=== PATIENT | female | born 1950 | race Caucasian/White ===

== ENCOUNTER 2020-06-28 | Inpatient (IN) | payer MEDICARE | END 2020-06-30 13:40 | DRG 190 | PROVIDERS: ADMIT Internal Medicine | PROC: 5A09457 Assistance with Respiratory Ventilation, 24-96 Consecutive Hours, Continuous Positive Airway Pressure (ICD-10-PCS; principal; 2020-06-28) | DX: J44.1 Chronic obstructive pulmonary disease with (acute) exacerbation (principal); J96.22 Acute and chronic respiratory failure with hypercapnia; J96.21 Acute and chronic respiratory failure with hypoxia; N17.0 Acute kidney failure with tubular necrosis; G93.41 Metabolic encephalopathy; I13.0 Hypertensive heart and chronic kidney disease with heart failure and stage 1 through stage 4 chronic kidney disease, or unspecified chronic kidney disease; E66.2 Morbid (severe) obesity with alveolar hypoventilation; Z68.43 Body mass index [BMI] 50.0-59.9, adult; L03.116 Cellulitis of left lower limb; L97.829 Non-pressure chronic ulcer of other part of left lower leg with unspecified severity; I50.32 Chronic diastolic (congestive) heart failure; E87.2 Acidosis; I27.20 Pulmonary hypertension, unspecified; I83.028 Varicose veins of left lower extremity with ulcer other part of lower leg; E11.22 Type 2 diabetes mellitus with diabetic chronic kidney disease; E11.42 Type 2 diabetes mellitus with diabetic polyneuropathy; E11.51 Type 2 diabetes mellitus with diabetic peripheral angiopathy without gangrene; Z89.611 Acquired absence of right leg above knee; E11.39 Type 2 diabetes mellitus with other diabetic ophthalmic complication; F31.9 Bipolar disorder, unspecified; Z79.4 Long term (current) use of insulin; Z20.822 Contact with and (suspected) exposure to COVID-19; G47.33 Obstructive sleep apnea (adult) (pediatric); E78.5 Hyperlipidemia, unspecified; N18.9 Chronic kidney disease, unspecified; E03.9 Hypothyroidism, unspecified; G89.4 Chronic pain syndrome; M47.816 Spondylosis without myelopathy or radiculopathy, lumbar region; E87.5 Hyperkalemia; I87.2 Venous insufficiency (chronic) (peripheral); I25.10 Atherosclerotic heart disease of native coronary artery without angina pectoris; G25.81 Restless legs syndrome; H40.9 Unspecified glaucoma; K21.9 Gastro-esophageal reflux disease without esophagitis; H42 Glaucoma in diseases classified elsewhere; G25.0 Essential tremor; E55.9 Vitamin D deficiency, unspecified; F41.9 Anxiety disorder, unspecified; Z99.81 Dependence on supplemental oxygen; Z79.82 Long term (current) use of aspirin; Z79.51 Long term (current) use of inhaled steroids; Z79.890 Hormone replacement therapy; Z79.01 Long term (current) use of anticoagulants; Z79.899 Other long term (current) drug therapy; Z87.891 Personal history of nicotine dependence; Z95.5 Presence of coronary angioplasty implant and graft; Z86.718 Personal history of other venous thrombosis and embolism; Z86.74 Personal history of sudden cardiac arrest; Z96.652 Presence of left artificial knee joint; Z98.42 Cataract extraction status, left eye; Z98.41 Cataract extraction status, right eye; Z90.81 Acquired absence of spleen; Z90.89 Acquired absence of other organs; Z90.710 Acquired absence of both cervix and uterus; Z90.722 Acquired absence of ovaries, bilateral; Z90.79 Acquired absence of other genital organ(s); Z87.42 Personal history of other diseases of the female genital tract; Z95.828 Presence of other vascular implants and grafts; Z98.890 Other specified postprocedural states; Z88.1 Allergy status to other antibiotic agents; Z88.8 Allergy status to other drugs, medicaments and biological substances; Z91.048 Other nonmedicinal substance allergy status; Z88.9 Allergy status to unspecified drugs, medicaments and biological substances; Z82.49 Family history of ischemic heart disease and other diseases of the circulatory system; Z83.3 Family history of diabetes mellitus; Z80.3 Family history of malignant neoplasm of breast; Z84.1 Family history of disorders of kidney and ureter; Z84.89 Family history of other specified conditions | CPT/HCPCS: 36415; 36600; 71045; 80053; 82306; 82803; 82805; 83605; 83615; 83735; 83880; 84145; 84484; 85025; 85379; 85610; 85652; 85730; 86140; 87040; 87070; 87077; 87186; 87205; 87635; 93005; 93306; 94640; 94660; 94760; 96361; 96374; 96375; 99291 ==

== ENCOUNTER 2020-07-10 13:56 | Inpatient (IN) | payer MEDICARE, OTHER ==
[2020-07-10] MEDS ORDERED: SODIUM CHLORIDE 0.9% 1,000 ML IV STA (15:13)
[2020-07-10] MEDS ORDERED: SODIUM CHLORIDE 0.9% 500 ML 500 ML IV ONE (15:13)
[2020-07-10] MEDS ORDERED: HYDROmorphone 1 MG/ML 1 ML SYRINGE IVP STA ×2 (15:14→19:15)
--- NOTE | 2020-07-10 15:17 | ED ---
Altered Mental Status HPI - General Chief Complaint: Altered Mental Status Stated Complaint: Altered Mental Status Time Seen by Provider: 07/10/20 14:45 Source: patient Mode of arrival: ambulatory Limitations: no limitations - History of Present Illness Initial Comments: This is a 69-year-old female who was brought in for evaluation of altered mental status apparently she woke up this morning and was alert and oriented x3 as opposed to normal for she has have a history of heart disease and stroke also [id number] amputation on the right. The family members present upon my evaluation he seems a have no new deficits. MD Complaint: altered mental status - Related Data Home Medications Medication Instructions Recorded Confirmed Acetaminophen Tab [Tylenol] 325 - 650 mg PO Q6H PRN 06/28/20 07/10/20 Albuterol Nebulized [Ventolin 2.5 mg INHALATION RT-BID PRN 06/28/20 07/10/20 Nebulized] Aspirin 81 mg PO DAILY 06/28/20 07/10/20 Atorvastatin [Lipitor] 40 mg PO HS 06/28/20 07/10/20 Baclofen 10 mg PO Q12H PRN 06/28/20 07/10/20 Ergocalciferol [Vitamin D2 (1250 1,250 mcg PO MO 06/28/20 07/10/20 Mcg = 56180 Iu)] Escitalopram [Lexapro] 20 mg PO DAILY 06/28/20 07/10/20 Fluticasone/Salmeterol [Advair Hfa 2 puff INHALATION RT-BID 06/28/20 07/10/20 115-21 Mcg Inhaler] Gemfibrozil [Lopid] 600 mg PO BID@0700,1600 06/28/20 07/10/20 Hydrocortisone Cream 1 applic TOPICAL Q12H PRN 06/28/20 07/10/20 [Hydrocortisone 2.5% Cream] Insulin Aspart [NovoLOG Flexpen] See Protocol SQ ACHS 06/28/20 07/10/20 Ketoconazole 2% Cream [Nizoral 2%] 1 applic TOPICAL Q12H PRN 06/28/20 07/10/20 Latanoprost/Pf [Latanoprost 0.005% 1 drop BOTH EYES HS 06/28/20 07/10/20 Eye Drop] Levothyroxine Sodium [Synthroid] 200 mcg PO DAILY@0500 06/28/20 07/10/20 Losartan [Cozaar] 50 mg PO DAILY 06/28/20 07/10/20 Metoprolol Succinate [Toprol XL] 50 mg PO BID 06/28/20 07/10/20 Mometasone Furoate [Elocon] 1 applic TOPICAL BID 06/28/20 07/10/20 QUEtiapine FUMARATE 300 mg PO HS@199906/28/20 07/10/20 Rivaroxaban [Xarelto] 20 mg PO HS 06/28/20 07/10/20 SILVER sulfADIAZINE Cream 1 applic TOPICAL BID 06/28/20 07/10/20 [Silvadene 1% Cream] Tamsulosin [Flomax] 0.4 mg PO BID@1399,199906/28/20 07/10/20 rOPINIRole HCL [Requip] 0.5 mg PO HS@199906/28/20 07/10/20 sitaGLIPtin PHOSPHATE [Januvia] 50 mg PO DAILY 06/28/20 07/10/20 Amoxicillin/Potassium Clav 1 tab PO BID@08,199907/10/20 07/10/20 [Augmentin 875-125 Tablet] Furosemide [Lasix] 40 mg PO DAILY@49907/10/20 07/10/20 Insulin Aspart [NovoLOG Flexpen] 13 units SQ AC-TID 07/10/20 07/10/20 Insulin Glargine [Lantus] 96 unit SQ HS 07/10/20 07/10/20 LORazepam [Ativan] 0.5 mg PO HS 07/10/20 07/10/20 Primidone [Mysoline] 250 mg PO HS@199907/10/20 07/10/20 Previous Rx's Medication Instructions Recorded HYDROcodone/APAP 7.5-325MG [[place] 1 tab PO Q8H PRN #9 tab 06/30/20 7.5-325] Ipratropium-Albuterol Nebulize 3 ml INHALATION RT-TID ml 06/30/20 [Duoneb 0.5 mg-3 mg/3 ml Soln] Pregabalin [Lyrica] 100 mg PO BID@799,1999 #6 cap 06/30/20 Allergies Allergy/AdvReac Type Severity Reaction Status Date / Time adhesive tape Allergy Unknown Verified 07/10/20 14:10 sertraline [From Zoloft] Allergy Unknown Verified 07/10/20 14:10 vancomycin Allergy Unknown Verified 07/10/20 14:10 birds Allergy Unknown Uncoded 06/28/20 10:38 Review of Systems ROS Statement: Those systems with pertinent positive or pertinent negative responses have been documented in the HPI. ROS Other: All systems not noted in ROS Statement are negative. Past Medical History Past Medical History: Heart Failure, COPD, Diabetes Mellitus, Hypertension, Renal Disease, Sleep Apnea/CPAP/BIPAP History of Any Multi-Drug Resistant Organisms: None Reported Past Surgical History: Hysterectomy Additional Past Surgical History / Comment(s): Above knee rt leg amputation. Spleen removal Past Psychological History: Anxiety, Depression Smoking Status: Former smoker Past Alcohol Use History: None Reported Past Drug Use History: None Reported General Exam - General Exam Comments Initial Comments: This is a well-developed obese female who is awake alert oriented 3 she demonstrates a tremor which apparently is normal for her and was somewhat increased today Limitations: no limitations General appearance: alert, in no apparent distress Head exam: Present: atraumatic, normocephalic, normal inspection Eye exam: Present: normal appearance, PERRL, EOMI. Absent: scleral icterus, conjunctival injection, periorbital swelling ENT exam: Present: mucous membranes dry Neck exam: Present: normal inspection, full ROM. Absent: tenderness, meningismus, lymphadenopathy Respiratory exam: Present: decreased breath sounds. Absent: respiratory distress, wheezes, rales, rhonchi, stridor Cardiovascular Exam: Present: regular rate, normal rhythm, normal heart sounds. Absent: systolic murmur, diastolic murmur, rubs, gallop, clicks GI/Abdominal exam: Present: soft, normal bowel sounds, other (Obese abdomen nontender). Absent: distended, tenderness, guarding, rebound, rigid Rectal exam: Present: deferred Extremities exam: Present: full ROM, normal capillary refill, other (Above the patient on the right wound is well-dressed on the left lower extremity). Absent: tenderness, pedal edema, joint swelling, calf tenderness Back exam: Present: normal inspection Neurological exam: Present: alert, oriented X3, CN II-XII intact Psychiatric exam: Present: normal affect, normal mood Skin exam: Present: warm, dry, intact, normal color. Absent: rash Course Vital Signs 0607/10/20 07/10/20 14:05 15:55 17:46 Temperature 97.8 F Pulse Rate 69 83 65 Respiratory 18 18 18 Rate Blood Pressure 141/68 156/85 123/69 O2 Sat by Pulse 93 L 92 L 93 L Oximetry 07/10/20 18:00 Temperature Pulse Rate 65 Respiratory 18 Rate Blood Pressure 128/64 O2 Sat by Pulse 93 L Oximetry Medical Decision Making - Medical Decision Making I did discuss findings with the patient family as well as with Dr. Silva. He does have evidence of dehydration as well as UTI per family members the patient is not that were normal cognitive function at this time. CT was negative. Patient will be admitted for IV fluids and buttock treatment. - Lab Data Result diagrams: 07/10/20 15:20 07/10/20 15:20 Lab Results 07/10/20 07/10/20 07/10/20 Range/Units 15:20 15:20 15:20 WBC 7.7 (3.8-10.6) k/uL RBC 4.20 (3.80-5.40) m/uL Hgb 13.7 (11.4-16.0) gm/dL Hct 41.6 (34.0-46.0) % MCV 99.0 (80.0-100.0) fL MCH 32.7 (25.0-35.0) pg MCHC 33.0 (31.0-37.0) g/dL RDW 15.4 (11.5-15.5) % Plt Count 265 (150-450) k/uL MPV 9.8 Neutrophils % 48 % Lymphocytes % 35 % Monocytes % 8 % Eosinophils % 5 % Basophils % 2 % Neutrophils # 3.7 (1.3-7.7) k/uL Lymphocytes # 2.7 (1.0-4.8) k/uL Monocytes # 0.7 (0-1.0) k/uL Eosinophils # 0.4 (0-0.7) k/uL Basophils # 0.1 (0-0.2) k/uL Macrocytosis Slight PT 10.5 (9.0-12.0) sec INR 1.0 (<1.2) APTT 23.5 (22.0-30.0) sec Sodium (137-145) mmol/L Potassium (3.5-5.1) mmol/L Chloride (98-107) mmol/L Carbon Dioxide (22-30) mmol/L Anion Gap mmol/L BUN (7-17) mg/dL Creatinine (0.52-1.04) mg/dL Est GFR (CKD-EPI)AfAm (>60 ml/min/1.73 sqM) Est GFR (CKD-EPI)NonAf (>60 ml/min/1.73 sqM) Glucose (74-99) mg/dL Plasma Lactic Acid Jonathan (0.7-2.0) mmol/L Calcium (8.4-10.2) mg/dL Magnesium (1.6-2.3) mg/dL Total Bilirubin (0.2-1.3) mg/dL AST (14-36) U/L ALT (4-34) U/L Alkaline Phosphatase (38-126) U/L Ammonia (<30) umol/L Creatine Kinase (30-135) U/L Troponin I (0.000-0.034) ng/mL Total Protein (6.3-8.2) g/dL Albumin (3.5-5.0) g/dL Urine Color Light Yellow Urine Appearance Cloudy H (Clear) Urine pH 6.0 (5.0-8.0) Ur Specific [place] 1.015 (1.001-1.035) Urine Protein 2+ H (Negative) Urine Glucose (UA) Negative (Negative) Urine Ketones Negative (Negative) Urine Blood Trace H (Negative) Urine Nitrite Negative (Negative) Urine Bilirubin Negative (Negative) Urine Urobilinogen <2.0 (<2.0) mg/dL Ur Leukocyte Esterase Large H (Negative) Urine RBC 24 H (0-5) /hpf Urine WBC >182 H (0-5) /hpf Urine WBC Clumps Few H (None) /hpf Ur Squamous Epith Cells 24 H (0-4) /hpf Urine Bacteria Rare H (None) /hpf Hyaline Casts 17 H (0-2) /lpf Urine Mucus Rare H (None) /hpf Urine Yeast (Budding) Occasional H (None) /hpf Urine Opiates Screen Detected H (NotDetected) Ur Oxycodone Screen Not Detected (NotDetected) Urine Methadone Screen Not Detected (NotDetected) Ur Propoxyphene Screen Not Detected (NotDetected) Ur Barbiturates Screen Detected H (NotDetected) U Tricyclic Antidepress Detected H (NotDetected) Ur Phencyclidine Scrn Not Detected (NotDetected) Ur Amphetamines Screen Not Detected (NotDetected) U Methamphetamines Scrn Not Detected (NotDetected) U Benzodiazepines Scrn Detected H (NotDetected) Urine Cocaine Screen Not Detected (NotDetected) U Marijuana (THC) Screen Not Detected (NotDetected) 07/10/20 07/10/20 07/10/20 Range/Units 15:20 15:20 15:20 WBC (3.8-10.6) k/uL RBC (3.80-5.40) m/uL Hgb (11.4-16.0) gm/dL Hct (34.0-46.0) % MCV (80.0-100.0) fL MCH (25.0-35.0) pg MCHC (31.0-37.0) g/dL RDW (11.5-15.5) % Plt Count (150-450) k/uL MPV Neutrophils % % Lymphocytes % % Monocytes % % Eosinophils % % Basophils % % Neutrophils # (1.3-7.7) k/uL Lymphocytes # (1.0-4.8) k/uL Monocytes # (0-1.0) k/uL Eosinophils # (0-0.7) k/uL Basophils # (0-0.2) k/uL Macrocytosis PT (9.0-12.0) sec INR (<1.2) APTT (22.0-30.0) sec Sodium 143 (137-145) mmol/L Potassium 5.2 H (3.5-5.1) mmol/L Chloride 101 (98-107) mmol/L Carbon Dioxide 32 H (22-30) mmol/L Anion Gap 10 mmol/L BUN 40 H (7-17) mg/dL Creatinine 1.36 H (0.52-1.04) mg/dL Est GFR (CKD-EPI)AfAm 47 (>60 ml/min/1.73 sqM) Est GFR (CKD-EPI)NonAf 40 (>60 ml/min/1.73 sqM) Glucose 150 H (74-99) mg/dL Plasma Lactic Acid Jonathan 1.5 (0.7-2.0) mmol/L Calcium 10.5 H (8.4-10.2) mg/dL Magnesium 2.3 (1.6-2.3) mg/dL Total Bilirubin 0.3 (0.2-1.3) mg/dL AST 43 H (14-36) U/L ALT 20 (4-34) U/L Alkaline Phosphatase 119 (38-126) U/L Ammonia 31 H (<30) umol/L Creatine Kinase 51 (30-135) U/L Troponin I 0.017 (0.000-0.034) ng/mL Total Protein 7.5 (6.3-8.2) g/dL Albumin 4.1 (3.5-5.0) g/dL Urine Color Urine Appearance (Clear) Urine pH (5.0-8.0) Ur Specific [place] (1.001-1.035) Urine Protein (Negative) Urine Glucose (UA) (Negative) Urine Ketones (Negative) Urine Blood (Negative) Urine Nitrite (Negative) Urine Bilirubin (Negative) Urine Urobilinogen (<2.0) mg/dL Ur Leukocyte Esterase (Negative) Urine RBC (0-5) /hpf Urine WBC (0-5) /hpf Urine WBC Clumps (None) /hpf Ur Squamous Epith Cells (0-4) /hpf Urine Bacteria (None) /hpf Hyaline Casts (0-2) /lpf Urine Mucus (None) /hpf Urine Yeast (Budding) (None) /hpf Urine Opiates Screen (NotDetected) Ur Oxycodone Screen (NotDetected) Urine Methadone Screen (NotDetected) Ur Propoxyphene Screen (NotDetected) Ur Barbiturates Screen (NotDetected) U Tricyclic Antidepress (NotDetected) Ur Phencyclidine Scrn (NotDetected) Ur Amphetamines Screen (NotDetected) U Methamphetamines Scrn (NotDetected) U Benzodiazepines Scrn (NotDetected) Urine Cocaine Screen (NotDetected) U Marijuana (THC) Screen (NotDetected) - EKG Data -: EKG Interpreted by Me EKG shows normal: sinus rhythm EKG Comments: Sinus rhythm first-degree AV block rate 68. Interval 220 QRS duration 120 daily since QTC 406/431 the posterior fascicular block - Radiology Data Radiology results: report reviewed (Imaging shows evidence of cardiomegaly some increased pulmonary vascular markings), image reviewed Disposition Clinical Impression: Delirium due to general medical condition, Urinary tract infection, Dehydration, Failure to thrive Disposition: ADMITTED IP TO THIS [facility] Condition: Fair Referrals: Damian Silva MD [Primary Care Provider] - 1-2 days
[2020-07-10 15:45] LABS: Basophils # (A) 0.1 k/uL (0-0.2); Basophils % (A) 2 %; Eosinophils # (A) 0.4 k/uL (0-0.7); Eosinophils % (A) 5 %; HCT 41.6 % (34.0-46.0); HGB 13.7 gm/dL (11.4-16.0); Lymphocytes # (A) 2.7 k/uL (1.0-4.8); Lymphocytes % (A) 35 %; MCH 32.7 pg (25.0-35.0); Macrocytosis Slight; Mean Platelet Volume 9.8; Monocytes # (A) 0.7 k/uL (0-1.0); Monocytes % (A) 8 %; Neutrophils # (A) 3.7 k/uL (1.3-7.7); Neutrophils % (A) 48 %; Platelet Count 265 k/uL (150-450); RDW 15.4 % (11.5-15.5); WBC 7.7 k/uL (3.8-10.6)
[2020-07-10 15:58] LABS: Partial Thromboplastin Time 23.5 sec (22.0-30.0); Prothrombin Time 10.5 sec (9.0-12.0)
[2020-07-10 16:15] LABS: Albumin 4.1 g/dL (3.5-5.0); Calcium 10.5 mg/dL (8.4-10.2); Magnesium 2.3 mg/dL (1.6-2.3); Potassium 5.2 mmol/L (3.5-5.1); Total Bilirubin 0.3 mg/dL (0.2-1.3); Total Protein 7.5 g/dL (6.3-8.2)
[2020-07-10 16:17] LABS: Lactic Acid, Venous 1.5 mmol/L (0.7-2.0)
[2020-07-10 16:24] LABS: Appearance,Urine Cloudy (Clear); Bacteria,Urine Rare /hpf; Bilirubin,Urine Negative (Negative); Blood,Urine Trace (Negative); Budding Yeast,Urine Occasional /hpf; Color,Urine Light Yellow; Glucose,Urine (UA) Negative (Negative); Hyaline Casts,Urine 17 /lpf (0-2); Ketones,Urine Negative (Negative); Leukocyte Esterase,Urine Large (Negative); Mucus,Urine Rare /hpf; Nitrite,Urine Negative (Negative); Protein,Urine 2+ (Negative); RBC,Urine 24 /hpf (0-5); Specific Gravity,Urine 1.015 (1.001-1.035); Squamous Epithelial Cell,Urine 24 /hpf (0-4); Urobilinogen,Urine <2.0 mg/dL (<2.0); WBC,Urine >182 /hpf (0-5)
[2020-07-10 16:27] LABS: Amphetamine Screen,Urine Not Detected (NotDetected); Barbiturate Screen,Urine Detected (NotDetected); Benzodiazepines Screen,Urine Detected (NotDetected); Cocaine Screen,Urine Not Detected (NotDetected); Methadone Screen, Urine Not Detected (NotDetected); Opiate Screen,Urine Detected (NotDetected); Oxycodone Screen, Urine Not Detected (NotDetected); Phencyclidine Screen,Urine Not Detected (NotDetected); Tricyclic Antidepressant,Urine Detected (NotDetected); Urn Cannabinoid Scrn Not Detected (NotDetected)
--- NOTE | 2020-07-10 16:31 | XR ---
EXAMINATION TYPE: XR chest 2V DATE OF EXAM: 07/10/2020 COMPARISON: Chest x-ray June 28, 2020 HISTORY: Altered mental status and weakness. TECHNIQUE: Frontal and lateral views of the chest are obtained. FINDINGS: Persistent cardiomegaly with improving central vascular congestion and persistent mild int erstitial edema. Exam suboptimal due to large body habitus. No new focal airspace opacity. Osseous st ructures are intact. IMPRESSION: Persistent cardiomegaly. Improved central vascular congestion. Persistent mild interstiti al edema.
[2020-07-10] MEDS ORDERED: cefTRIAXone IN SWFI 1,000 MG/10 ML SYRINGE IVP STA (17:15)
--- NOTE | 2020-07-10 17:49 | CT ---
EXAMINATION TYPE: CT brain wo con DATE OF EXAM: 07/10/2020 COMPARISON: None HISTORY: Altered mental status. CT DLP: 1099.4 mGycm Automated exposure control for dose reduction was used. Helical imaging through the brain. FINDINGS: There is no hemorrhage or hydrocephalus. No mass effect. Brain density is maintained. Calvarium is in tact. There are cerebral vascular calcifications. Paranasal sinuses are well aerated. Orbits show sym metric. IMPRESSION: NO ACUTE ABNORMALITIES EVIDENT.
[2020-07-10] MEDS ORDERED: NALOXONE 0.4 MG/ML 1 ML VIAL IV PRN (19:49)
[2020-07-10] MEDS ORDERED: CLOTRIMAZOLE 1% CREAM 30 GM TUBE TOPICAL PRN (19:51)
[2020-07-10] MEDS ORDERED: HYDROcodone/APAP 7.5-325MG 1 EACH TAB PO PRN (19:51)
[2020-07-10] MEDS ORDERED: HYDROCORTISONE TOPICAL PRN (19:51)
[2020-07-10] MEDS ORDERED: QUEtiapine 100 MG TAB PO SCH (20:00)
[2020-07-10] MEDS ORDERED: LORazepam 0.5 MG TAB PO SCH (21:00)
[2020-07-10] MEDS: BACLOFEN 10 MG TAB PO PRN (22:25)
[2020-07-10] MEDS: HYDROmorphone 1 MG/ML 1 ML SYRINGE IVP PRN (22:27)
[2020-07-10] MEDS: ATORVASTATIN 40 MG TAB PO SCH (22:28)
[2020-07-10] MEDS: PRIMIDONE 250 MG TAB PO SCH (22:29)
[2020-07-10] MEDS: LATANOPROST 0.005% OPHTH DROPS 2.5 ML BTL BOTH EYES SCH (22:29)
[2020-07-10] MEDS: INSULIN DETEMIR (LEVEMIR) 100 UNIT/ML SYR SQ SCH (22:30)
[2020-07-10] MEDS: TAMSULOSIN 0.4 MG CAP.ER.24H PO SCH (23:00)
[2020-07-10] MEDS: PREGABALIN 100 MG CAP PO SCH (23:00)
[2020-07-10] MEDS: SODIUM CHLORIDE 0.9% 1,000 ML IV SCH (23:01)
[2020-07-10] MEDS: RIVAROXABAN 20 MG TAB PO SCH (23:02)
[2020-07-10] MEDS: TRIAMCINOLONE 0.1% CREAM 80 GM TUBE TOPICAL SCH (23:02)
[2020-07-10] MEDS: METOPROLOL SUCCINATE (ER) 50 MG TAB.ER.24H PO SCH (23:11)
[2020-07-11] MEDS: SYMBICORT 160-4.5 MCG INHALER INHALATION SCH ×3 (00:15→19:41)
[2020-07-11] MEDS: IPRATROPIUM-ALBUTEROL 3 ML NEB INHALATION SCH ×4 (00:15→19:41)
[2020-07-11] MEDS: PREGABALIN 100 MG CAP PO SCH (00:29)
[2020-07-11] MEDS: HYDROmorphone 1 MG/ML 1 ML SYRINGE IVP PRN ×3 (02:01→08:21)
[2020-07-11] MEDS: LEVOTHYROXINE 100 MCG TAB PO SCH (05:08)
[2020-07-11] MEDS: FUROSEMIDE 40 MG TAB PO SCH (05:08)
[2020-07-11 08:16] LABS: Glucose,Whole Blood 211 mg/dL (75-99)
[2020-07-11] MEDS: INSULIN ASPART (NovoLOG) 100 UNIT/ML VIAL SQ SCH ×3 (08:20→18:12)
[2020-07-11] MEDS: LOSARTAN 50 MG TAB PO SCH (08:21)
[2020-07-11] MEDS: LINAGLIPTIN 5 MG TABLET PO SCH (08:21)
[2020-07-11] MEDS: PANTOPRAZOLE 40 MG/10 ML VIAL IV SCH (08:21)
[2020-07-11] MEDS: METOPROLOL SUCCINATE (ER) 50 MG TAB.ER.24H PO SCH ×2 (08:21→21:25)
[2020-07-11] MEDS: FENOFIBRATE 160 MG TAB PO SCH (08:21)
[2020-07-11] MEDS: ESCITALOPRAM 20 MG TAB PO SCH (08:21)
[2020-07-11] MEDS: ASPIRIN 81 MG PO SCH (08:24)
[2020-07-11] MEDS ORDERED: cefTRIAXone IN SWFI 1,000 MG/10 ML SYRINGE IVP SCH (09:00)
[2020-07-11] MEDS: SODIUM CHLORIDE 0.9% 1,000 ML IV SCH ×2 (11:57→12:03)
[2020-07-11] MEDS: TRIAMCINOLONE 0.1% CREAM 80 GM TUBE TOPICAL SCH ×2 (11:58→21:31)
[2020-07-11 12:30] LABS: Glucose,Whole Blood 139 mg/dL (75-99)
--- NOTE | 2020-07-11 14:21 | P.HPIM ---
History of Present Illness 69 [id number] female was brought in because of altered mental status which started yesterday. Patient is on multiple medications that can cause a toxic encephalopathy and altered mental status. Patient urine analysis today is a bnormal but it's a contaminated urine sample patient doesn't have any fever doesn't have any leukocytosis and unable to get much of the history from the patient patient has severe peripheral vascular disease with the ammonia amputation on the right side in the left leg does have redness and chronic venous stasis and ulcer which didn't appear infected but there is surrounding skin which appeared cellulitic. I'm unable to get a history from the patient because of her drowsiness. Patient was and creatinine is 1.3 patient was recently hospitalized for acute renal failure since then her creatinine has been around 1.3. Patient creatinine earlier this year is around 1. Review of Systems Unable to obtain due to her clinical condition Past Medical History Past Medical History: Asthma, Coronary Artery Disease (CAD), Heart Failure, COPD, CVA/TIA, Dementia, Diabetes Mellitus, Deep Vein Thrombosis (DVT), Eye Disorder, Hyperlipidemia, Hypertension, Liver Disease, Myocardial Infarction ([place]), Renal Disease, Sleep Apnea/CPAP/BIPAP, Thyroid Disorder, Vascular Disorder Additional Past Medical History / Comment(s): Pt recently admitted to [facility] on 06/28/20 with acute hypercarbic respiratory failure d/t CO2 narcosis d/t exacerbation COPD with obesity hypoventilation syndrome, JANES, metabolis encephalopathy d/t CO2 narcosis. 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 Last Myocardial Infarction Date:: 2009 History of Any Multi-Drug Resistant Organisms: None Reported Past Surgical History: Heart Catheterization With Stent, Hysterectomy, Joint Replacement Additional Past Surgical History / Comment(s): Splenectomy, R AKA, bilateral total knee arthroplasties, R AKA, PCI with stent, "umbrella" device inserted d/t DVTs. Past Anesthesia/Blood Transfusion Reactions: No Reported Reaction, Motion Sickness Date of Last Stent Placement:: 2009 Smoking Status: Former smoker - Past Family History Mother Family Medical History: Coronary Artery Disease (CAD), Myocardial Infarction ([place]) Additional Family Medical History / Comment(s): Mother of a [place] in her 60s. Father Family Medical History: Respiratory Disorder Additional Family Medical History / Comment(s): ETOH abuse, TB Medications and Allergies Home Medications Medication Instructions Recorded Confirmed Type Acetaminophen Tab [Tylenol] 325 - 650 mg PO Q6H PRN 06/28/20 07/10/20 History Albuterol Nebulized [Ventolin 2.5 mg INHALATION RT-BID PRN 06/28/20 07/10/20 History Nebulized] Aspirin 81 mg PO DAILY 06/28/20 07/10/20 History Atorvastatin [Lipitor] 40 mg PO HS 06/28/20 07/10/20 History Baclofen 10 mg PO Q12H PRN 06/28/20 07/10/20 History Ergocalciferol [Vitamin D2 (1250 1,250 mcg PO MO 06/28/20 07/10/20 History Mcg = 66798 Iu)] Escitalopram [Lexapro] 20 mg PO DAILY 06/28/20 07/10/20 History Fluticasone/Salmeterol [Advair Hfa 2 puff INHALATION RT-BID 06/28/20 07/10/20 History 115-21 Mcg Inhaler] Gemfibrozil [Lopid] 600 mg PO BID@0700,1600 06/28/20 07/10/20 History Hydrocortisone Cream 1 applic TOPICAL Q12H PRN 06/28/20 07/10/20 History [Hydrocortisone 2.5% Cream] Insulin Aspart [NovoLOG Flexpen] See Protocol SQ ACHS 06/28/20 07/10/20 History Ketoconazole 2% Cream [Nizoral 2%] 1 applic TOPICAL Q12H PRN 06/28/20 07/10/20 History Latanoprost/Pf [Latanoprost 0.005% 1 drop BOTH EYES HS 06/28/20 07/10/20 History Eye Drop] Levothyroxine Sodium [Synthroid] 200 mcg PO DAILY@0500 06/28/20 07/10/20 History Losartan [Cozaar] 50 mg PO DAILY 06/28/20 07/10/20 History Metoprolol Succinate [Toprol XL] 50 mg PO BID 06/28/20 07/10/20 History Mometasone Furoate [Elocon] 1 applic TOPICAL BID 06/28/20 07/10/20 History QUEtiapine FUMARATE 300 mg PO HS@199906/28/20 07/10/20 History Rivaroxaban [Xarelto] 20 mg PO HS 06/28/20 07/10/20 History SILVER sulfADIAZINE Cream 1 applic TOPICAL BID 06/28/20 07/10/20 History [Silvadene 1% Cream] Tamsulosin [Flomax] 0.4 mg PO BID@1400,199906/28/20 07/10/20 History rOPINIRole HCL [Requip] 0.5 mg PO HS@199906/28/20 07/10/20 History sitaGLIPtin PHOSPHATE [Januvia] 50 mg PO DAILY 06/28/20 07/10/20 History HYDROcodone/APAP 7.5-325MG [[place] 1 tab PO Q8H PRN #9 tab 06/30/20 07/10/20 Rx 7.5-325] Ipratropium-Albuterol Nebulize 3 ml INHALATION RT-TID ml 06/30/20 07/10/20 Rx [Duoneb 0.5 mg-3 mg/3 ml Soln] Pregabalin [Lyrica] 100 mg PO BID@0800,1999 #6 cap 06/30/20 07/10/20 Rx Amoxicillin/Potassium Clav 1 tab PO BID@08,199907/10/20 07/10/20 History [Augmentin 875-125 Tablet] Furosemide [Lasix] 40 mg PO DAILY@0500 07/10/20 07/10/20 History Insulin Aspart [NovoLOG Flexpen] 13 units SQ AC-TID 07/10/20 07/10/20 History Insulin Glargine [Lantus] 96 unit SQ HS 07/10/20 07/10/20 History LORazepam [Ativan] 0.5 mg PO HS 07/10/20 07/10/20 History Primidone [Mysoline] 250 mg PO HS@199907/10/20 07/10/20 History Allergies Allergy/AdvReac Type Severity Reaction Status Date / Time adhesive tape Allergy Unknown Verified 07/10/20 14:10 sertraline [From Zoloft] Allergy Unknown Verified 07/10/20 14:10 vancomycin Allergy Unknown Verified 07/10/20 14:10 birds Allergy Unknown Uncoded 06/28/20 10:38 Physical Exam Vitals: Vital Signs Temp Pulse Pulse Resp BP BP Pulse Ox 07/11/20 13:22 84 07/11/20 13:09 84 07/11/20 11:46 98.6 F 80 22 132/71 93 L 07/11/20 10:13 87 18 143/70 93 L 07/11/20 07:43 89 18 07/11/20 07:34 87 18 93 L 07/11/20 04:00 79 18 115/63 96 07/11/20 01:58 80 22 109/50 97 07/10/20 23:56 81 18 124/59 95 07/10/20 18:00 65 18 128/64 93 L 07/10/20 17:46 65 18 123/69 93 L 07/10/20 15:55 83 18 156/85 92 L Intake and Output 07/10/20 07/11/20 07/11/20 22:59 06:59 14:59 Other: # Voids 0 Weight 136.985 kg PHYSICAL EXAMINATION: GENERAL: Patient is drowsy and evidences orientation doesn't provide any history HEENT: Pupils are round and equally reacting to light. EOMI. No scleral icterus. No conjunctival pallor. Normocephalic, atraumatic. No pharyngeal erythema. No thyromegaly. CARDIOVASCULAR: S1 and S2 present. No murmurs, rubs, or gallops. PULMONARY: Chest is clear to auscultation, no wheezing or crackles. ABDOMEN: Soft, nontender, nondistended, normoactive bowel sounds. No palpable organomegaly. MUSCULOSKELETAL: No joint swelling or deformity. EXTREMITIES: No cyanosis, clubbing, or pedal edema. NEUROLOGICAL: Excessively drowsy SKIN: No rashes. Results CBC & Chem 7: 07/10/20 15:20 07/10/20 15:20 Labs: Abnormal Lab Results - Last 24 Hours (Table) 07/10/20 07/10/20 07/10/20 Range/Units 15:20 15:20 15:20 Potassium 5.2 H (3.5-5.1) mmol/L Carbon Dioxide 32 H (22-30) mmol/L BUN 40 H (7-17) mg/dL Creatinine 1.36 H (0.52-1.04) mg/dL Glucose 150 H (74-99) mg/dL POC Glucose (mg/dL) (75-99) mg/dL Calcium 10.5 H (8.4-10.2) mg/dL AST 43 H (14-36) U/L Ammonia 31 H (<30) umol/L Urine Appearance Cloudy H (Clear) Urine Protein 2+ H (Negative) Urine Blood Trace H (Negative) Ur Leukocyte Esterase Large H (Negative) Urine RBC 24 H (0-5) /hpf Urine WBC >182 H (0-5) /hpf Urine WBC Clumps Few H (None) /hpf Ur Squamous Epith Cells 24 H (0-4) /hpf Urine Bacteria Rare H (None) /hpf Hyaline Casts 17 H (0-2) /lpf Urine Mucus Rare H (None) /hpf Urine Yeast (Budding) Occasional H (None) /hpf Urine Opiates Screen Detected H (NotDetected) Ur Barbiturates Screen Detected H (NotDetected) U Tricyclic Antidepress Detected H (NotDetected) U Benzodiazepines Scrn Detected H (NotDetected) 07/11/20 07/11/20 Range/Units 08:14 12:29 Potassium (3.5-5.1) mmol/L Carbon Dioxide (22-30) mmol/L BUN (7-17) mg/dL Creatinine (0.52-1.04) mg/dL Glucose (74-99) mg/dL POC Glucose (mg/dL) 211 H 139 H (75-99) mg/dL Calcium (8.4-10.2) mg/dL AST (14-36) U/L Ammonia (<30) umol/L Urine Appearance (Clear) Urine Protein (Negative) Urine Blood (Negative) Ur Leukocyte Esterase (Negative) Urine RBC (0-5) /hpf Urine WBC (0-5) /hpf Urine WBC Clumps (None) /hpf Ur Squamous Epith Cells (0-4) /hpf Urine Bacteria (None) /hpf Hyaline Casts (0-2) /lpf Urine Mucus (None) /hpf Urine Yeast (Budding) (None) /hpf Urine Opiates Screen (NotDetected) Ur Barbiturates Screen (NotDetected) U Tricyclic Antidepress (NotDetected) U Benzodiazepines Scrn (NotDetected) Microbiology - Last 24 Hours (Table) 07/10/20 15:20 Urine Culture - Preliminary Urine,Clean Catch Thrombosis Risk Factor Assmnt - Choose All That Apply Any of the Below Risk Factors Present?: Yes Each Factor Represents 1 point: Abnormal pulmonary function (COPD), Obesity (BMI >25), Serious lung disease incl. pneumonia (< 1month) Other Risk Factors: Yes Each Risk Factor Represents 2 Points: Age 61-74 years Other congenital or acquired thrombophilia - If yes, enter type in comment: No Thrombosis Risk Factor Assessment Total Risk Factor Score: 5 Thrombosis Risk Factor Assessment Level: High Risk Assessment and Plan Plan: -Altered mental status and severe encephalopathy mostly toxic encephalopathy from medications although I cannot completely rule out urinary tract infection because of that reason ongoing continue with antibiotics patient's urine sample was contaminated urine sample. Patient is presently on Rocephin which will be continued -Possibility of urinary tract infection -Patient does have history of obstructive sleep apnea severe obesity have ventil ation syndrome, patient may have CO2 narcosis will obtain ABGs. may have metabolic encephalopathy from that. -Hypertension -Hyperlipidemia -Type 2 diabetes mellitus Hyperlipidemia with peripheral neuropathy -Bipolar disorder -Severe peripheral vascular disease with the amputation of right limb but patient has a bony amputation -Chronic venous stasis of left lower extremity with an ulcer which doesn't appear to be infected but there is surrounding cellulitis patient is already on antibiotic which I'll continue -Hypothyroidism -Restless leg syndrome -DVT prophylaxis with subcutaneous heparin -Possible chronic kidney disease stage II to 3 patient the new baseline creatinine is around 1.3 Coronary artery disease with stents in the past patient had cardiac arrest as well -Chronic hypoxic and hypercapnic respiratory failure secondary to obstructive sleep apnea and maybe COPD
[2020-07-11] MEDS: TAMSULOSIN 0.4 MG CAP.ER.24H PO SCH ×2 (15:45→21:25)
[2020-07-11 16:55] LABS: ABG Base Excess 4.7 mmol/L; ABG HCO3 30 mmol/L (21-25); ABG Oxygen Saturation 85.5 % (94-97); ABG PCO2 56 mmHg (35-45); ABG PH 7.35 (7.35-7.45); ABG TCO2 32 mmol/L (19-24); Allen Test Performed? Yes
[2020-07-11 16:57] LABS: ABG PO2 48 mmHg (83-108)
[2020-07-11 17:27] LABS: Glucose,Whole Blood 102 mg/dL (75-99)
--- NOTE | 2020-07-11 18:13 | P.EN ---
A- team: Indication: Altered mentation Patient seen and examined at bedside. Initially patient was rather obtunded on arrival to the room, she then started to wake up after a sternal rub. She was alert to being in the hospital as she settles emergency, she knew her name. She was asking for morphine. She became more awake at once we increased her O2 via nasal cannula. Vital signs reviewed General: Ill-appearing, disheveled, appears older than stated age, obese Derm: warm, dry Head: atraumatic, normocephalic, symmetric Eyes: EOMI, no lid lag, anicteric sclera Mouth: no lip lesion, mucus membranes moist Cardiovascular: S1-S2, no murmur, Lungs: Decreased breath sounds bilateral, no rhonchi, no rales , no accessory muscle use Abdominal: soft, nontender to palpation, no guarding, no appreciable organomegaly Ext: no gross muscle atrophy, trace edema, no contractures, right lower extremity AKA Neuro: CN II-XI grossly intact, no focal neuro deficits, tremor in left upper extremity that increases and decreases in severity. Psych: Lethargic Assessment/Plan: 1. Acute on Chronic Hypoxic respiratory failure, altered mentation - ABG reviewed and O2 increased to 6L - Neuro checks, seizure precautions - stop norco, lyrica - stat CBC, BMP Notified: Spoke with regarding following up labs A Total of 35 minutes of critical care time was spent on the complex care of this patient.
[2020-07-11 18:40] LABS: HCT 43.5 % (34.0-46.0); HGB 14.1 gm/dL (11.4-16.0); Hypochromasia Slight; MCH 32.7 pg (25.0-35.0); MCHC 32.4 g/dL (31.0-37.0); MCV 100.7 fL (80.0-100.0); Macrocytosis Slight; Mean Platelet Volume 9.4; Platelet Count 238 k/uL (150-450); RBC 4.32 m/uL (3.80-5.40); RDW 15.3 % (11.5-15.5); WBC 12.9 k/uL (3.8-10.6)
[2020-07-11 18:52] LABS: ALT 21 U/L (4-34); AST 48 U/L (14-36); African American GFR (CKD) 43 (>60 ml/min/1.73 sqM); Albumin 4.3 g/dL (3.5-5.0); Albumin/Globulin Ratio 1.2; Alkaline Phosphatase 137 U/L (38-126); Anion Gap 8 mmol/L; Blood Urea Nitrogen 39 mg/dL (7-17); Calcium 10.5 mg/dL (8.4-10.2); Carbon Dioxide 28 mmol/L (22-30); Chloride 105 mmol/L (98-107); Globulin 3.5 g/dL; Glucose 109 mg/dL (74-99); Non-African American GFR(CKD) 37 (>60 ml/min/1.73 sqM); Potassium 5.4 mmol/L (3.5-5.1); Sodium 141 mmol/L (137-145); Total Bilirubin 0.3 mg/dL (0.2-1.3); Total Protein 7.8 g/dL (6.3-8.2)
[2020-07-11 20:24] LABS: Glucose,Whole Blood 117 mg/dL (75-99)
[2020-07-11] MEDS ORDERED: ACETAMINOPHEN TAB 325 MG TAB PO STA (21:11)
[2020-07-11] MEDS: RIVAROXABAN 20 MG TAB PO SCH (21:25)
[2020-07-11] MEDS: ATORVASTATIN 40 MG TAB PO SCH (21:25)
[2020-07-11] MEDS: INSULIN DETEMIR (LEVEMIR) 100 UNIT/ML SYR SQ SCH (21:29)
[2020-07-11] MEDS: LATANOPROST 0.005% OPHTH DROPS 2.5 ML BTL BOTH EYES SCH (21:31)
[2020-07-11] MEDS: PRIMIDONE 250 MG TAB PO SCH (21:32)
[2020-07-11] MEDS: QUEtiapine 100 MG TAB PO SCH (21:32)
[2020-07-12 02:21] LABS: Glucose,Whole Blood 171 mg/dL (75-99)
[2020-07-12] MEDS: FUROSEMIDE 40 MG TAB PO SCH (05:30)
[2020-07-12] MEDS: LEVOTHYROXINE 100 MCG TAB PO SCH (05:30)
[2020-07-12] MEDS: FENOFIBRATE 160 MG TAB PO SCH (06:37)
[2020-07-12 06:40] LABS: Glucose,Whole Blood 179 mg/dL (75-99)
[2020-07-12] MEDS: SYMBICORT 160-4.5 MCG INHALER INHALATION SCH ×2 (07:45→19:26)
[2020-07-12] MEDS: IPRATROPIUM-ALBUTEROL 3 ML NEB INHALATION SCH ×3 (07:45→19:26)
[2020-07-12] MEDS: LINAGLIPTIN 5 MG TABLET PO SCH (09:22)
[2020-07-12] MEDS: METOPROLOL SUCCINATE (ER) 50 MG TAB.ER.24H PO SCH ×2 (09:22→20:28)
[2020-07-12] MEDS: ASPIRIN 81 MG PO SCH (09:22)
[2020-07-12] MEDS: ESCITALOPRAM 20 MG TAB PO SCH (09:22)
[2020-07-12] MEDS: LOSARTAN 50 MG TAB PO SCH (09:22)
[2020-07-12] MEDS: TRIAMCINOLONE 0.1% CREAM 80 GM TUBE TOPICAL SCH ×2 (09:23→20:30)
[2020-07-12] MEDS: PANTOPRAZOLE 40 MG/10 ML VIAL IV SCH (09:23)
[2020-07-12] MEDS: INSULIN ASPART (NovoLOG) 100 UNIT/ML VIAL SQ SCH ×3 (09:42→17:18)
[2020-07-12 09:44] LABS: Glucose,Whole Blood 292 mg/dL (75-99)
[2020-07-12 10:15] LABS: Prolactin 8.3 ng/mL (2.8-29.2)
[2020-07-12 11:49] LABS: Glucose,Whole Blood 226 mg/dL (75-99)
[2020-07-12] MEDS ORDERED: SODIUM POLYSTYRENE SULFONATE 15 GM/60 ML BOTTLE PO ONE (13:40)
[2020-07-12] MEDS: TAMSULOSIN 0.4 MG CAP.ER.24H PO SCH ×2 (15:08→20:28)
[2020-07-12] MEDS: HYDROcodone/APAP 5-325MG 1 EACH TAB PO PRN ×2 (15:15→23:03)
--- NOTE | 2020-07-12 16:23 | P.PN ---
Subjective 69 [id number] female was brought in because of altered mental status which started yesterday. Patient is on multiple medications that can cause a toxic encephalopathy and altered mental status. Patient urine analysis today is abnormal but it's a contaminated urine sample patient doesn't have any fever doesn't have any leukocytosis and unable to get much of the history from the patient patient has severe peripheral vascular disease with the ammonia amputation on the right side in the left leg does have redness and chronic venous stasis and ulcer which didn't appear infected but there is surrounding skin which appeared cellulitic. I'm unable to get a history from the patient because of her drowsiness. Patient was and creatinine is 1.3 patient was recently hospitalized for acute renal failure since then her creatinine has been around 1.3. Patient creatinine earlier this year is around 1. 07/12/2020 Patient is more awake today all the narcotics and opiates were discontinued at this time. Patient is clinically doing well patient urine cultures are positive for gram-negative bacilli awaiting cultures and studies possibly of discharge tomorrow. Patient is presently on Rocephin which will be continued. Patient's serum potassium is 5.4, patient's losartan were discontinued and patient will be started on low potassium diet and patient was given a dose of Kayexalate. Constitutional: Denied any fatigue denied any fever. Cardio vascular: denied any chest pain, palpitations Gastrointestinal denied any nausea vomiting Pulmonary: Denied any shortness of breath cough Neurologic denied any new focal deficits All inpatient medications were reviewed and appropriate changes in these medications as dictated in the interval history and assessment and plan. Objective - Vital Signs Vital signs: Vital Signs Temp 97.9 F 07/12/20 15:21 Pulse 80 07/12/20 15:21 Resp 18 07/12/20 15:21 BP 165/83 07/12/20 15:21 Pulse Ox 94 L 07/12/20 15:21 Intake & Output 07/11/20 07/12/20 07/12/20 18:59 06:59 18:59 Intake Total 138 Output Total 620 700 Balance -620 -562 Weight 136.985 kg 141 kg Intake: Oral 138 Output: Urine 620 700 Other: Voiding Method External Catheter External Catheter External Catheter # Voids 0 1 # Bowel Movements 3 - Exam PHYSICAL EXAMINATION: GENERAL: The patient is alert and oriented x3, not in any acute distress. Obese HEENT: Pupils are round and equally reacting to light. EOMI. No scleral icterus. No conjunctival pallor. Normocephalic, atraumatic. No pharyngeal erythema. No thyromegaly. CARDIOVASCULAR: S1 and S2 present. No murmurs, rubs, or gallops. PULMONARY: Chest is clear to auscultation, no wheezing or crackles. ABDOMEN: Soft, nontender, nondistended, normoactive bowel sounds. No palpable organomegaly. MUSCULOSKELETAL: No joint swelling or deformity. EXTREMITIES: No cyanosis, clubbing, or pedal edema. NEUROLOGICAL: Gross neurological examination did not reveal any focal deficits. SKIN: No rashes. - Labs CBC & Chem 7: 07/11/20 18:23 07/11/20 18:23 Labs: Abnormal Lab Results - Last 24 Hours (Table) 07/11/20 07/11/20 07/11/20 Range/Units 16:44 17:26 18:23 WBC 12.9 H (3.8-10.6) k/uL MCV 100.7 H (80.0-100.0) fL ABG pCO2 56 H (35-45) mmHg ABG pO2 48 L* (83-108) mmHg ABG HCO3 30 H (21-25) mmol/L ABG Total CO2 32 H (19-24) mmol/L ABG O2 Saturation 85.5 L (94-97) % Potassium (3.5-5.1) mmol/L BUN (7-17) mg/dL Creatinine (0.52-1.04) mg/dL Glucose (74-99) mg/dL POC Glucose (mg/dL) 102 H (75-99) mg/dL Calcium (8.4-10.2) mg/dL AST (14-36) U/L Alkaline Phosphatase (38-126) U/L Ammonia (<30) umol/L 07/11/20 07/11/20 07/11/20 Range/Units 18:23 18:23 20:22 WBC (3.8-10.6) k/uL MCV (80.0-100.0) fL ABG pCO2 (35-45) mmHg ABG pO2 (83-108) mmHg ABG HCO3 (21-25) mmol/L ABG Total CO2 (19-24) mmol/L ABG O2 Saturation (94-97) % Potassium 5.4 H (3.5-5.1) mmol/L BUN 39 H (7-17) mg/dL Creatinine 1.45 H (0.52-1.04) mg/dL Glucose 109 H (74-99) mg/dL POC Glucose (mg/dL) 117 H (75-99) mg/dL Calcium 10.5 H (8.4-10.2) mg/dL AST 48 H (14-36) U/L Alkaline Phosphatase 137 H (38-126) U/L Ammonia 30 H (<30) umol/L 07/12/20 07/12/20 07/12/20 Range/Units 02:20 06:38 09:42 WBC (3.8-10.6) k/uL MCV (80.0-100.0) fL ABG pCO2 (35-45) mmHg ABG pO2 (83-108) mmHg ABG HCO3 (21-25) mmol/L ABG Total CO2 (19-24) mmol/L ABG O2 Saturation (94-97) % Potassium (3.5-5.1) mmol/L BUN (7-17) mg/dL Creatinine (0.52-1.04) mg/dL Glucose (74-99) mg/dL POC Glucose (mg/dL) 171 H 179 H 292 H (75-99) mg/dL Calcium (8.4-10.2) mg/dL AST (14-36) U/L Alkaline Phosphatase (38-126) U/L Ammonia (<30) umol/L 07/12/20 Range/Units 11:44 WBC (3.8-10.6) k/uL MCV (80.0-100.0) fL ABG pCO2 (35-45) mmHg ABG pO2 (83-108) mmHg ABG HCO3 (21-25) mmol/L ABG Total CO2 (19-24) mmol/L ABG O2 Saturation (94-97) % Potassium (3.5-5.1) mmol/L BUN (7-17) mg/dL Creatinine (0.52-1.04) mg/dL Glucose (74-99) mg/dL POC Glucose (mg/dL) 226 H (75-99) mg/dL Calcium (8.4-10.2) mg/dL AST (14-36) U/L Alkaline Phosphatase (38-126) U/L Ammonia (<30) umol/L Microbiology - Last 24 Hours (Table) 07/10/20 17:45 Blood Culture - Preliminary Blood No Growth after 24 hours 07/10/20 18:00 Blood Culture - Preliminary Blood No Growth after 24 hours 07/10/20 15:20 Urine Culture - Preliminary Urine,Clean Catch Gram Neg Bacilli Assessment and Plan Plan: -Altered mental status and severe encephalopathy mostly toxic encephalopathy from medications although I cannot completely rule out urinary tract infection because of that reason ongoing continue with antibiotics, urine cultures are showing gram-negative bacilli Patient is presently on Rocephin which will be continued -Possibility of urinary tract infection -Patient does have history of obstructive sleep apnea severe obesity have ventilation syndrome, ABGs are not consistent with CO2 narcosis -Hypertension -Hyperlipidemia -Type 2 diabetes mellitus Hyperlipidemia with peripheral neuropathy -Bipolar disorder -Severe peripheral vascular disease with the amputation of right limb patient is a bony amputation -History of DVT some the past for which patient is on anti-correlation which will be continued -Chronic venous stasis of left lower extremity with an ulcer which doesn't appear to be infected but there is surrounding cellulitis patient is already on antibiotic for urinary tract infection which I'll continue -Hypothyroidism -Restless leg syndrome -Possible chronic kidney disease stage II to 3 patient the new baseline creatinine is around 1.3 Coronary artery disease with stents in the past patient had cardiac arrest as well -Chronic hypoxic and hypercapnic respiratory failure secondary to obstructive sleep apnea and maybe COPD
[2020-07-12] MEDS: amLODIPine 10 MG TAB PO SCH (16:45)
[2020-07-12 16:46] LABS: Glucose,Whole Blood 210 mg/dL (75-99)
[2020-07-12 20:14] LABS: Glucose,Whole Blood 176 mg/dL (75-99)
[2020-07-12] MEDS: ATORVASTATIN 40 MG TAB PO SCH (20:27)
[2020-07-12] MEDS: QUEtiapine 100 MG TAB PO SCH (20:29)
[2020-07-12] MEDS: RIVAROXABAN 20 MG TAB PO SCH (20:29)
[2020-07-12] MEDS: INSULIN DETEMIR (LEVEMIR) 100 UNIT/ML SYR SQ SCH (20:30)
[2020-07-12] MEDS: PRIMIDONE 250 MG TAB PO SCH (20:30)
[2020-07-12] MEDS: LATANOPROST 0.005% OPHTH DROPS 2.5 ML BTL BOTH EYES SCH (20:31)
[2020-07-13 01:09] LABS: HCT 40.6 % (34.0-46.0); HGB 13.6 gm/dL (11.4-16.0); MCH 32.9 pg (25.0-35.0); MCHC 33.5 g/dL (31.0-37.0); MCV 98.3 fL (80.0-100.0); Macrocytosis Slight; Mean Platelet Volume 9.8; Platelet Count 206 k/uL (150-450); RBC 4.13 m/uL (3.80-5.40); RDW 15.2 % (11.5-15.5); WBC 13.4 k/uL (3.8-10.6)
[2020-07-13 02:02] LABS: Magnesium 1.9 mg/dL (1.6-2.3); Potassium 4.3 mmol/L (3.5-5.1)
[2020-07-13 02:26] LABS: Glucose,Whole Blood 175 mg/dL (75-99)
[2020-07-13] MEDS: BACLOFEN 10 MG TAB PO PRN (03:47)
[2020-07-13 06:04] LABS: Glucose,Whole Blood 194 mg/dL (75-99)
[2020-07-13] MEDS: FUROSEMIDE 40 MG TAB PO SCH (06:15)
[2020-07-13] MEDS: FENOFIBRATE 160 MG TAB PO SCH (06:15)
[2020-07-13] MEDS: LEVOTHYROXINE 100 MCG TAB PO SCH (06:15)
[2020-07-13 07:02] LABS: Glucose,Whole Blood 201 mg/dL (75-99)
[2020-07-13] MEDS: SYMBICORT 160-4.5 MCG INHALER INHALATION SCH ×2 (07:48→20:48)
[2020-07-13] MEDS: IPRATROPIUM-ALBUTEROL 3 ML NEB INHALATION SCH ×3 (07:49→20:49)
[2020-07-13] MEDS: HYDROcodone/APAP 5-325MG 1 EACH TAB PO PRN ×3 (07:59→23:33)
[2020-07-13] MEDS: INSULIN ASPART (NovoLOG) 100 UNIT/ML VIAL SQ SCH ×3 (08:00→17:16)
[2020-07-13 08:55] LABS: Calcium 10.2 mg/dL (8.4-10.2)
[2020-07-13 09:02] LABS: Potassium 5.1 mmol/L (3.5-5.1)
[2020-07-13] MEDS ORDERED: METOPROLOL TARTRATE 25 MG TAB PO SCH (09:15)
--- NOTE | 2020-07-13 09:37 | P.PN ---
Subjective 69 [id number] female was brought in because of altered mental status which started yesterday. Patient is on multiple medications that can cause a toxic encephalopathy and altered mental status. Patient urine analysis today is abnormal but it's a contaminated urine sample patient doesn't have any fever doesn't have any leukocytosis and unable to get much of the history from the patient patient has severe peripheral vascular disease with the ammonia amputation on the right side in the left leg does have redness and chronic venous stasis and ulcer which didn't appear infected but there is surrounding skin which appeared cellulitic. I'm unable to get a history from the patient because of her drowsiness. Patient was and creatinine is 1.3 patient was recently hospitalized for acute renal failure since then her creatinine has been around 1.3. Patient creatinine earlier this year is around 1. 07/12/2020 Patient is more awake today all the narcotics and opiates were discontinued at this time. Patient is clinically doing well patient urine cultures are positive for gram-negative bacilli awaiting cultures and studies possibly of discharge tomorrow. Patient is presently on Rocephin which will be continued. Patient's serum potassium is 5.4, patient's losartan were discontinued and patient will be started on low potassium diet and patient was given a dose of Kayexalate. 07/13/2020 Patient wanted to go home today. The urine cultures are not finalized at continue with Rocephin for today. We will obtain a set basic metabolic profile for tomorrow patient is tachycardic with heart rate in 140s patient has atrial tachycardia will obtain a d-dimer and a TSH and also a chest x-ray patient oxygen requirements is marginally: Gone up patient was receiving IV fluids until yesterday. Concern for pulmonary edema. Her on low-dose of metoprolol. Constitutional: Denied any fatigue denied any fever. Cardio vascular: denied any chest pain, palpitations Gastrointestinal denied any nausea vomiting Pulmonary: Denied any shortness of breath cough Neurologic denied any new focal deficits All inpatient medications were reviewed and appropriate changes in these medications as dictated in the interval history and assessment and plan. Objective - Vital Signs Vital signs: Vital Signs Temp 98.6 F 07/13/20 04:00 Pulse 145 H 07/13/20 04:00 Resp 22 07/13/20 04:00 BP 149/83 07/13/20 04:00 Pulse Ox 93 L 07/13/20 04:00 Intake & Output 07/12/20 07/13/20 07/13/20 18:59 06:59 18:59 Intake Total 138 240 Output Total 700 1300 500 Balance -562 -1300 -260 Weight 138 kg Intake: Oral 138 240 Output: Urine 700 1300 500 Other: Voiding Method External Catheter External Catheter # Bowel Movements 3 - Exam PHYSICAL EXAMINATION: GENERAL: The patient is alert and oriented x3, not in any acute distress. Obese HEENT: Pupils are round and equally reacting to light. EOMI. No scleral icterus. No conjunctival pallor. Normocephalic, atraumatic. No pharyngeal erythema. No thyromegaly. CARDIOVASCULAR: S1 and S2 present. No murmurs, rubs, or gallop. Tachycardic PULMONARY: Chest is clear to auscultation, no wheezing or crackles. ABDOMEN: Soft, nontender, nondistended, normoactive bowel sounds. No palpable organomegaly. MUSCULOSKELETAL: No joint swelling or deformity. EXTREMITIES: No cyanosis, clubbing, or pedal edema. NEUROLOGICAL: Gross neurological examination did not reveal any focal deficits. SKIN: No rashes. - Labs CBC & Chem 7: 07/13/20 00:36 07/13/20 07:50 Labs: Abnormal Lab Results - Last 24 Hours (Table) 07/12/20 07/12/20 07/12/20 Range/Units 09:42 11:44 16:45 WBC (3.8-10.6) k/uL BUN (7-17) mg/dL Glucose (74-99) mg/dL POC Glucose (mg/dL) 292 H 226 H 210 H (75-99) mg/dL 07/12/20 07/13/20 07/13/20 Range/Units 20:12 00:36 02:25 WBC 13.4 H (3.8-10.6) k/uL BUN (7-17) mg/dL Glucose (74-99) mg/dL POC Glucose (mg/dL) 176 H 175 H (75-99) mg/dL 07/13/20 07/13/20 07/13/20 Range/Units 06:02 06:56 07:50 WBC (3.8-10.6) k/uL BUN 20 H (7-17) mg/dL Glucose 203 H (74-99) mg/dL POC Glucose (mg/dL) 194 H 201 H (75-99) mg/dL Microbiology - Last 24 Hours (Table) 07/10/20 17:45 Blood Culture - Preliminary Blood No Growth after 48 hours 07/10/20 18:00 Blood Culture - Preliminary Blood No Growth after 48 hours Assessment and Plan Plan: -Altered mental status and severe encephalopathy mostly toxic encephalopathy from medications although I cannot completely rule out urinary tract infection because of that reason ongoing continue with antibiotics, urine cultures are showing gram-negative bacilli Patient is presently on Rocephin which will be continued -Possibility of urinary tract infection, gram-negative bacilli in the urine is occasionally cultures are still pending -Atrial tachycardia: Etiology is not clear. Patient was started on metoprolol will obtain at least a TSH d-dimer and a chest x-ray as mentioned above. -Patient does have history of obstructive sleep apnea severe obesity have ventilation syndrome, ABGs are not consistent with CO2 narcosis -Hypertension -Hyperlipidemia -Type 2 diabetes mellitus Hyperlipidemia with peripheral neuropathy -Bipolar disorder -Severe peripheral vascular disease with the amputation of right above knee amputation -History of DVT some the past for which patient is on anti-coagulation which will be continued -Chronic venous stasis of left lower extremity with an ulcer which doesn't appear to be infected but there is surrounding cellulitis patient is already on antibiotic for urinary tract infection which I'll continue -Hypothyroidism -Restless leg syndrome -Possible chronic kidney disease stage II to 3 patient the new baseline creatinine is around 1.3 Coronary artery disease with stents in the past patient had cardiac arrest as well -Chronic hypoxic and hypercapnic respiratory failure secondary to obstructive sleep apnea and maybe COPD. wears 4 L of oxygen at home
--- NOTE | 2020-07-13 09:41 | XR ---
EXAMINATION TYPE: XR chest 1V DATE OF EXAM: 07/13/2020 COMPARISON: 07/10/2020 HISTORY: Altered mental status and weakness TECHNIQUE: Single frontal view of the chest is obtained. FINDINGS: Exam is limited by the portable technique. Grossly the lungs are clear. There is no definit e pneumothorax or large pleural effusion. The pulmonary vasculature is not congested but the heart size is prominent. The osseous structures ar e intact. IMPRESSION: Moderate to marked cardiomegaly without overt CHF. No evidence of acute cardiopulmonary disease.
[2020-07-13] MEDS: PANTOPRAZOLE 40 MG/10 ML VIAL IV SCH (09:45)
[2020-07-13] MEDS: METOPROLOL SUCCINATE (ER) 50 MG TAB.ER.24H PO SCH (09:46)
[2020-07-13] MEDS: LINAGLIPTIN 5 MG TABLET PO SCH (09:46)
[2020-07-13] MEDS: amLODIPine 10 MG TAB PO SCH (09:46)
[2020-07-13] MEDS: ESCITALOPRAM 20 MG TAB PO SCH (09:46)
[2020-07-13] MEDS: ASPIRIN 81 MG PO SCH (09:46)
[2020-07-13] MEDS ORDERED: METOPROLOL SUCCINATE (ER) 50 MG TAB.ER.24H PO STA (10:33)
[2020-07-13] MEDS ORDERED: NITROGLYCERIN SL TABS 0.4 MG TAB SUBLINGUAL ONE (10:47)
[2020-07-13 11:59] LABS: Glucose,Whole Blood 186 mg/dL (75-99)
[2020-07-13] MEDS: TAMSULOSIN 0.4 MG CAP.ER.24H PO SCH ×2 (14:43→20:08)
[2020-07-13] MEDS: TRIAMCINOLONE 0.1% CREAM 80 GM TUBE TOPICAL SCH ×2 (14:44→20:08)
[2020-07-13 16:37] LABS: Glucose,Whole Blood 188 mg/dL (75-99)
[2020-07-13] MEDS ORDERED: DILTIAZEM DRIP BOLUS FROM BAG 1 MG SOLN IV ONE (19:57)
[2020-07-13] MEDS: DILTIAZEM 125 MG in SODIUM CHLORIDE 0.9% 100 ML IV SCH (20:07)
[2020-07-13] MEDS: METOPROLOL SUCCINATE (ER) 100 MG TAB.ER.24H PO SCH (20:08)
[2020-07-13] MEDS: QUEtiapine 100 MG TAB PO SCH (20:08)
[2020-07-13] MEDS: RIVAROXABAN 20 MG TAB PO SCH (20:08)
[2020-07-13] MEDS: PRIMIDONE 250 MG TAB PO SCH (20:08)
[2020-07-13] MEDS: ATORVASTATIN 40 MG TAB PO SCH (20:08)
[2020-07-13] MEDS: ONDANSETRON 4 MG/2 ML VIAL IVP PRN (20:09)
[2020-07-13] MEDS: LATANOPROST 0.005% OPHTH DROPS 2.5 ML BTL BOTH EYES SCH (20:09)
[2020-07-13 20:22] LABS: Glucose,Whole Blood 255 mg/dL (75-99)
[2020-07-13] MEDS: INSULIN DETEMIR (LEVEMIR) 100 UNIT/ML SYR SQ SCH (20:53)
[2020-07-14] MEDS: BACLOFEN 10 MG TAB PO PRN ×2 (03:33→15:04)
[2020-07-14] MEDS: DILTIAZEM 125 MG in SODIUM CHLORIDE 0.9% 100 ML IV SCH (03:56)
[2020-07-14] MEDS: FENOFIBRATE 160 MG TAB PO SCH (05:59)
[2020-07-14] MEDS: FUROSEMIDE 40 MG TAB PO SCH (05:59)
[2020-07-14] MEDS: LEVOTHYROXINE 100 MCG TAB PO SCH (05:59)
[2020-07-14 06:54] LABS: Glucose,Whole Blood 162 mg/dL (75-99)
[2020-07-14] MEDS: INSULIN ASPART (NovoLOG) 100 UNIT/ML VIAL SQ SCH ×3 (07:47→17:27)
[2020-07-14] MEDS: IPRATROPIUM-ALBUTEROL 3 ML NEB INHALATION SCH ×3 (08:33→19:19)
[2020-07-14] MEDS: SYMBICORT 160-4.5 MCG INHALER INHALATION SCH ×2 (08:33→19:19)
[2020-07-14] MEDS ORDERED: ERGOCALCIFEROL 1,250 MCG (50,000 IU) CAPSULE PO SCH (09:00)
--- NOTE | 2020-07-14 09:17 | P.PN ---
Subjective Progress Note Date: 07/14/20 HISTORY OF PRESENT ILLNESS: This is a 70-year-old female who I follow at [facility] with a previous medical history significant for hypertension and hypertensive cardio vascular disease, hyperlipidemia, diabetes mellitus type 2 with diabetic polyneuropathy, hypothyroidism, CAD post PCI and stent placement, essential tremor, restless leg syndrome, bipolar disorder, recurrent DVT, peripheral arterial occlusive disease, with a recent blister formation to the left kirk was investigated as an outpatient and she had an arterial Doppler of the left lower extremity that did show evidence of moderate to severe PAD, and she was scheduled for CT angiography of the left lower extremity for further evaluation vascular surgery consultation, along with MRI of the left lower extremity to rule out any osteomyelitis of the kirk bone. Patient was recently hospitalized and discharged back to medical [place] on June 30 after she was treated for acute hypercapnic respiratory failure secondary to CO2 narcosis, exacerbation of COPD and obstructive sleep apnea and obesity hypoventilation syndrome. Patient was also treated for acute kidney injury secondary to acute tubular necrosis. Metabolic encephalopathy had improved during her hospitalization. She was also seen by vascular surgery with plan for outpatient CT angiogram via of the left lower extremity. Her echocardiogram on that hospitalization revealed EF of 45- 50% with severe concentric left ventricular hypertrophy, mild tricuspid regurgitation, borderline pulmonary artery hypertension. Patient was again admitted on July 11 to [facility] due to altered mental status and was diagnosed with toxic encephalopathy and acute urinary tract infection. A-Team was called that evening due to mental status changes patient was diagnosed with acute on chronic hypoxic respiratory failure and altered mentation. Ghent and Lyrica were initially stopped but Ghent has been resumed since that episode. Patient is seen today on the cardiac stepdown unit. She developed tachycardia and a cardiology consult was added and she was started on Cardizem drip. Patient also relates that she had an episode of chest pain last evening thought it was related to her "nerves". She states that she also had some nausea. Chest pain was in the midsternal area and nonradiating. Regarding her CPAP, patient is using the hospital device which she states is hard for her to tolerate. Patient's daughter is at bedside and has been updated. Patient denies having any fevers. Left lower extremity wound is improving. Urine culture is positive for Enterobacter cloacae An[facility] the next probable 48 hours. 07/14: Patient has been seen by cardiology and Cardizem drip has been discontinued, plan to continue Xarelto and cardiac medications and patient scheduled for Lexiscan stress test for tomorrow. Patient's daughter is at bedside and has been updated. Patient has been afebrile, heart rate 76, blood pressure 112/73, pulse ox 96% on 5 L nasal cannula. Electrolytes are normal, BUN 25 and creatinine 1.09. Blood sugars are running between 148 and 255. TSH 51.8 and free T4 0.73. REVIEW OF SYSTEMS: Constitutional: No documented fever, no chills, no night sweats. No weight change. Denies weakness, denies fatigue and lethargy. HEENT: No headache. No blurred vision or double vision, no loss of vision. No loss of Hearing, no ringing in the ears, no dizziness. No nasal drainage or congestion. No epistaxis. No sore throat. Lungs: No shortness of breath at rest, patient is at baseline, no cough, no sputum production. No wheezing. Reports dyspnea with activity. Cardiovascular: Intermittent chest pain, positive for left lower extremity edema. No palpitations. No paroxysmal nocturnal dyspnea. No orthopnea. No lightheadedness or dizziness. No syncopal episodes. Abdominal: Reports no abdominal pain. No nausea, vomiting. No diarrhea. No constipation. No bloody or tarry stools reports loss of appetite. Genitourinary: No dysuria, increased frequency, urgency. No urinary retention. Musculoskeletal: positive for myalgias. No muscle weakness, positive for gait dysfunction, positive for frequent falls, positive for left leg pain Integumentary: left kirk wound, no lesions. No rash or pruritus. No unusual bruising. No change in hair or nails. Neurologic: No aphasia. No facial droop. stuporous but arousable. No head injury. No headache. No paralysis, positive for parasthesia in the left leg Psychiatric: Positive for anxiety and depression. Endocrine: hyperglycemia. PHYSICAL EXAMINATION: General: 70-year-old who is resting in bariatric bed and appears to be comfortable and in no acute distress. Patient's daughter is at bedside. HEENT: Head is atraumatic, normocephalic, pupils were equal round reactive to light and recommendation, extraocular muscle movement were intact, sclera nonicteric, mucous membranes of the mouth are moist. Neck: Supple, no JVP, decreased carotid upstroke bilaterally, no lymphadenopathy. Chest: Decreased breath sounds at the bases, few rhonchi, minimal expiratory wheezes, no chest wall tenderness, no intercostal retractions. Heart: First heart sound is normal, second heart sounds normal, there is systolic ejection murmur 2/6 located in the left sternal border. Abdomen: Soft, nontender, nondistended, positive bowel sounds Extremities: There is right [id number] amputation, left lower extremity with chronic skin changes with the denuded blisters of the left kirk, dorsalis pedis 12 plus on the left. Neurologic examination: Patient is awake alert and oriented X3, cranial nerves II-12 appear grossly intact, muscle power were 5 out of 5 in upper extremities a nd 3 out of 5 in the left lower extremity, deep tendon reflexes were depressed. ASSESSMENT AND PLAN: 1. Toxic or septic metabolic encephalopathy possibly related to medications and urinary tract infection, resolved 2. Acute Enterobacter urinary tract infection. Antibiotics will be changed to doxycycline. 3. Chest pain with elevated troponins. Consult with cardiology appreciated. Patient is scheduled for stress test tomorrow.. Continue aspirin 81 mg daily, Lipitor 40 mg daily. 4. Sinus tachycardia. Cardiology consult. Patient is on a Cardizem drip. Toprol-XL increased to 100 mg twice daily. 5. Acute hypercarbic and hypoxic respiratory failure due to CO2 narcosis, obstructive sleep apnea with obesity hypoventilation syndrome and possible medication effects with Lyrica and Ghent. Breathing status is currently stable, wean oxygen down to patient's baseline, continue DuoNeb treatments 3 times daily, Symbicort 2 puffs twice daily. Continue BiPAP as patient will tolerate. 6. Acute kidney injury secondary to acute tubular necrosis. Improved and back to baseline. 7. Hypertension and hypertensive cardiovascular disease. Continue amlodipine 10 mg daily, Lasix 40 mg daily, Toprol-XL was increased during this hospitalization to 100 mg twice daily. 8. Hyperlipidemia. Continue low-cholesterol diet and atorvastatin 40 mg orally once every day, discontinue gemfibrozil. 9. Diabetes mellitus type 2 insulin requiring. Resume Lantus 96 units at bedtime along with the Humalog 13 units before each meal along with a sliding scale insulin, continue Januvia 50 mg orally once every day. 10. Diabetic polyneuropathy. Lyrica was discontinued due to mental status changes. 11. Obesity with obstructive sleep apnea and obesity hypoventilation syndrome continue with current BiPAP. 12. 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 Continue current pain management. Ghent was decreased to 5/325 mg 1 every 8 hours as needed, continue baclofen 10 mg orally 2 times every day. 13. Bipolar disorder. Continue Lexapro 20 mg orally once every day, continue Seroquel 300 mg at bedtime. 14. Severe PAD status post a recent arterial Doppler of the left lower extremity that document and moderate to severe disease. Patient has a follow-up appointment scheduled with Dr. Wagoner on July 16. She had recent angiogram done at [facility] on July 08. 15. Left kirk denuded ulcer with recurrent cellulitis of the left lower extremity with element of venous stasis with venous ulceration 16. Hypothyroidism. Continue patient on Synthroid 100 MCG orally once every day. 17. Restless leg syndrome. Continue Requip 0.5 mg at bedtime. 18. Essential tremor. Continue Primidone 250 mg at bedtime. 19. Vitamin D deficiency. Patient has been on vitamin D 50,000 units once every weekel. 20. GERD. Continue Protonix 40 mg once every day. 21. Glaucoma. Continue Xalatan 1 drop in both eyes at bedtime. 22. Recurrent DVT. Continue Xarelto 20 mg orally once every day. 23. GI prophylaxis. Continue PPI. 24. DVT prophylaxis. Continue Xarelto 15 mg once every day. 25. History of CAD with cardiac arrest status post left heart catheterization with PCI. Patient is full code. DISCHARGE PLAN Return to [facility] Impression and plan of care have been directed as dictated by the signing physician. Kemi Rodriguez nurse practitioner acting as scribe for signing physician. Objective - Vital Signs Vital signs: Vital Signs Temp 97.8 F 07/14/20 04:00 Pulse 76 07/14/20 04:00 Resp 20 07/14/20 04:00 BP 112/73 07/14/20 04:00 Pulse Ox 96 07/14/20 04:00 Intake & Output 07/13/20 07/14/20 07/14/20 18:59 06:59 18:59 Intake Total 720 618.167 Output Total 1000 400 Balance -280 218.167 Weight 137.5 kg Intake: Intake, IV Titration 78.167 Amount Diltiazem 125 mg In 78.167 Sodium Chloride 0.9% 100 ml @ 10 MG/HR 10 mls/hr IV .[id number] [facility] Rx#: [id number] Oral 720 540 Output: Urine 1000 400 Other: Voiding Method External Catheter External Catheter - Labs CBC & Chem 7: 07/16/20 03:22 07/14/20 10:22 Labs: Abnormal Lab Results - Last 24 Hours (Table) 07/13/20 07/13/20 07/13/20 Range/Units 07:50 09:50 09:50 D-Dimer 0.61 H (<0.60) mg/L FEU BUN 20 H (7-17) mg/dL Glucose 203 H (74-99) mg/dL POC Glucose (mg/dL) (75-99) mg/dL Troponin I 0.051 H* (0.000-0.034) ng/mL 07/13/20 07/13/20 07/13/20 Range/Units 11:59 14:31 16:36 D-Dimer (<0.60) mg/L FEU BUN (7-17) mg/dL Glucose (74-99) mg/dL POC Glucose (mg/dL) 186 H 188 H (75-99) mg/dL Troponin I 0.057 H* (0.000-0.034) ng/mL 07/13/20 07/13/20 07/14/20 Range/Units 16:46 20:21 06:52 D-Dimer (<0.60) mg/L FEU BUN (7-17) mg/dL Glucose (74-99) mg/dL POC Glucose (mg/dL) 255 H 162 H (75-99) mg/dL Troponin I 0.062 H* (0.000-0.034) ng/mL Microbiology - Last 24 Hours (Table) 07/10/20 17:45 Blood Culture - Preliminary Blood No Growth after 72 hours 07/10/20 18:00 Blood Culture - Preliminary Blood No Growth after 72 hours 07/10/20 15:20 Urine Culture - Final Urine,Clean Catch Enterobacter cloacae
[2020-07-14] MEDS: METOPROLOL SUCCINATE (ER) 100 MG TAB.ER.24H PO SCH ×2 (09:18→20:41)
[2020-07-14] MEDS: LINAGLIPTIN 5 MG TABLET PO SCH (09:19)
[2020-07-14] MEDS: amLODIPine 10 MG TAB PO SCH (09:19)
[2020-07-14] MEDS: HYDROcodone/APAP 5-325MG 1 EACH TAB PO PRN ×2 (09:19→16:39)
[2020-07-14] MEDS: ASPIRIN 81 MG PO SCH (09:20)
[2020-07-14] MEDS: ESCITALOPRAM 20 MG TAB PO SCH (09:20)
[2020-07-14] MEDS: PANTOPRAZOLE 40 MG/10 ML VIAL IV SCH (09:23)
[2020-07-14] MEDS: TRIAMCINOLONE 0.1% CREAM 80 GM TUBE TOPICAL SCH ×2 (10:00→20:43)
[2020-07-14] MEDS: DOXYCYCLINE 100 MG CAP PO SCH ×2 (11:31→20:42)
[2020-07-14 11:53] LABS: Calcium 9.7 mg/dL (8.4-10.2); Potassium 4.4 mmol/L (3.5-5.1)
[2020-07-14 11:53] LABS: Glucose,Whole Blood 148 mg/dL (75-99)
--- NOTE | 2020-07-14 12:00 | ECHOF ---
Referral Reason:LV function MEASUREMENTS -------- HEIGHT: 157.5 cm WEIGHT: 137.4 kg BP: IVSd: 1.9 cm (0.6 - 1.1) LVIDd: 4.4 cm (3.9 - 5.3) LVPWd: 2.0 cm (0.6 - 1.1) IVSs: 2.1 cm LVIDs: 3.1 cm LVPWs: 2.4 cm FINDINGS -------- This was a technically difficult study with suboptimal views. Limited Study Grossly normal LV size and systolic function. Unable to comment on regional wall motion. There is m oderate concentric left ventricular hypertrophy. Lumason used CONCLUSIONS -------- 1. Grossly normal LV size and systolic function. Unable to comment on regional wall motion. 2. There is moderate concentric left ventricular hypertrophy. MATERIALS DEVELOPMENT ENGINEER: Luanne Hnakins RDCS
--- NOTE | 2020-07-14 12:23 | P.CRDCN ---
History of Present Illness Consult date: 07/14/20 History of present illness: HISTORY OF PRESENT ILLNESS: This is a 69-year-old female with a past medical history significant for coronary artery disease with previous PCI to the RCA, diabetes mellitus, COPD on home oxygen, hypertension, hyperlipidemia, DVT on anticoagulation with Xarelto, and right BKA. Patient has not been seen in the office since 2011. We have been asked to see the patient in consultation for chest pain. Patient examined at the bedside. Patient is admitted to the hospital secondary to altered mental status and urinary tract infection. Patient states yesterday while she was sitting in bed relaxing she began having chest pain. She states the pain was in the middle of her chest and did not radiate. She denied having any shortness of breath. She denied nausea or vomiting. Denies diaphoresis. He was also found to be tachycardic yesterday and was started on a Cardizem drip. This is still infusing at 10 mg an hour. Telemetry reveals sinus mechanism with a heart rate in the 70s. EKG reveals SVT. Telemetry this morning reveals sinus mechanism in the 70s Chest xray moderate to marked cardiomegaly without overt CHF. No evidence of acute cardiopulmonary disease. Laboratory data: WBC 13.4. Hemoglobin 13.6. Platelet count 206. Sodium 138. Potassium 4.4. BUN 25. Creatinine 1.09. Troponin 0.017. 0.051. 0.057. 0.062. Current home cardiac medications include Xarelto 20 mg daily, metoprolol succinate 50 mg twice a day, losartan 50 mg daily, Lasix 40 mg daily, Lipitor 40 mg daily, and aspirin 81 mg daily Limited echocardiogram completed today reveals grossly normal LV size and systolic function. Unable to comment on regional wall motion. REVIEW OF SYSTEMS: At the time of my exam: CONSTITUTIONAL: Denies fever or chills. HEENT: Denies blurred vision, vision changes, or eye pain. Denies hemoptysis CARDIOVASCULAR: Denies chest pain. Denies orthopnea. Denies PND. Denies palpitations RESPIRATORY: Denies shortness of breath. GASTROINTESTINAL: Denies abdominal pain. Denies nausea or vomiting. HEMATOLOGIC: Denies bleeding disorders. GENITOURINARY: Denies any blood in urine. SKIN: Denies pruitis. Denies rash. PHYSICAL EXAM: VITAL SIGNS: Reviewed. GENERAL: Well-developed in no acute distress. HEENT: Head is normocephalic. Pupils are equal, round. Sclerae anicteric. Mucous membranes of the mouth are moist. Neck supple. No JVD or thyromegaly LUNGS: Respirations even and unlabored. Lungs diminished bilaterally. HEART: Regular rate and rhythm. S1 and S2 heard. ABDOMEN: Soft. Nondistended. Nontender. EXTREMITIES: Normal range of motion. No clubbing or cyanosis. Peripheral pulses intact. No lower extremity edema. Right BKA. NEUROLOGIC: Awake and alert. Oriented x 3. 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 Borges Nurse practitioner note has been reviewed by physician. Signing provider agrees with the documented findings, assessment, and plan of care. Past Medical History Past Medical History: Asthma, Coronary Artery Disease (CAD), Heart Failure, COPD, CVA/TIA, Dementia, Diabetes Mellitus, Deep Vein Thrombosis (DVT), Eye Disorder, Hyperlipidemia, Hypertension, Liver Disease, Myocardial Infarction (MD), Renal Disease, Sleep Apnea/CPAP/BIPAP, Thyroid Disorder, Vascular Disorder Additional Past Medical History / Comment(s): Pt recently admitted to [facility] on 06/28/20 with acute hypercarbic respiratory failure d/t CO2 narcosis d/t exacerbation COPD with obesity hypoventilation syndrome, JANES, metabolis encephal opathy d/t CO2 narcosis. Other hx: 2010 MD with cardiac arrest, pt's akshat states memory issues ever since which have been worsening, chronic hypoxic respiratory failure with oxygen during day, COLT with bipap at night, IDDM with polyneuropathy, CKD stage III, anemia, splenomegaly/SPLEENECTOMY, essential tremors, CVA-akshat describes as a small/mini stroke, severe PAD, L kirk blister/recurrent cellulitis, chronic venous stasis, chronic low back pain/spondylosis, fatty liver per past medical record, occasional incontinence, hypothyroid, R total knee with post wound leading to R AKA. Last Myocardial Infarction Date:: 2009 History of Any Multi-Drug Resistant Organisms: None Reported Past Surgical History: Heart Catheterization With Stent, Hysterectomy, Joint Replacement Additional Past Surgical History / Comment(s): Splenectomy, R AKA, bilateral total knee arthroplasties, R AKA, PCI with stent, "umbrella" device inserted d/t DVTs. Past Anesthesia/Blood Transfusion Reactions: No Reported Reaction, Motion Sickness Date of Last Stent Placement:: 2009 Smoking Status: Former smoker - Past Family History Mother Family Medical History: Coronary Artery Disease (CAD), Myocardial Infarction (MD) Additional Family Medical History / Comment(s): Mother of a MD in her 60s. Father Family Medical History: Respiratory Disorder Additional Family Medical History / Comment(s): ETOH abuse, TB Medications and Allergies Home Medications Medication Instructions Recorded Confirmed Type Acetaminophen Tab [Tylenol] 325 - 650 mg PO Q6H PRN 06/28/20 07/10/20 History Albuterol Nebulized [Ventolin 2.5 mg INHALATION RT-BID PRN 06/28/20 07/10/20 History Nebulized] Aspirin 81 mg PO DAILY 06/28/20 07/10/20 History Atorvastatin [Lipitor] 40 mg PO HS 06/28/20 07/10/20 History Baclofen 10 mg PO Q12H PRN 06/28/20 07/10/20 History Ergocalciferol [Vitamin D2 (1250 1,250 mcg PO MO 06/28/20 07/10/20 History Mcg = 03069 Iu)] Escitalopram [Lexapro] 20 mg PO DAILY 06/28/20 07/10/20 History Fluticasone/Salmeterol [Advair Hfa 2 puff INHALATION RT-BID 06/28/20 07/10/20 History 115-21 Mcg Inhaler] Gemfibrozil [Lopid] 600 mg PO BID@0700,1600 06/28/20 07/10/20 History Hydrocortisone Cream 1 applic TOPICAL Q12H PRN 06/28/20 07/10/20 History [Hydrocortisone 2.5% Cream] Insulin Aspart [NovoLOG Flexpen] See Protocol SQ ACHS 06/28/20 07/10/20 History Ketoconazole 2% Cream [Nizoral 2%] 1 applic TOPICAL Q12H PRN 06/28/20 07/10/20 History Latanoprost/Pf [Latanoprost 0.005% 1 drop BOTH EYES HS 06/28/20 07/10/20 History Eye Drop] Levothyroxine Sodium [Synthroid] 200 mcg PO DAILY@0500 06/28/20 07/10/20 History Losartan [Cozaar] 50 mg PO DAILY 06/28/20 07/10/20 History Metoprolol Succinate [Toprol XL] 50 mg PO BID 06/28/20 07/10/20 History Mometasone Furoate [Elocon] 1 applic TOPICAL BID 06/28/20 07/10/20 History QUEtiapine FUMARATE 300 mg PO HS@199906/28/20 07/10/20 History Rivaroxaban [Xarelto] 20 mg PO HS 06/28/20 07/10/20 History SILVER sulfADIAZINE Cream 1 applic TOPICAL BID 06/28/20 07/10/20 History [Silvadene 1% Cream] Tamsulosin [Flomax] 0.4 mg PO BID@1400,199906/28/20 07/10/20 History rOPINIRole HCL [Requip] 0.5 mg PO HS@199906/28/20 07/10/20 History sitaGLIPtin PHOSPHATE [Januvia] 50 mg PO DAILY 06/28/20 07/10/20 History HYDROcodone/APAP 7.5-325MG [Hudson 1 tab PO Q8H PRN #9 tab 06/30/20 07/10/20 Rx 7.5-325] Ipratropium-Albuterol Nebulize 3 ml INHALATION RT-TID ml 06/30/20 07/10/20 Rx [Duoneb 0.5 mg-3 mg/3 ml Soln] Pregabalin [Lyrica] 100 mg PO BID@799,1999 #6 cap 06/30/20 07/10/20 Rx Amoxicillin/Potassium Clav 1 tab PO BID@0800,199907/10/20 07/10/20 History [Augmentin 875-125 Tablet] Furosemide [Lasix] 40 mg PO DAILY@0500 07/10/20 07/10/20 History Insulin Aspart [NovoLOG Flexpen] 13 units SQ AC-TID 07/10/20 07/10/20 History Insulin Glargine [Lantus] 96 unit SQ HS 07/10/20 07/10/20 History LORazepam [Ativan] 0.5 mg PO HS 07/10/20 07/10/20 History Primidone [Mysoline] 250 mg PO HS@199907/10/20 07/10/20 History Allergies Allergy/AdvReac Type Severity Reaction Status Date / Time adhesive tape Allergy Unknown Verified 07/10/20 14:10 sertraline [From Zoloft] Allergy Unknown Verified 07/10/20 14:10 vancomycin Allergy Unknown Verified 07/10/20 14:10 birds Allergy Unknown Uncoded 06/28/20 10:38 Physical Exam Vitals: Vital Signs Temp Pulse Pulse Resp BP Pulse Ox 07/14/20 11:38 97.6 F 62 20 131/62 95 07/14/20 09:13 97.6 F 70 20 131/63 93 L 07/14/20 08:44 86 07/14/20 08:34 84 07/14/20 04:00 97.8 F 76 20 112/73 96 07/14/20 00:00 97.8 F 78 20 125/65 94 L 07/13/20 20:00 97.7 F 150 H 22 137/81 07/13/20 16:00 97.6 F 143 H 19 153/92 Intake and Output 07/13/20 07/14/20 07/14/20 22:59 06:59 14:59 Intake Total 240 618.167 420 Output Total 200 200 Balance 40 418.167 420 Intake: Intake, IV Titration 78.167 Amount Diltiazem 125 mg In 78.167 Sodium Chloride 0.9% 100 ml @ 10 MG/HR 10 mls/hr IV .[id number] [facility] Rx#: [id number] Oral 240 540 420 Output: Urine 200 200 Other: Voiding Method External Catheter External Catheter External Catheter Weight 137.5 kg Results 07/13/20 00:36 07/14/20 10:22 Cardiac Enzymes 07/13/20 07/13/20 07/13/20 Range/Units 09:50 14:31 16:46 Troponin I 0.051 H* 0.057 H* 0.062 H* (0.000-0.034) ng/mL Comprehensive Metabolic Panel 07/14/20 Range/Units 10:22 Sodium 138 (137-145) mmol/L Potassium 4.4 (3.5-5.1) mmol/L Chloride 99 (98-107) mmol/L Carbon Dioxide 30 (22-30) mmol/L BUN 25 H (7-17) mg/dL Creatinine 1.09 H (0.52-1.04) mg/dL Glucose 164 H (74-99) mg/dL Calcium 9.7 (8.4-10.2) mg/dL Current Medications Generic Name Dose Route Start Last Admin Trade Name Freq PRN Reason Stop Dose Admin Hydrocodone Bitart/Acetaminophen 1 each 07/12/20 13:41 07/14/20 09:19 Hydrocodone/Apap 5-325mg 1 Each Tab PO 1 each Q8HR PRN Administration Pain Albuterol/Ipratropium 3 ml 07/10/20 20:00 07/14/20 11:30 Ipratropium-Albuterol 3 Ml Neb INHALATION Not Given RT-TID ANNA Aminophylline 100 mg 07/15/20 06:00 Aminophylline 500 Mg/20 Ml Vial IV 07/15/20 23:00 ONCE PRN Patient Response Amlodipine Besylate 10 mg 07/12/20 16:30 07/14/20 09:19 Amlodipine 10 Mg Tab PO 10 mg DAILY ANNA Administration Aspirin 81 mg 07/11/20 09:00 07/14/20 09:20 Aspirin 81 Mg PO 81 mg DAILY ANNA Administration Atorvastatin Calcium 40 mg 07/10/20 21:00 07/13/20 20:08 Atorvastatin 40 Mg Tab PO 40 mg HS ANNA Administration Baclofen 10 mg 07/10/20 19:51 07/14/20 03:33 Baclofen 10 Mg Tab PO 10 mg Q12H PRN Administration Pain Budesonide/Formoterol Fumarate 2 puff 07/10/20 20:00 07/14/20 08:33 Symbicort 160-4.5 Mcg Inhaler INHALATION 2 puff RT-BID ANNA Administration Caffeine Citrate 60 mg 07/15/20 06:00 Caffeine Citrate 60 Mg/3 Ml Vial IV 07/15/20 23:00 ONCE PRN Patient Response Clotrimazole 1 applic 07/10/20 19:51 Clotrimazole 1% Cream 30 Gm Tube TOPICAL Q12H PRN under breasts when flared Doxycycline Monohydrate 100 mg 07/14/20 09:15 07/14/20 11:31 Doxycycline 100 Mg Cap PO 100 mg BID ANNA Administration Ergocalciferol 1,250 mcg 07/14/20 09:00 07/14/20 09:20 Ergocalciferol 1,250 Mcg (50,000 Iu) Capsule PO 1,250 mcg MO ANNA Administration Escitalopram Oxalate 20 mg 07/11/20 09:00 07/14/20 09:20 Escitalopram 20 Mg Tab PO 20 mg DAILY ANNA Administration Fenofibrate 160 mg 07/11/20 07:00 07/14/20 05:59 Fenofibrate 160 Mg Tab PO 160 mg DAILY@0700 ANNA Administration Furosemide 40 mg 07/11/20 05:00 07/14/20 05:59 Furosemide 40 Mg Tab PO 40 mg DAILY@0500 ANNA Administration Insulin Aspart 13 unit 07/11/20 07:30 07/14/20 07:47 Insulin Aspart (Novolog) 100 Unit/Ml Vial SQ 13 unit AC-TID ANNA Administration Insulin Detemir 96 unit 07/10/20 21:00 07/13/20 20:53 Insulin Detemir (Levemir) 100 Unit/Ml Syr SQ 96 unit HS [facility] Administration Latanoprost 1 drops 07/10/20 21:00 07/13/20 20:09 Latanoprost 0.005% Ophth Drops 2.5 Ml Btl BOTH EYES 1 drops HS ANNA Administration Levothyroxine Sodium 200 mcg 07/11/20 05:00 07/14/20 05:59 Levothyroxine 100 Mcg Tab PO 200 mcg DAILY@0500 ANNA Administration Linagliptin 5 mg 07/11/20 09:00 07/14/20 09:19 Linagliptin 5 Mg Tablet PO 5 mg DAILY ANNA Administration Metoprolol Succinate 100 mg 07/13/20 21:00 07/14/20 09:18 Metoprolol Succinate (Er) 100 Mg Tab.Er.24h PO 100 mg BID ANNA Administration Naloxone HCl 0.2 mg 07/10/20 19:49 Naloxone 0.4 Mg/Ml 1 Ml Vial IV Q2M PRN Opioid Reversal Ondansetron HCl 4 mg 07/10/20 19:49 07/13/20 20:09 Ondansetron 4 Mg/2 Ml Vial IVP 4 mg Q8HR PRN Administration Nausea And Vomiting Pantoprazole Sodium 40 mg 07/15/20 07:30 Pantoprazole 40 Mg Tablet PO AC-BRKFST [facility] Primidone 250 mg 07/10/20 20:00 07/13/20 20:08 Primidone 250 Mg Tab PO 250 mg HS@1999 ANNA Administration Quetiapine Fumarate 100 mg 07/11/20 20:00 07/13/20 20:08 Quetiapine 100 Mg Tab PO 100 mg HS@1999 ANNA Administration Regadenoson 0.4 mg 07/15/20 06:00 Regadenoson 0.4 Mg/5 Ml Syringe IV 07/15/20 23:00 ONCE PRN Per Protocol Rivaroxaban 20 mg 07/10/20 21:00 07/13/20 20:08 Rivaroxaban 20 Mg Tab PO 20 mg HS [facility] Administration Ropinirole HCl 0.5 mg 07/10/20 20:00 07/13/20 20:08 Ropinirole Hcl 0.25 Mg Tab PO 0.5 mg HS@1999 [facility] Administration Silver Sulfadiazine 1 applic 07/10/20 21:00 07/14/20 10:00 Silver Sulfadiazine 1% Cream 25 Gm Tube TOPICAL 1 applic BID ANNA Administration Tamsulosin HCl 0.4 mg 07/10/20 20:00 07/13/20 20:08 Tamsulosin 0.4 Mg Cap.Er.24h PO 0.4 mg BID@1400,1999 [facility] Administration Triamcinolone Acetonide 1 applic 07/10/20 21:00 07/14/20 10:00 Triamcinolone 0.1% Cream 80 Gm Tube TOPICAL 1 applic BID ANNA Administration Intake and Output 07/13/20 07/14/20 07/14/20 22:59 06:59 14:59 Intake Total 240 618.167 420 Output Total 200 200 Balance 40 418.167 420 Intake: Intake, IV Titration 78.167 Amount Diltiazem 125 mg In 78.167 Sodium Chloride 0.9% 100 ml @ 10 MG/HR 10 mls/hr IV .[id number] [facility] Rx#: [id number] Oral 240 540 420 Output: Urine 200 200 Other: Voiding Method External Catheter External Catheter External Catheter Weight 137.5 kg 07/13/20 00:36 07/14/20 10:22
[2020-07-14 13:02] LABS: T4, Free (Free Thyroxine) 0.73 ng/dL (0.78-2.19)
[2020-07-14] MEDS: TAMSULOSIN 0.4 MG CAP.ER.24H PO SCH ×2 (15:04→20:41)
[2020-07-14 16:56] LABS: Glucose,Whole Blood 136 mg/dL (75-99)
[2020-07-14] MEDS: ONDANSETRON 4 MG/2 ML VIAL IVP PRN (17:30)
[2020-07-14 20:25] LABS: Glucose,Whole Blood 227 mg/dL (75-99)
[2020-07-14] MEDS: INSULIN DETEMIR (LEVEMIR) 100 UNIT/ML SYR SQ SCH (20:42)
[2020-07-14] MEDS: ATORVASTATIN 40 MG TAB PO SCH (20:42)
[2020-07-14] MEDS: RIVAROXABAN 20 MG TAB PO SCH (20:42)
[2020-07-14] MEDS: QUEtiapine 100 MG TAB PO SCH (20:42)
[2020-07-14] MEDS: PRIMIDONE 250 MG TAB PO SCH (20:42)
[2020-07-14] MEDS: LATANOPROST 0.005% OPHTH DROPS 2.5 ML BTL BOTH EYES SCH (20:43)
[2020-07-15] MEDS: LEVOTHYROXINE 100 MCG TAB PO SCH (05:51)
[2020-07-15] MEDS: PANTOPRAZOLE 40 MG TABLET PO SCH (05:52)
[2020-07-15] MEDS: FENOFIBRATE 160 MG TAB PO SCH (05:52)
[2020-07-15] MEDS ORDERED: REGADENOSON 0.4 MG/5 ML SYRINGE IV PRN (06:00)
[2020-07-15] MEDS ORDERED: AMINOPHYLLINE 500 MG/20 ML VIAL IV PRN (06:00)
[2020-07-15] MEDS ORDERED: CAFFEINE CITRATE 60 MG/3 ML VIAL IV PRN (06:00)
[2020-07-15] MEDS: BACLOFEN 10 MG TAB PO PRN ×2 (07:44→23:16)
[2020-07-15] MEDS: HYDROcodone/APAP 5-325MG 1 EACH TAB PO PRN (07:44)
[2020-07-15] MEDS: IPRATROPIUM-ALBUTEROL 3 ML NEB INHALATION SCH ×3 (08:07→20:17)
[2020-07-15] MEDS: SYMBICORT 160-4.5 MCG INHALER INHALATION SCH ×2 (08:07→20:17)
[2020-07-15] MEDS: INSULIN ASPART (NovoLOG) 100 UNIT/ML VIAL SQ SCH ×3 (08:36→17:31)
--- NOTE | 2020-07-15 09:04 | P.PN ---
Subjective Progress Note Date: 07/15/20 HISTORY OF PRESENT ILLNESS: This is a 70-year-old female who I follow at [facility] with a previous medical history significant for hypertension and hypertensive cardio vascular disease, hyperlipidemia, diabetes mellitus type 2 with diabetic polyneuropathy, hypothyroidism, CAD post PCI and stent placement, essential tremor, restless leg syndrome, bipolar disorder, recurrent DVT, peripheral arterial occlusive disease, with a recent blister formation to the left kirk was investigated as an outpatient and she had an arterial Doppler of the left lower extremity that did show evidence of moderate to severe PAD, and she was scheduled for CT angiography of the left lower extremity for further evaluation vascular surgery consultation, along with MRI of the left lower extremity to rule out any osteomyelitis of the kirk bone. Patient was recently hospitalized and discharged back to medical [place] on June 30 after she was treated for acute hypercapnic respiratory failure secondary to CO2 narcosis, exacerbation of COPD and obstructive sleep apnea and obesity hypoventilation syndrome. Patient was also treated for acute kidney injury secondary to acute tubular necrosis. Metabolic encephalopathy had improved during her hospitalization. She was also seen by vascular surgery with plan for outpatient CT angiogram via of the left lower extremity. Her echocardiogram on that hospitalization revealed EF of 45- 50% with severe concentric left ventricular hypertrophy, mild tricuspid regurgitation, borderline pulmonary artery hypertension. Patient was again admitted on July 11 to [facility] due to altered mental status and was diagnosed with toxic encephalopathy and acute urinary tract infection. A-Team was called that evening due to mental status changes patient was diagnosed with acute on chronic hypoxic respiratory failure and altered mentation. Leetsdale and Lyrica were initially stopped but Leetsdale has been resumed since that episode. Patient is seen today on the cardiac stepdown unit. She developed tachycardia and a cardiology consult was added and she was started on Cardizem drip. Patient also relates that she had an episode of chest pain last evening thought it was related to her "nerves". She states that she also had some nausea. Chest pain was in the midsternal area and nonradiating. Regarding her CPAP, patient is using the hospital device which she states is hard for her to tolerate. Patient's daughter is at bedside and has been updated. Patient denies having any fevers. Left lower extremity wound is improving. Urine culture is positive for Enterobacter cloacae An[facility] the next probable 48 hours. 07/15: She has been seen by cardiology and is scheduled for Lexiscan stress test today. Patient has been afebrile, heart rate 66, blood pressure 120/68, pulse ox 96% on 5 L nasal cannula. Repeat blood work reveals normal electrolytes. BUN 25 creatinine 1.09. Blood sugars are running between 148 and 227. TSH 51.8 and free T4 0.73 and levothyroxine will be increased to 225 g daily. REVIEW OF SYSTEMS: Constitutional: No documented fever, no chills, no night sweats. No weight change. Denies weakness, denies fatigue and lethargy. HEENT: No headache. No blurred vision or double vision, no loss of vision. No loss of Hearing, no ringing in the ears, no dizziness. No nasal drainage or congestion. No epistaxis. No sore throat. Lungs: No shortness of breath at rest, patient is at baseline, no cough, no sputum production. No wheezing. Reports dyspnea with activity. Cardiovascular: Intermittent chest pain, positive for left lower extremity ed yuri. No palpitations. No paroxysmal nocturnal dyspnea. No orthopnea. No lightheadedness or dizziness. No syncopal episodes. Abdominal: Reports no abdominal pain. No nausea, vomiting. No diarrhea. No constipation. No bloody or tarry stools reports loss of appetite. Genitourinary: No dysuria, increased frequency, urgency. No urinary retention. Musculoskeletal: positive for myalgias. No muscle weakness, positive for gait dysfunction, positive for frequent falls, positive for left leg pain Integumentary: left kirk wound, no lesions. No rash or pruritus. No unusual bruising. No change in hair or nails. Neurologic: No aphasia. No facial droop. No mental status change. No head inju ry. No headache. No paralysis, positive for parasthesia in the left leg Psychiatric: Positive for anxiety and depression. Endocrine: hyperglycemia. PHYSICAL EXAMINATION: General: 70-year-old who is resting in bariatric bed and appears to be comfortable and in no acute distress. Patient's daughter is at bedside. HEENT: Head is atraumatic, normocephalic, pupils were equal round reactive to light and recommendation, extraocular muscle movement were intact, sclera nonict [place], mucous membranes of the mouth are moist. Neck: Supple, no JVP, decreased carotid upstroke bilaterally, no lymphadenopathy. Chest: Decreased breath sounds at the bases, few rhonchi, minimal expiratory wheezes, no chest wall tenderness, no intercostal retractions. Heart: First heart sound is normal, second heart sounds normal, there is systolic ejection murmur 2/6 located in the left sternal border. Abdomen: Soft, nontender, nondistended, positive bowel sounds. External female catheter in place. Extremities: There is right [id number] amputation, left lower extremity with chronic skin changes with the denuded blisters of the left kirk, dorsalis pedis 12 plus on the left. Neurologic examination: Patient is awake alert and oriented X3, cranial nerves II-12 appear grossly intact, muscle power were 5 out of 5 in upper extremities and 3 out of 5 in the left lower extremity, deep tendon reflexes were depressed. ASSESSMENT AND PLAN: 1. Toxic or septic metabolic encephalopathy possibly related to medications and urinary tract infection, resolved 2. Acute Enterobacter urinary tract infection. Antibiotics will be changed to doxycycline. 3. Chest pain with elevated troponins. Consult with cardiology. Continue aspirin 81 mg daily, Lipitor 40 mg daily. Lexiscan stress test ordered for today. 4. Sinus tachycardia. Cardiology consult. Patient is on a Cardizem drip. Toprol-XL increased to 100 mg twice daily. 5. Acute hypercarbic and hypoxic respiratory failure due to CO2 narcosis, obstructive sleep apnea with obesity hypoventilation syndrome and possible medication effects with Lyrica and Leetsdale. Breathing status is currently stable, wean oxygen down to patient's baseline, continue DuoNeb treatments 3 times daily, Symbicort 2 puffs twice daily. Continue BiPAP as patient will tolerate. 6. Acute kidney injury secondary to acute tubular necrosis. Improved and back to baseline. 7. Hypertension and hypertensive cardiovascular disease. Continue amlodipine 10 mg daily, Lasix 40 mg daily, Toprol-XL was increased during this hospitalization to 100 mg twice daily. 8. Hyperlipidemia. Continue low-cholesterol diet and atorvastatin 40 mg orally once every day, discontinue gemfibrozil. 9. Diabetes mellitus type 2 insulin requiring. Resume Lantus 96 units at bedtime along with the Humalog 13 units before each meal along with a sliding scale insulin, continue Januvia 50 mg orally once every day. 10. Diabetic polyneuropathy. Lyrica was discontinued due to mental status changes. 11. Obesity with obstructive sleep apnea and obesity hypoventilation syndrome continue with current BiPAP. 12. 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 Continue current pain management. Leetsdale was decreased to 5/325 mg 1 every 8 hours as needed, continue baclofen 10 mg orally 2 times every day. 13. Bipolar disorder. Continue Lexapro 20 mg orally once every day, continue Seroquel 300 mg at bedtime. 14. Severe PAD status post a recent arterial Doppler of the left lower extremity that document and moderate to severe disease. Patient has a follow-up appointment scheduled with Dr. Wagoner on July 16. She had recent angiogram done at [facility] on July 08. 15. Left kirk denuded ulcer with recurrent cellulitis of the left lower extremity with element of venous stasis with venous ulceration 16. Hypothyroidism. Continue patient on Synthroid 100 MCG orally once every day. 17. Restless leg syndrome. Continue Requip 0.5 mg at bedtime. 18. Essential tremor. Continue Primidone 250 mg at bedtime. 19. Vitamin D deficiency. Patient has been on vitamin D 50,000 units once every weekel. 20. GERD. Continue Protonix 40 mg once every day. 21. Glaucoma. Continue Xalatan 1 drop in both eyes at bedtime. 22. Recurrent DVT. Continue Xarelto 20 mg orally once every day. 23. GI prophylaxis. Continue PPI. 24. DVT prophylaxis. Continue Xarelto 15 mg once every day. 25. History of CAD with cardiac arrest status post left heart catheterization with PCI. Patient is full code. DISCHARGE PLAN Return to [facility] Impression and plan of care have been directed as dictated by the signing physician. Kemi Rodriguez nurse practitioner acting as scribe for signing physician. Objective - Vital Signs Vital signs: Vital Signs Temp 97.5 F L 07/14/20 20:00 Pulse 66 07/15/20 03:44 Resp 18 07/15/20 03:44 BP 128/68 07/15/20 03:44 Pulse Ox 96 07/15/20 03:44 Intake & Output 07/14/20 07/14/20 07/15/20 06:59 18:59 06:59 Intake Total 618.167 900 Output Total 400 50 100 Balance 218.167 850 -100 Weight 137.5 kg 170.4 kg Intake: Intake, IV Titration 78.167 Amount Diltiazem 125 mg In 78.167 Sodium Chloride 0.9% 100 ml @ 10 MG/HR 10 mls/hr IV .[id number] [facility] Rx#: [id number] Oral 540 900 Output: Urine 400 50 100 Other: Voiding Method External Catheter External Catheter External Catheter # Voids 2 # Bowel Movements 1 - Labs CBC & Chem 7: 07/13/20 00:36 07/14/20 10:22 Labs: Abnormal Lab Results - Last 24 Hours (Table) 07/14/20 07/14/20 07/14/20 Range/Units 06:52 10:22 11:51 BUN 25 H (7-17) mg/dL Creatinine 1.09 H (0.52-1.04) mg/dL Glucose 164 H (74-99) mg/dL POC Glucose (mg/dL) 162 H 148 H (75-99) mg/dL TSH 51.800 H (0.465-4.680) mIU/L Free T4 0.73 L (0.78-2.19) ng/dL 07/14/20 07/14/20 Range/Units 16:54 20:24 BUN (7-17) mg/dL Creatinine (0.52-1.04) mg/dL Glucose (74-99) mg/dL POC Glucose (mg/dL) 136 H 227 H (75-99) mg/dL TSH (0.465-4.680) mIU/L Free T4 (0.78-2.19) ng/dL Microbiology - Last 24 Hours (Table) 07/10/20 17:45 Blood Culture - Preliminary Blood No Growth after 96 hours 07/10/20 18:00 Blood Culture - Preliminary Blood No Growth after 96 hours
[2020-07-15] MEDS: FUROSEMIDE 40 MG TAB PO SCH (12:14)
[2020-07-15] MEDS: ESCITALOPRAM 20 MG TAB PO SCH (12:14)
[2020-07-15] MEDS: TAMSULOSIN 0.4 MG CAP.ER.24H PO SCH ×2 (12:14→21:14)
[2020-07-15] MEDS: METOPROLOL SUCCINATE (ER) 100 MG TAB.ER.24H PO SCH ×2 (12:14→21:14)
[2020-07-15] MEDS: HYDROcodone/APAP 7.5-325MG 1 EACH TAB PO PRN ×2 (12:14→18:37)
[2020-07-15] MEDS: ASPIRIN 81 MG PO SCH (12:14)
[2020-07-15] MEDS: amLODIPine 10 MG TAB PO SCH (12:14)
[2020-07-15] MEDS: DOXYCYCLINE 100 MG CAP PO SCH ×2 (12:15→21:15)
[2020-07-15] MEDS: TRIAMCINOLONE 0.1% CREAM 80 GM TUBE TOPICAL SCH ×2 (12:15→21:15)
[2020-07-15] MEDS: LINAGLIPTIN 5 MG TABLET PO SCH (12:15)
[2020-07-15 12:33] LABS: Glucose,Whole Blood 164 mg/dL (75-99)
--- NOTE | 2020-07-15 13:13 | NM ---
EXAMINATION TYPE: NM stress lexiscan cardiolite DATE OF EXAM: 07/15/2020 COMPARISON: NONE HISTORY: Chest pain TECHNIQUE: After the intravenous administration of 9.7 mCi Tc 99m Sestamibi - Cardiolite resting SPE CT images acquired 75 minutes post injection. At peak stress 26.1 mCi Tc 99m Sestamibi - Stress images obtained 45 minutes post injection The patient was stressed with 0.4mg Lexiscan. FINDINGS: There is a defect along the inferior wall on the resting images. On stress this area is larger compat ible some hema-infarct stress-induced ischemic change There is hypokinesia along the inferior wall. Some dyskinesia along the distal anterior wall apex. Ejection fraction is calculated to be 43 %. IMPRESSION: 1. Prior infarct along the inferior wall. Stress-induced hema-infarct ischemic changes are readily ap parent. A Red level critical message alert has been initiated for Damian Silva MD via the [employer] on 07/15/2020 1:11 PM. This message alert has been sent to Damian Silva MD via [employer] e preferences provided by the clinician for the receipt of Radiology Critical Findings. Message ID [id number].
[2020-07-15] MEDS ORDERED: NITROGLYCERIN SL TABS 0.4 MG TAB SUBLINGUAL PRN (13:56)
[2020-07-15] MEDS ORDERED: ALPRAZolam 0.5 MG TAB PO PRN (13:56)
[2020-07-15] MEDS ORDERED: ALPRAZolam 0.25 MG TAB PO PRN (13:56)
[2020-07-15] MEDS: RIVAROXABAN 20 MG TAB PO SCH (14:07)
--- NOTE | 2020-07-15 14:13 | EST ---
EXERCISE STRESS DATE OF SERVICE: 07/15/20 AGE: 69 SEX: F HT: 5'2" WT: 375 lbs. PROTOCOL: Lexiscan STAGE: N/A DURATION OF EXERCISE: 5 minutes HEART RATE REST: 63 BLOOD PRESSURE REST: 110/72 MAXIMUM HEART RATE ACHIEVED: 78 MAXIMUM BLOOD PRESSURE: 142/67 85% MPHR: 130 100% MPHR: 153 METS: N/A INDICATIONS: Chest pain. STRESS DATA: Heart rate 63, pressure is 110/72 mmHg. Baseline EKG showed ectopic atrial rhythm. 0.4 mg of Lexiscan given over 15 seconds per protocol. Max heart rate was 78 beats per minute and maximum pressure was 110/72 mmHg. Clinically, the patient did not have any symptoms and the EKG did not show any significant ST or T-wave abnormalities concerning for ischemia. CONCLUSION: 1. Nondiagnostic electrocardiogram stress testing in response to Lexiscan. 2. Please follow up on the Cardiolite portion on a separate report from Radiology Department. MMODL / IJN: [id number] /
[2020-07-15] MEDS ORDERED: HEPARIN SODIUM 1,000 UN/ML (10ML VL) IV PRN (16:12)
[2020-07-15] MEDS ORDERED: HEPARIN SODIUM 1,000 UN/ML (10ML VL) IV ONE (16:12)
--- NOTE | 2020-07-15 16:12 | P.PN ---
Subjective HISTORY OF PRESENT ILLNESS: This is a 69-year-old female with a past medical history significant for coronary artery disease with previous PCI to the RCA, diabetes mellitus, COPD on home oxygen, hypertension, hyperlipidemia, DVT on anticoagulation with Xarelto, and right BKA. Patient has not been seen in the office since 2011. We have been asked to see the patient in consultation for chest pain. Patient examined at the bedside. Patient is admitted to the hospital secondary to altered mental status and urinary tract infection. Patient states yesterday while she was sitting in bed relaxing she began having chest pain. She states the pain was in the middle of her chest and did not radiate. She denied having any shortness of breath. She denied nausea or vomiting. Denies diaphoresis. He was also found to be tachycardic yesterday and was started on a Cardizem drip. This is still infusing at 10 mg an hour. Telemetry reveals sinus mechanism with a heart rate in the 70s. 07/15 Patient seen and examined. Patient underwent stress test today which showed some fixed inferior ischemia with hema-infarct ischemia. REVIEW OF SYSTEMS: At the time of my exam: CONSTITUTIONAL: Denies fever or chills. HEENT: Denies blurred vision, vision changes, or eye pain. Denies hemoptysis CARDIOVASCULAR: Denies chest pain. Denies orthopnea. Denies PND. Denies palpitations RESPIRATORY: Denies shortness of breath. GASTROINTESTINAL: Denies abdominal pain. Denies nausea or vomiting. HEMATOLOGIC: Denies bleeding disorders. GENITOURINARY: Denies any blood in urine. SKIN: Denies pruitis. Denies rash. PHYSICAL EXAM: VITAL SIGNS: Reviewed. GENERAL: Well-developed in no acute distress. HEENT: Head is normocephalic. Pupils are equal, round. Sclerae anicteric. Mucous membranes of the mouth are moist. Neck supple. No JVD or thyromegaly LUNGS: Respirations even and unlabored. Lungs diminished bilaterally. HEART: Regular rate and rhythm. S1 and S2 heard. ABDOMEN: Soft. Nondistended. Nontender. EXTREMITIES: Normal range of motion. No clubbing or cyanosis. Peripheral pulses intact. No lower extremity edema. Right BKA. NEUROLOGIC: Awake and alert. Oriented x 3. 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 NPO after midnight. Further recommendations pending. Objective - Vital Signs Vital signs: Vital Signs Temp 97.9 F 07/15/20 07:36 Pulse 71 07/15/20 14:57 Resp 16 07/15/20 14:57 BP 117/53 07/15/20 14:57 Pulse Ox 93 L 07/15/20 14:57 Intake & Output 07/14/20 07/15/20 07/15/20 18:59 06:59 18:59 Intake Total 900 Output Total 50 100 400 Balance 850 -100 -400 Weight 170.4 kg 170.4 kg Intake: Oral 900 Output: Urine 50 100 400 Other: Voiding Method External Catheter External Catheter External Catheter # Voids 2 # Bowel Movements 1 - Labs CBC & Chem 7: 07/13/20 00:36 07/14/20 10:22 Labs: Abnormal Lab Results - Last 24 Hours (Table) 07/14/20 07/14/20 07/15/20 Range/Units 16:54 20:24 12:31 POC Glucose (mg/dL) 136 H 227 H 164 H (75-99) mg/dL Microbiology - Last 24 Hours (Table) 07/10/20 17:45 Blood Culture - Preliminary Blood No Growth after 96 hours 07/10/20 18:00 Blood Culture - Preliminary Blood No Growth after 96 hours
[2020-07-15 16:59] LABS: Glucose,Whole Blood 143 mg/dL (75-99)
[2020-07-15 17:38] LABS: Basophils # (A) 0.1 k/uL (0-0.2); Basophils % (A) 1 %; Eosinophils # (A) 0.4 k/uL (0-0.7); Eosinophils % (A) 4 %; HCT 42.8 % (34.0-46.0); HGB 13.5 gm/dL (11.4-16.0); Hypochromasia Slight; Lymphocytes % (A) 34 %; MCH 31.8 pg (25.0-35.0); MCHC 31.6 g/dL (31.0-37.0); MCV 100.8 fL (80.0-100.0); Macrocytosis Slight; Mean Platelet Volume 10.2; Monocytes # (A) 0.7 k/uL (0-1.0); Monocytes % (A) 8 %; Neutrophils # (A) 4.4 k/uL (1.3-7.7); Neutrophils % (A) 50 %; Platelet Count 252 k/uL (150-450); RBC 4.25 m/uL (3.80-5.40); RDW 15.7 % (11.5-15.5); WBC 8.7 k/uL (3.8-10.6)
[2020-07-15 17:47] LABS: INR 1.1 (<1.2); Partial Thromboplastin Time 25.2 sec (22.0-30.0); Prothrombin Time 11.6 sec (9.0-12.0)
[2020-07-15] MEDS: HEPARIN SOD,PORK IN 0.45% NACL 25,000 UNIT in 0.45% NACL 1 250ML.BAG IV SCH (18:37)
[2020-07-15 20:13] LABS: Glucose,Whole Blood 151 mg/dL (75-99)
[2020-07-15] MEDS: QUEtiapine 100 MG TAB PO SCH (21:14)
[2020-07-15] MEDS: ATORVASTATIN 40 MG TAB PO SCH (21:14)
[2020-07-15] MEDS: PRIMIDONE 250 MG TAB PO SCH (21:15)
[2020-07-15] MEDS: INSULIN DETEMIR (LEVEMIR) 100 UNIT/ML SYR SQ SCH (21:15)
[2020-07-15] MEDS: LATANOPROST 0.005% OPHTH DROPS 2.5 ML BTL BOTH EYES SCH (21:15)
[2020-07-15] MEDS: SODIUM CHLORIDE 0.9% 1,000 ML in EMPTY BAG 1 BAG IV ONE (23:16)
[2020-07-15] MEDS: ONDANSETRON 4 MG/2 ML VIAL IVP PRN (23:33)
[2020-07-16] MEDS: HYDROcodone/APAP 7.5-325MG 1 EACH TAB PO PRN ×2 (01:12→12:59)
[2020-07-16 04:52] LABS: Basophils # (A) 0.1 k/uL (0-0.2); Basophils % (A) 1 %; Eosinophils # (A) 0.5 k/uL (0-0.7); Eosinophils % (A) 7 %; HCT 40.8 % (34.0-46.0); HGB 13.3 gm/dL (11.4-16.0); Lymphocytes # (A) 3.4 k/uL (1.0-4.8); Lymphocytes % (A) 45 %; MCH 32.6 pg (25.0-35.0); MCHC 32.6 g/dL (31.0-37.0); MCV 99.8 fL (80.0-100.0); Macrocytosis Slight; Mean Platelet Volume 10.7; Monocytes # (A) 0.5 k/uL (0-1.0); Monocytes % (A) 6 %; Neutrophils # (A) 2.9 k/uL (1.3-7.7); Neutrophils % (A) 39 %; Platelet Count 270 k/uL (150-450); RBC 4.09 m/uL (3.80-5.40); RDW 15.3 % (11.5-15.5); WBC 7.6 k/uL (3.8-10.6)
[2020-07-16] MEDS ORDERED: LEVOTHYROXINE 112 MCG TAB PO SCH (05:00)
[2020-07-16 05:09] LABS: INR 1.1 (<1.2); Prothrombin Time 11.7 sec (9.0-12.0)
[2020-07-16 05:10] LABS: Partial Thromboplastin Time 28.8 sec (22.0-30.0)
[2020-07-16 06:11] LABS: Glucose,Whole Blood 95 mg/dL (75-99)
[2020-07-16] MEDS: METOPROLOL SUCCINATE (ER) 100 MG TAB.ER.24H PO SCH (06:13)
[2020-07-16] MEDS: ESCITALOPRAM 20 MG TAB PO SCH (06:13)
[2020-07-16] MEDS: DOXYCYCLINE 100 MG CAP PO SCH (06:13)
[2020-07-16] MEDS: FENOFIBRATE 160 MG TAB PO SCH (06:13)
[2020-07-16] MEDS: PANTOPRAZOLE 40 MG TABLET PO SCH (06:14)
[2020-07-16] MEDS: amLODIPine 10 MG TAB PO SCH (06:14)
[2020-07-16] MEDS ORDERED: HEPARIN SODIUM,PORCINE 10,000 UNIT in SODIUM CHLORIDE 0.9% 1,000 ML IRRIGATION PRN (07:00)
[2020-07-16] MEDS ORDERED: ASPIRIN 325 MG TAB PO ONE (07:00)
[2020-07-16] MEDS ORDERED: HEPARIN SODIUM,PORCINE 2,500 UNIT in SODIUM CHLORIDE 0.9% 250 ML IRRIGATION PRN (07:00)
[2020-07-16] MEDS ORDERED: ATORVASTATIN 80 MG TAB PO ONE (07:00)
[2020-07-16] MEDS: IPRATROPIUM-ALBUTEROL 3 ML NEB INHALATION SCH ×3 (07:55→17:17)
[2020-07-16] MEDS: SYMBICORT 160-4.5 MCG INHALER INHALATION SCH (07:55)
[2020-07-16] MEDS: SODIUM CHLORIDE 0.9% 1,000 ML in EMPTY BAG 1 BAG IV ONE (09:02)
[2020-07-16] MEDS: TRIAMCINOLONE 0.1% CREAM 80 GM TUBE TOPICAL SCH (09:03)
[2020-07-16] MEDS: INSULIN ASPART (NovoLOG) 100 UNIT/ML VIAL SQ SCH ×3 (09:03→17:19)
[2020-07-16] MEDS: ASPIRIN 81 MG PO SCH (09:03)
[2020-07-16] MEDS ORDERED: VERAPAMIL 2.5 MG/ML 2 ML AMP ONE (10:15)
[2020-07-16] MEDS ORDERED: LIDOCAINE 1% INJ 10MG/ML (20 ML MDV) ONE (10:15)
[2020-07-16] MEDS ORDERED: IV FLUID CONTINUATION 1,000 ML IV ONE (10:45)
[2020-07-16] MEDS ORDERED: fentaNYL (PF) 50 MCG/ML 2 ML AMP ONE (10:59)
[2020-07-16] MEDS ORDERED: MIDAZOLAM 2 MG/2 ML VIAL IV ONE (11:00)
[2020-07-16] MEDS ORDERED: fentaNYL (PF) 50 MCG/ML 2 ML AMP IV ONE (11:00)
[2020-07-16] MEDS ORDERED: LIDOCAINE 1% INJ 10MG/ML (20 ML MDV) SQ ONE (11:00)
[2020-07-16] MEDS ORDERED: VERAPAMIL SYRINGE (5 MG/10 ML) INTRAARTER ONE (11:01)
[2020-07-16] MEDS ORDERED: HEPARIN SODIUM 1,000 UN/ML (10ML VL) ONE (11:02)
[2020-07-16] MEDS ORDERED: HEPARIN SODIUM 1,000 UN/ML (10ML VL) IV ONE (11:03)
[2020-07-16] MEDS ORDERED: IOPAMIDOL-370 125ML BTL INJ ONE (11:22)
[2020-07-16] MEDS ORDERED: RX INFO: IV CONTRAST WAS GIVEN 1 EACH MISC MISCELLANE PRN ×2 (11:31→11:34)
[2020-07-16 12:03] LABS: Glucose,Whole Blood 92 mg/dL (75-99)
--- NOTE | 2020-07-16 12:27 | P.PN ---
Subjective Progress Note Date: 07/16/20 HISTORY OF PRESENT ILLNESS: This is a 70-year-old female who I follow at [facility] with a previous medical history significant for hypertension and hypertensive cardio vascular disease, hyperlipidemia, diabetes mellitus type 2 with diabetic polyneuropathy, hypothyroidism, CAD post PCI and stent placement, essential tremor, restless leg syndrome, bipolar disorder, recurrent DVT, peripheral arterial occlusive disease, with a recent blister formation to the left kirk was investigated as an outpatient and she had an arterial Doppler of the left lower extremity that did show evidence of moderate to severe PAD, and she was scheduled for CT angiography of the left lower extremity for further evaluation vascular surgery consultation, along with MRI of the left lower extremity to rule out any osteomyelitis of the kirk bone. Patient was recently hospitalized and discharged back to [facility] on June 30 after she was treated for acute hypercapnic respiratory failure secondary to CO2 narcosis, exacerbation of COPD and obstructive sleep apnea and obesity hypoventilation syndrome. Patient was also treated for acute kidney injury secondary to acute tubular necrosis. Metabolic encephalopathy had improved during her hospitalization. She was also seen by vascular surgery with plan for outpatient CT angiogram via of the left lower extremity. Her echocardiogram on that hospitalization revealed EF of 45- 50% with severe concentric left ventricular hypertrophy, mild tricuspid regurgitation, borderline pulmonary artery hypertension. Patient was again admitted on July 11 to [facility] due to altered mental status and was diagnosed with toxic encephalopathy and acute urinary tract infection. A-Team was called that evening due to mental status changes patient was diagnosed with acute on chronic hypoxic respiratory failure and altered mentation. Gardena and Lyrica were initially stopped but Gardena has been resumed since that episode. Patient is seen today on the cardiac stepdown unit. She developed tachycardia and a cardiology consult was added and she was started on Cardizem drip. Patient also relates that she had an episode of chest pain last evening thought it was related to her "nerves". She states that she also had some nausea. Chest pain was in the midsternal area and nonradiating. Regarding her CPAP, patient is using the hospital device which she states is hard for her to tolerate. Patient's daughter is at bedside and has been updated. Patient denies having any fevers. Left lower extremity wound is improving. Urine culture is positive for Enterobacter cloacae Anticipate discharge back to [facility] in the next probable 48 hours. 07/15: She has been seen by cardiology and is scheduled for Lexiscan stress test today. Patient has been afebrile, heart rate 66, blood pressure 120/68, pulse ox 96% on 5 L nasal cannula. Repeat blood work reveals normal electrolytes. BUN 25 creatinine 1.09. Blood sugars are running between 148 and 227. TSH 51.8 and free T4 0.73 and levothyroxine will be increased to 225 g daily. 07/16: Patient is seen today sitting up in a recliner. She has no chest pain at this time. Shortness of breath is at baseline. She is currently on nasal cannula O2 at 4 L with pulse ox of 96%. She is afebrile, heart rate 71, blood pressure 161/74. CBC is within normal limits. Blood sugar running between 92 and 151. REVIEW OF SYSTEMS: Constitutional: No documented fever, no chills, no night sweats. No weight change. Denies weakness, denies fatigue and lethargy. HEENT: No headache. No blurred vision or double vision, no loss of vision. No loss of Hearing, no ringing in the ears, no dizziness. No nasal drainage or congestion. No epistaxis. No sore throat. Lungs: No shortness of breath at rest, patient is at baseline, no cough, no sputum production. No wheezing. Reports dyspnea with activity. Cardiovascular: Intermittent chest pain, positive for left lower extremity edema. No palpitations. No paroxysmal nocturnal dyspnea. No orthopnea. No lightheadedness or dizziness. No syncopal episodes. Abdominal: Reports no abdominal pain. No nausea, vomiting. No diarrhea. No constipation. No bloody or tarry stools reports loss of appetite. Genitourinary: No dysuria, increased frequency, urgency. No urinary retention. Musculoskeletal: positive for myalgias. No muscle weakness, positive for gait dysfunction, positive for frequent falls, positive for left leg pain Integumentary: left kirk wound, no lesions. No rash or pruritus. No unusual bruising. No change in hair or nails. Neurologic: No aphasia. No facial droop. No mental status change. No head injury. No headache. No paralysis, positive for parasthesia in the left leg Psychiatric: Positive for anxiety and depression. Endocrine: hyperglycemia. PHYSICAL EXAMINATION: General: 70-year-old who is resting in bariatric bed and appears to be comfortable and in no acute distress. Patient's daughter is at bedside. HEENT: Head is atraumatic, normocephalic, pupils were equal round reactive to light and recommendation, extraocular muscle movement were intact, sclera nonicteric, mucous membranes of the mouth are moist. Neck: Supple, no JVP, decreased carotid upstroke bilaterally, no lymphadenopathy. Chest: Decreased breath sounds at the bases, few rhonchi, minimal expiratory wheezes, no chest wall tenderness, no intercostal retractions. Heart: First heart sound is normal, second heart sounds normal, there is systolic ejection murmur 2/6 located in the left sternal border. Abdomen: Soft, nontender, nondistended, positive bowel sounds. External female catheter in place. Extremities: There is right [id number] amputation, left lower extremity with chronic skin changes with the denuded blisters of the left kirk, dorsalis pedis 12 plus on the left. Neurologic examination: Patient is awake alert and oriented X3, cranial nerves II-12 appear grossly intact, muscle power were 5 out of 5 in upper extremities and 3 out of 5 in the left lower extremity, deep tendon reflexes were depressed. ASSESSMENT AND PLAN: 1. Toxic or septic metabolic encephalopathy possibly related to medications and urinary tract infection, resolved 2. Acute Enterobacter urinary tract infection. Antibiotics will be changed to doxycycline. 3. Chest pain with elevated troponins. Consult with cardiology. Continue aspirin 81 mg daily, Lipitor 40 mg daily. Heart catheterization for today. 4. Sinus tachycardia. Cardiology consult. Patient is on a Cardizem drip. Toprol-XL increased to 100 mg twice daily. 5. Acute hypercarbic and hypoxic respiratory failure due to CO2 narcosis, obstructive sleep apnea with obesity hypoventilation syndrome and possible medication effects with Lyrica and Gardena. Breathing status is currently stable, wean oxygen down to patient's baseline, continue DuoNeb treatments 3 times daily, Symbicort 2 puffs twice daily. Continue BiPAP as patient will tolerate. 6. Acute kidney injury secondary to acute tubular necrosis. Improved and back to baseline. 7. Hypertension and hypertensive cardiovascular disease. Continue amlodipine 10 mg daily, Lasix 40 mg daily, Toprol-XL was increased during this hospitalization to 100 mg twice daily. 8. Hyperlipidemia. Continue low-cholesterol diet and atorvastatin 40 mg orally once every day, discontinue gemfibrozil. 9. Diabetes mellitus type 2 insulin requiring. Resume Lantus 96 units at bedtime along with the Humalog 13 units before each meal along with a sliding scale insulin, continue Januvia 50 mg orally once every day. 10. Diabetic polyneuropathy. Lyrica was discontinued due to mental status changes. 11. Obesity with obstructive sleep apnea and obesity hypoventilation syndrome continue with current BiPAP. 12. 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 Continue current pain management. Gardena was decreased to 5/325 mg 1 every 8 hours as needed, continue baclofen 10 mg orally 2 times every day. 13. Bipolar disorder. Continue Lexapro 20 mg orally once every day, continue Seroquel 300 mg at bedtime. 14. Severe PAD status post a recent arterial Doppler of the left lower extre mity that document and moderate to severe disease. Patient has a follow-up appointment scheduled with Dr. Wagoner on July 16. She had recent angiogram done at [facility] on July 08. 15. Left kirk denuded ulcer with recurrent cellulitis of the left lower extremity with element of venous stasis with venous ulceration 16. Hypothyroidism. Continue patient on Synthroid 100 MCG orally once every day. 17. Restless leg syndrome. Continue Requip 0.5 mg at bedtime. 18. Essential tremor. Continue Primidone 250 mg at bedtime. 19. Vitamin D deficiency. Patient has been on vitamin D 50,000 units once every weekel. 20. GERD. Continue Protonix 40 mg once every day. 21. Glaucoma. Continue Xalatan 1 drop in both eyes at bedtime. 22. Recurrent DVT. Continue Xarelto 20 mg orally once every day. 23. GI prophylaxis. Continue PPI. 24. DVT prophylaxis. Continue Xarelto 15 mg once every day. 25. History of CAD with cardiac arrest status post left heart catheterization with PCI. Patient is full code. DISCHARGE PLAN Return to [facility] Imp[facility] and plan of care have been directed as dictated by the signing physician. Kemi Rodriguez nurse practitioner acting as scribe for signing physician. Objective - Vital Signs Vital signs: Vital Signs Temp 97.9 F 07/16/20 04:00 Pulse 71 07/16/20 04:00 Resp 18 07/16/20 04:00 BP 161/74 07/16/20 04:00 Pulse Ox 96 07/16/20 04:00 Intake & Output 07/15/20 07/16/20 07/16/20 18:59 06:59 18:59 Intake Total 240 105.823 Output Total 400 600 Balance -160 -494.177 Weight 170.4 kg 164.229 kg Intake: Intake, IV Titration 105.823 Amount Heparin Sod,Pork in 0.45% 105.823 NaCl 25,000 unit In 0.45 % NaCl 1 250ml.bag @ 5. 868 UNITS/KG/HR 9.999 mls /hr IV .Q24H [facility] Rx#: [id number] Oral 240 Output: Urine 400 600 Other: Voiding Method External Catheter External Catheter - Labs CBC & Chem 7: 07/16/20 03:22 07/14/20 10:22 Labs: Abnormal Lab Results - Last 24 Hours (Table) 07/15/20 07/15/20 07/15/20 Range/Units 12:31 16:51 16:58 MCV 100.8 H (80.0-100.0) fL RDW 15.7 H (11.5-15.5) % POC Glucose (mg/dL) 164 H 143 H (75-99) mg/dL 07/15/20 Range/Units 20:11 MCV (80.0-100.0) fL RDW (11.5-15.5) % POC Glucose (mg/dL) 151 H (75-99) mg/dL Microbiology - Last 24 Hours (Table) 07/10/20 17:45 Blood Culture - Preliminary Blood No Growth after 120 hours 07/10/20 18:00 Blood Culture - Preliminary Blood No Growth after 120 hours
[2020-07-16 12:49] VITALS: RESP 18; TEMP 97.5
--- NOTE | 2020-07-16 12:52 | P.DS ---
Providers Date of admission: 07/11/20 11:36 Expected date of discharge: 07/16/20 Attending physician: Damian Silva Consults: 07/13/20 13:07 Consult Physician Routine Consulting Provider: Norris Wahl Consult Reason/Comments: chest pain, elevated trop 0.051 Do you want consulting provider notified?: Yes Primary care physician: Damian Silva [place] [facility] Course: HISTORY OF PRESENT ILLNESS: This is a 70-year-old female who I follow at [facility] with a previous medical history significant for hypertension and hypertensive cardiovascular disease, hyperlipidemia, diabetes mellitus type 2 with diabetic polyneuropathy, hypothyroidism, CAD post PCI and stent placement, essential tremor, restless leg syndrome, bipolar disorder, recurrent DVT, peripheral arterial occlusive disease, with a recent blister formation to the left kirk was investigated as an outpatient and she had an arterial Doppler of the left lower extremity that did show evidence of moderate to severe PAD, and she was scheduled for CT angiography of the left lower extremity for further evaluation vascular surgery consultation, along with MRI of the left lower extremity to ru le out any osteomyelitis of the kirk bone. Patient was recently hospitalized and discharged back to [facility] on June 30 after she was treated for acute hypercapnic respiratory failure secondary to CO2 narcosis, exacerbation of COPD and obstructive sleep apnea and obesity hypoventilation syndrome. Patient was also treated for acute kidney injury secondary to acute tubular necrosis. Metabolic encephalopathy had improved during her hospitalization. She was also seen by vascular surgery with plan for outpatient CT angiogram via of the left lower extremity. Her echocardiogram on that hospitalization revealed EF of 45- 50% with severe concentric left ventricular hypertrophy, mild tricuspid regurgitation, borderline pulmonary artery hypertension. Patient was again admitted on July 11 to [facility] due to altered mental status and was diagnosed with toxic encephalopathy and acute urinary tract infection. A-Team was called that evening due to mental status changes patient was diagnosed with acute on chronic hypoxic respiratory failure and altered mentation. Hernshaw and Lyrica were initially stopped but Hernshaw has been resumed since that episode. Patient is seen today on the cardiac stepdown unit. She developed tachycardia and a cardiology consult was added and she was started on Cardizem drip. Patient also relates that she had an episode of chest pain last evening thought it was related to her "nerves". She states that she also had some nausea. Chest pain was in the midsternal area and nonradiating. Regarding her CPAP, patient is using the hospital device which she states is hard for her to tolerate. Patient's daughter is at bedside and has been updated. Patient denies having any fevers. Left lower extremity wound is improving. Urine culture is positive for Enterobacter cloacae Anticipate discharge back to [facility] in the next probable 48 hours. 07/15: She has been seen by cardiology and is scheduled for Lexiscan stress test today. Patient has been afebrile, heart rate 66, blood pressure 120/68, pulse ox 96% on 5 L nasal cannula. Repeat blood work reveals normal electrolytes. BUN 25 creatinine 1.09. Blood sugars are running between 148 and 227. TSH 51.8 and free T4 0.73 and levothyroxine will be increased to 225 g daily. 07/16: Patient is seen today sitting up in a recliner. She has no chest pain at this time. Shortness of breath is at baseline. She is currently on nasal cannula O2 at 4 L with pulse ox of 96%. She is afebrile, heart rate 71, blood pressure 161/74. CBC is within normal limits. Blood sugar running between 92 and 151. Cardiac catheterization revealed CAD with mild disease of the left system, 100% RCA stenosis and robust left to right collaterals. Plan was for aggressive local management. Patient had elevated left-sided filling pressures and would recommend increasing home diuretics. Patient was cleared for discharge by cardiology. Patient will be discharged back to [facility] in stable condition. ASSESSMENT AND PLAN: 1. Toxic or septic metabolic encephalopathy possibly related to medications and urinary tract infection, resolved 2. Acute Enterobacter urinary tract infection. 3. Chest pain with elevated troponins. Status post Heart catheterization without further intervention. 4. Sinus tachycardia. 5. Acute hypercarbic and hypoxic respiratory failure due to CO2 narcosis, obstructive sleep apnea with obesity hypoventilation syndrome and possible medication effects with Lyrica and Hernshaw. 6. Acute kidney injury secondary to acute tubular necrosis. 7. Hypertension and hypertensive cardiovascular disease. 8. Hyperlipidemia. 9. Diabetes mellitus type 2 insulin requiring. 10. Diabetic polyneuropathy. 11. Obesity with obstructive sleep apnea and obesity hypoventilation syndrome continue with current BiPAP. 12. 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 13. Bipolar disorder. 14. Severe PAD status post a recent arterial Doppler of the left lower extremity that document and moderate to severe disease. 15. Left kirk denuded ulcer with recurrent cellulitis of the left lower extremity with element of venous stasis with venous ulceration 16. Hypothyroidism. 17. Restless leg syndrome. 18. Essential tremor. 19. Vitamin D deficiency. 20. GERD. 21. Glaucoma. 22. Recurrent DVT. 23. History of CAD with cardiac arrest status post left heart catheterization with PCI. DISCHARGE PLAN Return to [facility] Impression and plan of care have been directed as dictated by the signing physician. Kemi Rodriguez nurse practitioner acting as scribe for signing physician. Patient Condition at Discharge: Good Plan - Discharge Summary Discharge Rx Participant: No New Discharge Prescriptions: New Nitroglycerin Sl Tabs [Nitrostat] 0.4 mg SUBLINGUAL Q5M PRN #25 tab PRN Reason: Chest Pain amLODIPine [Norvasc] 10 mg PO DAILY tab Levothyroxine Sodium [Synthroid] 224 mcg PO DAILY@0500 tab Furosemide [Lasix] 40 mg PO BID@0900,1600 tab Metoprolol Succinate (ER) [Toprol XL] 100 mg PO BID tab.er.24h Doxycycline [Vibramycin] 100 mg PO BID #10 cap Continue Ketoconazole 2% Cream [Nizoral 2%] 1 applic TOPICAL Q12H PRN PRN Reason: under breasts when flared Hydrocortisone Cream [Hydrocortisone 2.5% Cream] 1 applic TOPICAL Q12H PRN PRN Reason: under breasts when flared Baclofen 10 mg PO Q12H PRN PRN Reason: Pain Insulin Aspart [NovoLOG Flexpen] See Protocol SQ ACHS SILVER sulfADIAZINE Cream [Silvadene 1% Cream] 1 applic TOPICAL BID Rivaroxaban [Xarelto] 20 mg PO HS Losartan [Cozaar] 50 mg PO DAILY Ipratropium-Albuterol Nebulize [Duoneb 0.5 mg-3 mg/3 ml Soln] 3 ml INHALATION RT-TID ml Pregabalin [Lyrica] 100 mg PO BID@0800,2000 #6 cap Acetaminophen Tab [Tylenol] 325 - 650 mg PO Q6H PRN PRN Reason: Pain Mometasone Furoate [Elocon] 1 applic TOPICAL BID Gemfibrozil [Lopid] 600 mg PO BID@0700,1600 Fluticasone/Salmeterol [Advair Hfa 115-21 Mcg Inhaler] 2 puff INHALATION RT- BID Albuterol Nebulized [Ventolin Nebulized] 2.5 mg INHALATION RT-BID PRN PRN Reason: Shortness Of Breath sitaGLIPtin PHOSPHATE [Januvia] 50 mg PO DAILY rOPINIRole HCL [Requip] 0.5 mg PO HS@1999 QUEtiapine FUMARATE 300 mg PO HS@1999 Latanoprost/Pf [Latanoprost 0.005% Eye Drop] 1 drop BOTH EYES HS Tamsulosin [Flomax] 0.4 mg PO BID@1400,1999 Escitalopram [Lexapro] 20 mg PO DAILY Ergocalciferol [Vitamin D2 (1250 Mcg = 38267 Iu)] 1,250 mcg PO MO Atorvastatin [Lipitor] 40 mg PO HS Aspirin 81 mg PO DAILY Insulin Aspart [NovoLOG Flexpen] 13 units SQ AC-TID Insulin Glargine [Lantus] 96 unit SQ HS Primidone [Mysoline] 250 mg PO HS@1999 HYDROcodone/APAP 7.5-325MG [Hernshaw 7.5-325] 1 tab PO Q8H PRN #9 tab PRN Reason: Pain Changed LORazepam [Ativan] 0.5 mg PO HS #3 Discontinued Metoprolol Succinate [Toprol XL] 50 mg PO BID Levothyroxine Sodium [Synthroid] 200 mcg PO DAILY@0500 Amoxicillin/Potassium Clav [Augmentin 875-125 Tablet] 1 tab PO BID@0800,1999 Furosemide [Lasix] 40 mg PO DAILY@0500 Discharge Medication List Acetaminophen Tab [Tylenol] 325 - 650 mg PO Q6H PRN 06/28/20 [History] Albuterol Nebulized [Ventolin Nebulized] 2.5 mg INHALATION RT-BID PRN 06/28/20 [History] Aspirin 81 mg PO DAILY 06/28/20 [History] Atorvastatin [Lipitor] 40 mg PO HS 06/28/20 [History] Baclofen 10 mg PO Q12H PRN 06/28/20 [History] Ergocalciferol [Vitamin D2 (1250 Mcg = 63518 Iu)] 1,250 mcg PO MO 06/28/20 [History] Escitalopram [Lexapro] 20 mg PO DAILY 06/28/20 [History] Fluticasone/Salmeterol [Advair Hfa 115-21 Mcg Inhaler] 2 puff INHALATION RT-BID 06/28/20 [History] Gemfibrozil [Lopid] 600 mg PO BID@0700,1600 06/28/20 [History] Hydrocortisone Cream [Hydrocortisone 2.5% Cream] 1 applic TOPICAL Q12H PRN 06/28/20 [History] Insulin Aspart [NovoLOG Flexpen] See Protocol SQ ACHS 06/28/20 [History] Ketoconazole 2% Cream [Nizoral 2%] 1 applic TOPICAL Q12H PRN 06/28/20 [History] Latanoprost/Pf [Latanoprost 0.005% Eye Drop] 1 drop BOTH EYES HS 06/28/20 [History] Losartan [Cozaar] 50 mg PO DAILY 06/28/20 [History] Mometasone Furoate [Elocon] 1 applic TOPICAL BID 06/28/20 [History] QUEtiapine FUMARATE 300 mg PO HS@199906/28/20 [History] Rivaroxaban [Xarelto] 20 mg PO HS 06/28/20 [History] SILVER sulfADIAZINE Cream [Silvadene 1% Cream] 1 applic TOPICAL BID 06/28/20 [History] Tamsulosin [Flomax] 0.4 mg PO BID@1399,199906/28/20 [History] rOPINIRole HCL [Requip] 0.5 mg PO HS@199906/28/20 [History] sitaGLIPtin PHOSPHATE [Januvia] 50 mg PO DAILY 06/28/20 [History] Ipratropium-Albuterol Nebulize [Duoneb 0.5 mg-3 mg/3 ml Soln] 3 ml INHALATION RT-TID ml 06/30/20 [Rx] Insulin Aspart [NovoLOG Flexpen] 13 units SQ AC-TID 07/10/20 [History] Insulin Glargine [Lantus] 96 unit SQ HS 07/10/20 [History] Primidone [Mysoline] 250 mg PO HS@199907/10/20 [History] Doxycycline [Vibramycin] 100 mg PO BID #10 cap 07/16/20 [Rx] Furosemide [Lasix] 40 mg PO BID@0900,1600 tab 07/16/20 [Rx] HYDROcodone/APAP 7.5-325MG [Hernshaw 7.5-325] 1 tab PO Q8H PRN #9 tab 06/09/21 [Rx] LORazepam [Ativan] 0.5 mg PO HS #3 07/16/20 [Rx] Levothyroxine Sodium [Synthroid] 224 mcg PO DAILY@0500 tab 07/16/20 [Rx] Metoprolol Succinate (ER) [Toprol XL] 100 mg PO BID tab.er.24h 07/16/20 [Rx] Nitroglycerin Sl Tabs [Nitrostat] 0.4 mg SUBLINGUAL Q5M PRN #25 tab 07/16/20 [Rx] Pregabalin [Lyrica] 100 mg PO BID@0800,2000 #6 cap 07/16/20 [Rx] amLODIPine [Norvasc] 10 mg PO DAILY tab 07/16/20 [Rx] Follow up Appointment(s)/Referral(s): Damian Silva MD [Primary Care Provider] - 1 Week (at [facility]) Patient Instructions/Handouts: Seizure/Epilepsy Discharge Instructions & Follow-Up Discharge Disposition: TRANSFER TO SNF/ECF
[2020-07-16] MEDS: TAMSULOSIN 0.4 MG CAP.ER.24H PO SCH (12:59)
[2020-07-16] MEDS: LINAGLIPTIN 5 MG TABLET PO SCH (12:59)
[2020-07-16] MEDS: FUROSEMIDE 40 MG TAB PO SCH (13:03)
[2020-07-16] MEDS ORDERED: FUROSEMIDE 40 MG TAB PO SCH (16:00)
[2020-07-16 16:03] VITALS: BP 172/76; PULSE 64
[2020-07-16 16:57] LABS: Glucose,Whole Blood 98 mg/dL (75-99)
[2020-07-16] MEDS: HEPARIN SOD,PORK IN 0.45% NACL 25,000 UNIT in 0.45% NACL 1 250ML.BAG IV SCH (17:19)
--- NOTE | 2020-07-16 22:18 | P.CARDCATH ---
Description of Procedure: PROCEDURES PERFORMED: Left heart catheterization, bilateral coronary angiography INDICATION: Elevated troponins, abnormal stress test HISTORY: Patient is a pleasant 69 year old female with history of prior PCI to RCA, SVT and morbid obesity who was having increased episodes of chest pain and SOB and was found to be in SVT. Chest pain and SOB improved after SVT controlled however was noted to have elevated troponins and stress test showed inferior fixed defect with some reversibility and therefore LHC was recommened. CONSENT:I have discussed the risks, benefits and alternative therapies for the above-mentioned procedure and for both sedation/analgesia as well as necessary blood product administration, if indicated, as they pertain to this patient. The patient has indicated understanding and acceptance of the risks and procedures discussed. PROCEDURE: After the risks, benefits and alternatives of the above mentioned procedure explained in detail with the patient, informed consent was obtained. Patient was taken to the catheterization lab and prepped and draped in usual fashion. 1% lidocaine was used to anesthetize the right radial artery. A 6- Citizen [place] sheath was placed in the right radial artery using modified Seldinger technique. Left coronary angiography was performed with a 5-Citizen [place] JL 3.5 catheter and right coronary angiography was performed with a 5-Citizen [place] JR5 catheter in various views. The JR5 was advanced into the LV and pressure measurements were obtained. The right radial sheath was removed and a TR band was placed with hemostasis achieved. The patient tolerated the procedure well. Patient was transported back to the post catheterization holding area in stable condition. Conscious Sedation: Patient was monitored under the direct supervision of vision of myself for conscious sedation using Versed and fentanyl for a total duration of 18 minutes HEMODYNAMICS: Ao: 134/81 LV: 132/10, LVEDP 27mmHg SELECTIVE CORONARY ARTERIOGRAPHY: LEFT MAIN: The left main is a large caliber vessel which bifurcates into the LAD and circumflex. There is no significant stenosis. LEFT ANTERIOR DESCENDING CORONARY ARTERY: LAD is a large caliber vessel which wraps around to the apex. There is proximal LAD 20-30% stenosis and otherwise mild luminal irregularities. LEFT CIRCUMFLEX CORONARY ARTERY: Left circumflex is a moderate caliber vessel without significant stenosis. There are robust left to right collaterals. RIGHT CORONARY ARTERY: The right coronary artery is a large caliber vessel which gives off a PDA and PLV branch and is the dominant vessel. There is a proximal 100% stenosis. There is a mid RCA stent. FINAL IMPRESSION: 1. CAD as described above with mild disease of the left system, 100% RCA stenosis and robust left to right collaterals. 2. Very elevated left sided filling pressures. PLAN: 1. Aggressive risk factor modification per most recent ACC/AHA guidelines. 2. 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 3. Very elevated left sided filling pressures and would recommend increasing home diuretics.
== END 2020-07-16 17:19 | DRG 871 ==
LOC: EDBD → EC 13:56 → 6NMEDSUR 19:49 → OBSVTOIN 07-11 11:36 → 3SCARD 07-11 17:59
PROVIDERS: ADMIT Internal Medicine; ATTEND Internal Medicine
PROC: 4A023N7 Measurement of Cardiac Sampling and Pressure, Left Heart, Percutaneous Approach (ICD-10-PCS; principal; 2020-07-16 07:30)
PROC: B2111ZZ Fluoroscopy of Multiple Coronary Arteries using Low Osmolar Contrast (ICD-10-PCS; principal; 2020-07-16 07:30)
DX: A41.50 Gram-negative sepsis, unspecified (principal); G92 Toxic encephalopathy; J96.21 Acute and chronic respiratory failure with hypoxia; J96.22 Acute and chronic respiratory failure with hypercapnia; N17.0 Acute kidney failure with tubular necrosis; E66.2 Morbid (severe) obesity with alveolar hypoventilation; F05 Delirium due to known physiological condition; I13.0 Hypertensive heart and chronic kidney disease with heart failure and stage 1 through stage 4 chronic kidney disease, or unspecified chronic kidney disease; I47.1 Supraventricular tachycardia; L03.116 Cellulitis of left lower limb; N39.0 Urinary tract infection, site not specified; Z68.43 Body mass index [BMI] 50.0-59.9, adult; R65.20 Severe sepsis without septic shock; E11.22 Type 2 diabetes mellitus with diabetic chronic kidney disease; E11.42 Type 2 diabetes mellitus with diabetic polyneuropathy; E11.51 Type 2 diabetes mellitus with diabetic peripheral angiopathy without gangrene; F03.90 Unspecified dementia, unspecified severity, without behavioral disturbance, psychotic disturbance, mood disturbance, and anxiety; I27.21 Secondary pulmonary arterial hypertension; Z20.822 Contact with and (suspected) exposure to COVID-19; I50.9 Heart failure, unspecified; Z86.74 Personal history of sudden cardiac arrest; Z99.81 Dependence on supplemental oxygen; K76.0 Fatty (change of) liver, not elsewhere classified; Z89.611 Acquired absence of right leg above knee; R62.7 Adult failure to thrive; H40.9 Unspecified glaucoma; F31.9 Bipolar disorder, unspecified; G25.0 Essential tremor; E78.5 Hyperlipidemia, unspecified; E55.9 Vitamin D deficiency, unspecified; E03.9 Hypothyroidism, unspecified; E86.0 Dehydration; I25.10 Atherosclerotic heart disease of native coronary artery without angina pectoris; G89.4 Chronic pain syndrome; I25.2 Old myocardial infarction; I87.8 Other specified disorders of veins; G25.81 Restless legs syndrome; J44.9 Chronic obstructive pulmonary disease, unspecified; K21.9 Gastro-esophageal reflux disease without esophagitis; M47.816 Spondylosis without myelopathy or radiculopathy, lumbar region; N18.30 Chronic kidney disease, stage 3 unspecified; T50.905A Adverse effect of unspecified drugs, medicaments and biological substances, initial encounter; T42.6X5A Adverse effect of other antiepileptic and sedative-hypnotic drugs, initial encounter; T40.2X5A Adverse effect of other opioids, initial encounter; Z79.01 Long term (current) use of anticoagulants; Z79.4 Long term (current) use of insulin; R77.8 Other specified abnormalities of plasma proteins; Z79.51 Long term (current) use of inhaled steroids; Z79.82 Long term (current) use of aspirin; Z79.890 Hormone replacement therapy; Z79.899 Other long term (current) drug therapy; Z82.49 Family history of ischemic heart disease and other diseases of the circulatory system; Z81.1 Family history of alcohol abuse and dependence; Z83.6 Family history of other diseases of the respiratory system; Z86.718 Personal history of other venous thrombosis and embolism; Z86.73 Personal history of transient ischemic attack (TIA), and cerebral infarction without residual deficits; Z87.891 Personal history of nicotine dependence; Z89.511 Acquired absence of right leg below knee; Z90.710 Acquired absence of both cervix and uterus; Z90.81 Acquired absence of spleen; Z95.5 Presence of coronary angioplasty implant and graft; Z96.653 Presence of artificial knee joint, bilateral
CPT/HCPCS: 36415; 36600; 70450; 71045; 71046; 78452; 80048; 80053; 80306; 81001; 82140; 82550; 82805; 83605; 83735; 84132; 84146; 84439; 84443; 84484; 85025; 85027; 85379; 85610; 85730; 87040; 87077; 87086; 87186; 87635; 93005; 93017; 93308; 93458; 94640; 94660; 94760; 96361; 96374; 96375; 99285

== ENCOUNTER 2020-10-11 05:42 | Inpatient (IN) | payer MEDICARE ==
[2020-10-11] MEDS ORDERED: SODIUM CHLORIDE 0.9% 500 ML 500 ML IV STA (05:45)
[2020-10-11] MEDS ORDERED: methylPREDNISolone SOD SUCCI 125 MG/2 ML VIAL IV STA (05:48)
[2020-10-11] MEDS ORDERED: IPRATROPIUM-ALBUTEROL 3 ML NEB INHALATION STA (05:48)
[2020-10-11] MEDS ORDERED: ACETAMINOPHEN IV (For NPO) 1,000 MG in EMPTY BAG 1 BAG IVPB ONE (06:00)
--- NOTE | 2020-10-11 06:06 | ED ---
Altered Mental Status HPI - General Chief Complaint: Altered Mental Status Stated Complaint: Altered mental status Time Seen by Provider: 10/11/20 05:45 Source: patient, EMS, RN notes reviewed, old records reviewed Mode of arrival: EMS Limitations: no limitations - History of Present Illness Initial Comments: This is a 70-year-old female to the emergency department today. Patient resents today for evaluation regards to altered mental status. Patient unable to provide history. Patient is a DO NOT RESUSCITATE patient sent DF for fever altered mental status difficulty breathing and malodorous smell to general urine. Again patient can't provide history history obtained from staff MD Complaint: altered mental status, confusion, decreased responsiveness, weakness -: unknown Severity: moderate Consistency of Symptoms: getting worse Context: history of similar presentation, recent fever Associated Symptoms: weakness, foul smelling urine Treatments Prior to Arrival: IV fluid, oxygen - Related Data Home Medications Medication Instructions Recorded Confirmed Acetaminophen Tab [Tylenol] 325 mg PO Q6H PRN 06/28/20 10/11/20 Albuterol Nebulized [Ventolin 2.5 mg INHALATION RT-BID 06/28/20 10/11/20 Nebulized] Aspirin 81 mg PO DAILY@0800 06/28/20 10/11/20 Atorvastatin [Lipitor] 40 mg PO HS@199906/28/20 10/11/20 Ergocalciferol [Vitamin D2 (1250 1,250 mcg PO TU 06/28/20 10/11/20 Mcg = 35673 Iu)] Escitalopram [Lexapro] 20 mg PO DAILY@0800 06/28/20 10/11/20 Fluticasone/Salmeterol [Advair Hfa 2 puff INHALATION RT-BID@0800,1600 06/28/20 10/11/20 115-21 Mcg Inhaler] Gemfibrozil [Lopid] 600 mg PO BID@0800,1600 06/28/20 10/11/20 Ketoconazole 2% Cream [Nizoral 2%] 1 applic TOPICAL Q12H PRN 06/28/20 10/11/20 Latanoprost/Pf [Latanoprost 0.005% 1 drop BOTH EYES HS@199906/28/20 10/11/20 Eye Drop] Losartan [Cozaar] 50 mg PO DAILY@0800 06/28/20 10/11/20 QUEtiapine FUMARATE 150 mg PO HS@199906/28/20 10/11/20 Rivaroxaban [Xarelto] 20 mg PO HS@199906/28/20 10/11/20 Tamsulosin [Flomax] 0.4 mg PO BID@0800,1600 06/28/20 10/11/20 rOPINIRole HCL [Requip] 0.5 mg PO HS@199906/28/20 10/11/20 sitaGLIPtin PHOSPHATE [Januvia] 50 mg PO DAILY@0800 06/28/20 10/11/20 Insulin Aspart [NovoLOG Flexpen] 13 units SQ AC-TID 07/10/20 10/11/20 Insulin Glargine [Lantus Vial] 96 unit SQ HS@199907/10/20 10/11/20 Primidone [Mysoline] 125 mg PO HS@199907/10/20 10/11/20 Albuterol Nebulized [Ventolin 2.5 mg INHALATION RT-QID PRN 10/11/20 10/11/20 Nebulized] Furosemide [Lasix] 40 mg PO BID@0400,1300 10/11/20 10/11/20 HYDROcodone/APAP 10-325MG [[place] 1 tab PO Q8H 10/11/20 10/11/20 10-325] Levothyroxine Sodium [Synthroid] 112 mcg PO DAILY@0500 10/11/20 10/11/20 Mag Hydrox/Al Hydrox/Simeth 15 ml PO ACHS 10/11/20 10/11/20 [Maalox] Nitroglycerin Sl Tabs [Nitrostat] 0.4 mg SL Q5M PRN 10/11/20 10/11/20 Pregabalin [Lyrica] 100 mg PO BID@0800,1600 10/11/20 10/11/20 amLODIPine [Norvasc] 10 mg PO DAILY@0800 10/11/20 10/11/20 lamoTRIgine [LaMICtal Xr] 50 mg PO DAILY@0500 10/11/20 10/11/20 Previous Rx's Medication Instructions Recorded Metoprolol Succinate (ER) [Toprol 100 mg PO BID tab.er.24h 07/16/20 XL] Allergies Allergy/AdvReac Type Severity Reaction Status Date / Time adhesive tape Allergy Unknown Verified 10/11/20 07:41 sertraline [From Zoloft] Allergy Unknown Verified 10/11/20 07:41 vancomycin Allergy Unknown Verified 10/11/20 07:41 birds Allergy Unknown Uncoded 10/11/20 07:41 Review of Systems ROS Statement: Those systems with pertinent positive or pertinent negative responses have been documented in the HPI. ROS Other: All systems not noted in ROS Statement are negative. Past Medical History Past Medical History: Asthma, Coronary Artery Disease (CAD), Heart Failure, COPD, CVA/TIA, Dementia, Diabetes Mellitus, Deep Vein Thrombosis (DVT), Eye Disorder, Hyperlipidemia, Hypertension, Liver Disease, Myocardial Infarction ([place]), Renal Disease, Sleep Apnea/CPAP/BIPAP, Thyroid Disorder, Vascular Disorder Additional Past Medical History / Comment(s): Pt recently admitted to [facility] on 06/28/20 with acute hypercarbic respiratory failure d/t CO2 narcosis d/t exacerbation COPD with obesity hypoventilation syndrome, JANES, metabolis encephalopathy d/t CO2 narcosis. 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 Last Myocardial Infarction Date:: 2009 History of Any Multi-Drug Resistant Organisms: None Reported, Unobtainable Past Surgical History: Heart Catheterization With Stent, Hysterectomy, Joint Replacement Additional Past Surgical History / Comment(s): Splenectomy, R AKA, bilateral total knee arthroplasties, R AKA, PCI with stent, "umbrella" device inserted d/t DVTs. Past Anesthesia/Blood Transfusion Reactions: No Reported Reaction, Motion Sickness Date of Last Stent Placement:: 2009 Past Psychological History: Anxiety, Bipolar, Depression Smoking Status: Former smoker Past Alcohol Use History: Unable to Obtain Past Drug Use History: Unable to Obtain - Past Family History Mother Family Medical History: Coronary Artery Disease (CAD), Myocardial Infarction ([place]) Additional Family Medical History / Comment(s): Mother of a [place] in her 60s. Father Family Medical History: Respiratory Disorder Additional Family Medical History / Comment(s): ETOH abuse, TB General Exam Limitations: no limitations Course Vital Signs 10/11/20 10/11/20 10/11/20 05:44 05:57 06:17 Temperature 103 F H Pulse Rate 95 82 85 Respiratory 20 Rate Blood Pressure 112/98 O2 Sat by Pulse 82 L Oximetry 10/11/20 10/11/20 10/11/20 06:28 07:54 08:00 Temperature 101.6 F H Pulse Rate 87 90 Respiratory 20 22 22 Rate Blood Pressure 158/94 137/66 O2 Sat by Pulse 91 L 96 Oximetry 10/11/20 10/11/20 08:06 08:08 Temperature Pulse Rate 74 76 Respiratory 18 Rate Blood Pressure 125/66 O2 Sat by Pulse 92 L Oximetry - Reevaluation(s) Reevaluation #1: 10/11/20 06:43 Medical record is reviewed Reevaluation #2: 10/11/20 06:43 6 patient has no real change in symptoms, fevers improved breathing is improved with oxygen breathing treatment 10/11/20 06:59 Patient is to be placed on BiPAP - Consultations Consultation #1: Spoke with Dr. Silva who agrees to admit this patient Consultation #2: sPoke with ICU who accepted patient ICU Medical Decision Making - Medical Decision Making 70 female presenting with sepsis UTI with sepsis history of same. Both hypoxic and hypercarbic respiratory failure. Patient is fever with hypoxia - Lab Data Result diagrams: 10/11/20 05:56 10/11/20 05:56 Lab Results 10/11/20 10/11/20 10/11/20 Range/Units 05:56 05:56 05:56 WBC 14.8 H (3.8-10.6) k/uL RBC 3.93 (3.80-5.40) m/uL Hgb 13.3 (11.4-16.0) gm/dL Hct 40.6 (34.0-46.0) % MCV 103.4 H (80.0-100.0) fL MCH 33.8 (25.0-35.0) pg MCHC 32.7 (31.0-37.0) g/dL RDW 15.2 (11.5-15.5) % Plt Count 259 (150-450) k/uL MPV 10.6 Neutrophils % 73 % Lymphocytes % 16 % Monocytes % 7 % Eosinophils % 1 % Basophils % 0 % Neutrophils # 10.8 H (1.3-7.7) k/uL Lymphocytes # 2.4 (1.0-4.8) k/uL Monocytes # 1.0 (0-1.0) k/uL Eosinophils # 0.2 (0-0.7) k/uL Basophils # 0.1 (0-0.2) k/uL Macrocytosis Moderate PT 11.0 (9.0-12.0) sec INR 1.0 (<1.2) APTT 25.2 (22.0-30.0) sec Sodium (137-145) mmol/L Potassium (3.5-5.1) mmol/L Chloride (98-107) mmol/L Carbon Dioxide (22-30) mmol/L Anion Gap mmol/L BUN (7-17) mg/dL Creatinine (0.52-1.04) mg/dL Est GFR (CKD-EPI)AfAm (>60 ml/min/1.73 sqM) Est GFR (CKD-EPI)NonAf (>60 ml/min/1.73 sqM) Glucose (74-99) mg/dL Plasma Lactic Acid Jonathan (0.7-2.0) mmol/L Calcium (8.4-10.2) mg/dL Phosphorus (2.5-4.5) mg/dL Magnesium (1.6-2.3) mg/dL Total Bilirubin (0.2-1.3) mg/dL AST (14-36) U/L ALT (4-34) U/L Alkaline Phosphatase (38-126) U/L Ammonia (<30) umol/L Lactate Dehydrogenase (313-618) U/L Creatine Kinase (30-135) U/L Troponin I (0.000-0.034) ng/mL C-Reactive Protein (<1.0) mg/dL NT-Pro-B Natriuret Pep pg/mL Total Protein (6.3-8.2) g/dL Albumin (3.5-5.0) g/dL TSH (0.465-4.680) mIU/L Urine Color [place] Urine Appearance Cloudy H (Clear) Urine pH 8.0 (5.0-8.0) Ur Specific [place] 1.015 (1.001-1.035) Urine Protein 3+ H (Negative) Urine Glucose (UA) Negative (Negative) Urine Ketones Negative (Negative) Urine Blood Large H (Negative) Urine Nitrite Positive H (Negative) Urine Bilirubin Negative (Negative) Urine Urobilinogen <2.0 (<2.0) mg/dL Ur Leukocyte Esterase Large H (Negative) Urine RBC >182 H (0-5) /hpf Urine WBC >182 H (0-5) /hpf Urine WBC Clumps Many H (None) /hpf Urine Bacteria Moderate H (None) /hpf Hyaline Casts 5 H (0-2) /lpf Coronavirus (PCR) (Not Detectd) 10/11/20 10/11/20 10/11/20 Range/Units 05:56 05:56 05:56 WBC (3.8-10.6) k/uL RBC (3.80-5.40) m/uL Hgb (11.4-16.0) gm/dL Hct (34.0-46.0) % MCV (80.0-100.0) fL MCH (25.0-35.0) pg MCHC (31.0-37.0) g/dL RDW (11.5-15.5) % Plt Count (150-450) k/uL MPV Neutrophils % % Lymphocytes % % Monocytes % % Eosinophils % % Basophils % % Neutrophils # (1.3-7.7) k/uL Lymphocytes # (1.0-4.8) k/uL Monocytes # (0-1.0) k/uL Eosinophils # (0-0.7) k/uL Basophils # (0-0.2) k/uL Macrocytosis PT (9.0-12.0) sec INR (<1.2) APTT (22.0-30.0) sec Sodium 141 (137-145) mmol/L Potassium 5.2 H (3.5-5.1) mmol/L Chloride 98 (98-107) mmol/L Carbon Dioxide 32 H (22-30) mmol/L Anion Gap 11 mmol/L BUN 50 H (7-17) mg/dL Creatinine 1.32 H (0.52-1.04) mg/dL Est GFR (CKD-EPI)AfAm 48 (>60 ml/min/1.73 sqM) Est GFR (CKD-EPI)NonAf 42 (>60 ml/min/1.73 sqM) Glucose 124 H (74-99) mg/dL Plasma Lactic Acid [place] 1.3 (0.7-2.0) mmol/L Calcium 10.7 H (8.4-10.2) mg/dL Phosphorus 2.9 (2.5-4.5) mg/dL Magnesium 2.8 H (1.6-2.3) mg/dL Total Bilirubin 0.3 (0.2-1.3) mg/dL AST 43 H (14-36) U/L ALT 18 (4-34) U/L Alkaline Phosphatase 191 H (38-126) U/L Ammonia 45 H (<30) umol/L Lactate Dehydrogenase 926 H (313-618) U/L Creatine Kinase 106 (30-135) U/L Troponin I 0.024 (0.000-0.034) ng/mL C-Reactive Protein 3.4 H (<1.0) mg/dL NT-Pro-B Natriuret Pep pg/mL Total Protein 8.3 H (6.3-8.2) g/dL Albumin 4.6 (3.5-5.0) g/dL TSH 91.900 H (0.465-4.680) mIU/L Urine Color Urine Appearance (Clear) Urine pH (5.0-8.0) Ur Specific [place] (1.001-1.035) Urine Protein (Negative) Urine Glucose (UA) (Negative) Urine Ketones (Negative) Urine Blood (Negative) Urine Nitrite (Negative) Urine Bilirubin (Negative) Urine Urobilinogen (<2.0) mg/dL Ur Leukocyte Esterase (Negative) Urine RBC (0-5) /hpf Urine WBC (0-5) /hpf Urine WBC Clumps (None) /hpf Urine Bacteria (None) /hpf Hyaline Casts (0-2) /lpf Coronavirus (PCR) (Not Detectd) 10/11/20 10/11/20 Range/Units 05:56 05:56 WBC (3.8-10.6) k/uL RBC (3.80-5.40) m/uL Hgb (11.4-16.0) gm/dL Hct (34.0-46.0) % MCV (80.0-100.0) fL MCH (25.0-35.0) pg MCHC (31.0-37.0) g/dL RDW (11.5-15.5) % Plt Count (150-450) k/uL MPV Neutrophils % % Lymphocytes % % Monocytes % % Eosinophils % % Basophils % % Neutrophils # (1.3-7.7) k/uL Lymphocytes # (1.0-4.8) k/uL Monocytes # (0-1.0) k/uL Eosinophils # (0-0.7) k/uL Basophils # (0-0.2) k/uL Macrocytosis PT (9.0-12.0) sec INR (<1.2) APTT (22.0-30.0) sec Sodium (137-145) mmol/L Potassium (3.5-5.1) mmol/L Chloride (98-107) mmol/L Carbon Dioxide (22-30) mmol/L Anion Gap mmol/L BUN (7-17) mg/dL Creatinine (0.52-1.04) mg/dL Est GFR (CKD-EPI)AfAm (>60 ml/min/1.73 sqM) Est GFR (CKD-EPI)NonAf (>60 ml/min/1.73 sqM) Glucose (74-99) mg/dL Plasma Lactic Acid [place] (0.7-2.0) mmol/L Calcium (8.4-10.2) mg/dL Phosphorus (2.5-4.5) mg/dL Magnesium (1.6-2.3) mg/dL Total Bilirubin (0.2-1.3) mg/dL AST (14-36) U/L ALT (4-34) U/L Alkaline Phosphatase (38-126) U/L Ammonia (<30) umol/L Lactate Dehydrogenase (313-618) U/L Creatine Kinase (30-135) U/L Troponin I (0.000-0.034) ng/mL C-Reactive Protein (<1.0) mg/dL NT-Pro-B Natriuret Pep 991 pg/mL Total Protein (6.3-8.2) g/dL Albumin (3.5-5.0) g/dL TSH (0.465-4.680) mIU/L Urine Color Urine Appearance (Clear) Urine pH (5.0-8.0) Ur Specific [place] (1.001-1.035) Urine Protein (Negative) Urine Glucose (UA) (Negative) Urine Ketones (Negative) Urine Blood (Negative) Urine Nitrite (Negative) Urine Bilirubin (Negative) Urine Urobilinogen (<2.0) mg/dL Ur Leukocyte Esterase (Negative) Urine RBC (0-5) /hpf Urine WBC (0-5) /hpf Urine WBC Clumps (None) /hpf Urine Bacteria (None) /hpf Hyaline Casts (0-2) /lpf Coronavirus (PCR) Not Detected (Not Detectd) - EKG Data -: EKG Interpreted by Me (EKG shows sinus 73 RI 2:30 QRS 120 QTc 427) Critical Care Time Critical Care Time: Yes Total Critical Care Time: 31 Disposition Clinical Impression: Altered mental status, Acute exacerbation of chronic obstructive pulmonary disease, Acute respiratory failure, Hypoxia, Delirium due to general medical condition, Dehydration, Fever, Urinary tract infection, Do not resuscitate Disposition: ADMITTED IP TO THIS [facility] Condition: Critical Is patient prescribed a controlled substance at d/c from ED?: No
[2020-10-11 06:21] LABS: Basophils # (A) 0.1 k/uL (0-0.2); Basophils % (A) 0 %; Eosinophils # (A) 0.2 k/uL (0-0.7); Eosinophils % (A) 1 %; HCT 40.6 % (34.0-46.0); HGB 13.3 gm/dL (11.4-16.0); Lymphocytes # (A) 2.4 k/uL (1.0-4.8); Lymphocytes % (A) 16 %; MCH 33.8 pg (25.0-35.0); MCHC 32.7 g/dL (31.0-37.0); MCV 103.4 fL (80.0-100.0); Macrocytosis Moderate; Mean Platelet Volume 10.6; Monocytes % (A) 7 %; Neutrophils # (A) 10.8 k/uL (1.3-7.7); Neutrophils % (A) 73 %; Platelet Count 259 k/uL (150-450); RBC 3.93 m/uL (3.80-5.40); RDW 15.2 % (11.5-15.5); WBC 14.8 k/uL (3.8-10.6)
[2020-10-11 06:30] LABS: Lactic Acid, Venous 1.3 mmol/L (0.7-2.0)
[2020-10-11 06:34] LABS: Albumin 4.6 g/dL (3.5-5.0); C Reactive Protein 3.4 mg/dL (<1.0); Calcium 10.7 mg/dL (8.4-10.2); Magnesium 2.8 mg/dL (1.6-2.3); Phosphorus 2.9 mg/dL (2.5-4.5); Potassium 5.2 mmol/L (3.5-5.1); Total Bilirubin 0.3 mg/dL (0.2-1.3); Total Protein 8.3 g/dL (6.3-8.2)
[2020-10-11 06:41] LABS: Partial Thromboplastin Time 25.2 sec (22.0-30.0)
[2020-10-11] MEDS ORDERED: IPRATROPIUM-ALBUTEROL 3 ML NEB INHALATION PRN (06:46)
[2020-10-11] MEDS ORDERED: MORPHINE SULFATE 4 MG/ML SYRINGE IV PRN (06:46)
[2020-10-11] MEDS ORDERED: NALOXONE 0.4 MG/ML 1 ML VIAL IV PRN (06:46)
[2020-10-11] MEDS ORDERED: ONDANSETRON 4 MG/2 ML VIAL IVP PRN (06:46)
[2020-10-11 07:04] LABS: Appearance,Urine Cloudy (Clear); Bacteria,Urine Moderate /hpf; Bilirubin,Urine Negative (Negative); Blood,Urine Large (Negative); Color,Urine Light Orange; Glucose,Urine (UA) Negative (Negative); Hyaline Casts,Urine 5 /lpf (0-2); Ketones,Urine Negative (Negative); Leukocyte Esterase,Urine Large (Negative); Nitrite,Urine Positive (Negative); Protein,Urine 3+ (Negative); RBC,Urine >182 /hpf (0-5); Specific Gravity,Urine 1.015 (1.001-1.035); Urobilinogen,Urine <2.0 mg/dL (<2.0); WBC,Urine >182 /hpf (0-5)
--- NOTE | 2020-10-11 07:09 | XR ---
EXAMINATION TYPE: XR chest 1V portable DATE OF EXAM: 10/11/2020 COMPARISON: 07/13/2020 HISTORY: 70 years Female. STUDY INDICATION GIVEN: sob . TECHNIQUE: AP upright portable chest radiograph FINDINGS AND IMPRESSION: Technically suboptimal study due to patient body habitus. There is mild pulmonary edema and central vascular congestion with cardiomegaly. There are slightly patchy-like opacities in the peripheral aspect of both lungs and lung bases, the d iaphragm is silhouetted. These findings could be on the basis of subsegmental atelectasis or pneumoni c infiltrates and clinical correlation is recommended. Small bilateral pleural effusions. No pneumothorax. Evaluation of the osseous structures and upper abdomen is limited.
[2020-10-11] MEDS ORDERED: LEVOFLOXACIN 750MG-D5W PMX 750 MG in DEXTROSE/WATER 1 150ML.BAG IVPB STA (07:12)
[2020-10-11] MEDS: SODIUM CHLORIDE 0.9% 1,000 ML IV SCH ×2 (07:52→15:59)
[2020-10-11] MEDS ORDERED: ALBUTEROL NEBULIZED 2.5 MG/3 ML INHALATION SCH ×2 (08:00→20:00)
[2020-10-11] MEDS: IPRATROPIUM-ALBUTEROL 3 ML NEB INHALATION SCH ×4 (08:06→19:26)
--- NOTE | 2020-10-11 08:34 | P.CNPUL ---
History of Present Illness Consult date: 10/11/20 Requesting physician: Damian Silva Reason for consult: dyspnea, COPD, hypoxemia, abnormal CXR/CT, obstructive sleep apnea Chief complaint: Mental status changes. History of present illness: Pulmonary consult dated 10/11/2020. 70-year-old female who resides at one of the local nursing homes. The patient apparently presents to the emergency department with mental status changes. The patient was not able to provide any history. She was evaluated by the ER physician was thought to have a urinary tract infection, possible underlying sepsis. He call me about the possibility of an ICU admission. Patient's currently on BiPAP with settings of IPAP 12, EPAP 6, and 40%. She's getting saline at 130 mL an hour, and IV Levaquin. She has a history of previous right [id number] amputation. I saw her last in June for a episode of acute hypoxemic respiratory failure, secondary to COPD exacerbation, CHF, and sleep apnea. Currently, white count 14.8, hemoglobin 13.3, hematocrit 40.6, and pl atelet count 259,000. PT, INR, and PTT are normal. Sodium 141, potassium 5.2, chlorides 98, CO2 32, anion gap 11, BUN 50, and creatinine 1.32. Lactic acid 1.3 calcium 10.7, ammonia 45, LDH 926, C-reactive protein 3.4, and N-terminal proBNP 991, TSH 92, and urine was light orange color, cloudy, 3+ protein, large blood, positive for both leukocyte esterase and nitrite, with greater than 182 WBCs, and moderate bacteria. Should it also had many white blood cell clumps. Chest x-ray showed cardiomegaly, with pulmonary vascular congestion, and possible underlying infiltrates, which could be on the basis of atelectasis and/or pneumonia. Chest x-ray itself was very difficult to evaluate given her body habitus. Review of Systems A 14 point review of systems was attempted, but the patient's very lethargic and somnolent. She does arouse, but really give no additional history. Past Medical History Past Medical History: Asthma, Coronary Artery Disease (CAD), Heart Failure, COPD, CVA/TIA, Dementia, Diabetes Mellitus, Deep Vein Thrombosis (DVT), Eye Disorder, Hyperlipidemia, Hypertension, Liver Disease, Myocardial Infarction (DE), Renal Disease, Sleep Apnea/CPAP/BIPAP, Thyroid Disorder, Vascular Disorder Additional Past Medical History / Comment(s): Pt recently admitted to [facility] on 06/28/20 with acute hypercarbic respiratory failure d/t CO2 narcosis d/t exacerbation COPD with obesity hypoventilation syndrome, JANES, metabolis encephalopathy d/t CO2 narcosis. 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 Last Myocardial Infarction Date:: 2009 History of Any Multi-Drug Resistant Organisms: None Reported, Unobtainable Past Surgical History: Heart Catheterization With Stent, Hysterectomy, Joint Replacement Additional Past Surgical History / Comment(s): Splenectomy, R AKA, bilateral total knee arthroplasties, R AKA, PCI with stent, "umbrella" device inserted d/t DVTs. Past Anesthesia/Blood Transfusion Reactions: No Reported Reaction, Motion Sickness Date of Last Stent Placement:: 2009 Past Psychological History: Anxiety, Bipolar, Depression Smoking Status: Former smoker Past Alcohol Use History: Unable to Obtain Past Drug Use History: Unable to Obtain - Past Family History Mother Family Medical History: Coronary Artery Disease (CAD), Myocardial Infarction (DE) Additional Family Medical History / Comment(s): Mother of a DE in her 60s. Father Family Medical History: Respiratory Disorder Additional Family Medical History / Comment(s): ETOH abuse, TB Medications and Allergies Home Medications Medication Instructions Recorded Confirmed Type Acetaminophen Tab [Tylenol] 325 mg PO Q6H PRN 06/28/20 10/11/20 History Albuterol Nebulized [Ventolin 2.5 mg INHALATION RT-BID 06/28/20 10/11/20 History Nebulized] Aspirin 81 mg PO DAILY@0800 06/28/20 10/11/20 History Atorvastatin [Lipitor] 40 mg PO HS@199906/28/20 10/11/20 History Ergocalciferol [Vitamin D2 (1250 1,250 mcg PO TU 06/28/20 10/11/20 History Mcg = 43079 Iu)] Escitalopram [Lexapro] 20 mg PO DAILY@0800 06/28/20 10/11/20 History Fluticasone/Salmeterol [Advair Hfa 2 puff INHALATION RT-BID@0800,159906/28/20 10/11/20 History 115-21 Mcg Inhaler] Gemfibrozil [Lopid] 600 mg PO BID@0800,159906/28/20 10/11/20 History Ketoconazole 2% Cream [Nizoral 2%] 1 applic TOPICAL Q12H PRN 06/28/20 10/11/20 History Latanoprost/Pf [Latanoprost 0.005% 1 drop BOTH EYES HS@199906/28/20 10/11/20 History Eye Drop] Losartan [Cozaar] 50 mg PO DAILY@0806/28/20 10/11/20 History QUEtiapine FUMARATE 150 mg PO HS@199906/28/20 10/11/20 History Rivaroxaban [Xarelto] 20 mg PO HS@199906/28/20 10/11/20 History Tamsulosin [Flomax] 0.4 mg PO BID@0800,159906/28/20 10/11/20 History rOPINIRole HCL [Requip] 0.5 mg PO HS@199906/28/20 10/11/20 History sitaGLIPtin PHOSPHATE [Januvia] 50 mg PO DAILY@0800 06/28/20 10/11/20 History Insulin Aspart [NovoLOG Flexpen] 13 units SQ AC-TID 07/10/20 10/11/20 History Insulin Glargine [Lantus Vial] 96 unit SQ HS@199907/10/20 10/11/20 History Primidone [Mysoline] 125 mg PO HS@199907/10/20 10/11/20 History Metoprolol Succinate (ER) [Toprol 100 mg PO BID tab.er.24h 07/16/20 10/11/20 Rx XL] Albuterol Nebulized [Ventolin 2.5 mg INHALATION RT-QID PRN 10/11/20 10/11/20 History Nebulized] Furosemide [Lasix] 40 mg PO BID@0400,1300 10/11/20 10/11/20 History HYDROcodone/APAP 10-325MG [[place] 1 tab PO Q8H 10/11/20 10/11/20 History 10-325] Levothyroxine Sodium [Synthroid] 112 mcg PO DAILY@0500 10/11/20 10/11/20 History Mag Hydrox/Al Hydrox/Simeth 15 ml PO ACHS 10/11/20 10/11/20 History [Maalox] Nitroglycerin Sl Tabs [Nitrostat] 0.4 mg SL Q5M PRN 10/11/20 10/11/20 History Pregabalin [Lyrica] 100 mg PO BID@0800,1600 10/11/20 10/11/20 History amLODIPine [Norvasc] 10 mg PO DAILY@0800 10/11/20 10/11/20 History lamoTRIgine [LaMICtal Xr] 50 mg PO DAILY@0500 10/11/20 10/11/20 History Allergies Allergy/AdvReac Type Severity Reaction Status Date / Time adhesive tape Allergy Unknown Verified 10/11/20 07:41 sertraline [From Zoloft] Allergy Unknown Verified 10/11/20 07:41 vancomycin Allergy Unknown Verified 10/11/20 07:41 birds Allergy Unknown Uncoded 10/11/20 07:41 Physical Exam Osteopathic Statement: *. No significant issues noted on an osteopathic structural exam other than those noted in the History and Physical/Consult. Vitals: Vital Signs Temp Pulse Resp BP Pulse Ox 10/11/20 08:16 74 10/11/20 08:08 76 18 125/66 92 L 10/11/20 08:06 74 10/11/20 07:54 90 22 137/66 96 10/11/20 06:28 101.6 F H 87 20 158/94 91 L 10/11/20 06:17 85 10/11/20 05:57 82 10/11/20 05:44 103 F H 95 20 112/98 82 L Intake and Output 10/10/20 10/11/20 10/11/20 22:59 06:59 14:59 Other: Weight 136.078 kg Lethargic and somnolent, does arouse, currently on BiPAP. HEENT examination is grossly unremarkable. Neck supple. Full range of motion. No adenopathy thyromegaly or neck vein distention. Cardiovascular examination reveals regular rhythm rate. S1-S2 normal. No S3 or S4. No discernible murmur noted. Heart sounds are very distant. Heart rate 74 bpm. Lungs reveal bilateral rhonchi. No wheezes. No crackles. Breath sounds equal. She does not take deep breaths. Abdomen is grossly obese. No bowel sounds. No masses. Extremities reveal a right uaeho-zbp-[id number] amputation. The left lower extremity shows some changes of chronic venous stasis and hyperpigmentation. Minimal edema of the left leg. Skin is without rash or lesion. Neurologic examination is difficult to assess given her current somnolence. She does move all 4 extremities. She does arouse. Results - Laboratory Findings CBC and BMP: 10/11/20 05:56 10/11/20 05:56 PT/INR, D-dimer PT 11.0 sec (9.0-12.0) 10/11/20 05:56 INR 1.0 (<1.2) 10/11/20 05:56 Abnormal lab findings: Abnormal Labs 10/11/20 10/11/20 10/11/20 05:56 05:56 05:56 WBC 14.8 H MCV 103.4 H Neutrophils # 10.8 H Potassium 5.2 H Carbon Dioxide 32 H BUN 50 H Creatinine 1.32 H Glucose 124 H Calcium 10.7 H Magnesium 2.8 H AST 43 H Alkaline Phosphatase 191 H Ammonia Lactate Dehydrogenase 926 H C-Reactive Protein 3.4 H Total Protein 8.3 H TSH 91.900 H Urine Appearance Cloudy H Urine Protein 3+ H Urine Blood Large H Urine Nitrite Positive H Ur Leukocyte Esterase Large H Urine RBC >182 H Urine WBC >182 H Urine WBC Clumps Many H Urine Bacteria Moderate H Hyaline Casts 5 H 10/11/20 05:56 WBC MCV Neutrophils # Potassium Carbon Dioxide BUN Creatinine Glucose Calcium Magnesium AST Alkaline Phosphatase Ammonia 45 H Lactate Dehydrogenase C-Reactive Protein Total Protein TSH Urine Appearance Urine Protein Urine Blood Urine Nitrite Ur Leukocyte Esterase Urine RBC Urine WBC Urine WBC Clumps Urine Bacteria Hyaline Casts - Diagnostic Findings Chest x-ray: image reviewed Assessment and Plan Assessment: Mental status changes, secondary to acute on chronic hypoxemic and hypercapnic respiratory failure, likely multifactorial, in part related to COPD, CHF, possible pneumonia, possible underlying sepsis, obstructive sleep apnea syndrome, and Pickwickian syndrome. Morbid obesity. Profound hypothyroidism, rule out myxedema coma. History of COPD. History of coronary artery disease. History of CHF. History of CVA. History of dementia. History of diabetes mellitus. History of deep venous thrombosis. History of hyperlipidemia. History of hypertension. Prior history of myocardial infarction. Stage III chronic kidney disease. Peripheral artery disease. Status post right [id number] amputation. Multiple other medical problems and comorbidities. Plan: Plan dated 10/11/2020. The patient currently is on BiPAP. Her FiO2 is 40%. She's getting saline at 1 30 mL an hour and IV Levaquin. She also received some Rocephin. The patient is profoundly hypothyroid. We added 150 g of Synthroid IV. That will start today. Additional recommendations and suggestions are forthcoming. All narcotics, sedatives, hypnotics, and tranquilizers should be discontinued. The patient be admitted to the intensive care unit. I attempted to call both daughters. One did call me back. She confirms the fact that nothing heroic should be done. Additional recommendations and suggestions are forthcoming. We will continue to follow make recommendations where appropriate. Time with Patient: Greater than 30
[2020-10-11 08:37] LABS: Glucose,Whole Blood 125 mg/dL (75-99)
[2020-10-11] MEDS ORDERED: LEVOTHYROXINE IVP 100 MCG/5 ML VIAL IV SCH (09:00)
[2020-10-11] MEDS ORDERED: ACETAMINOPHEN IV (For NPO) 1,000 MG in EMPTY BAG 1 BAG IVPB PRN (12:00)
[2020-10-11] MEDS: methylPREDNISolone SOD SUCCI 125 MG/2 ML VIAL IV SCH ×3 (12:18→23:45)
--- NOTE | 2020-10-11 12:53 | P.HPIM ---
History of Present Illness H&P Date: 10/11/20 H&P Date: 06/28/20 HISTORY OF PRESENT ILLNESS: This is a 70-year-old female who I follow at [facility] with a previous medical history significant for hypertension and hypertensive cardiovascular disease, hyperlipidemia, diabetes mellitus type 2 with diabetic polyneuropathy, hypothyroidism, CAD post PCI and stent placement, essential tremor, restless leg syndrome, bipolar disorder, recurrent DVT, peripheral arterial occlusive disease, with a recent blister formation to the left kirk was investigated as an outpatient and she had an arterial Doppler of the left lower extremity that did show evidence of moderate to severe PAD, and she was scheduled for CT angiography of the left lower extremity for further evaluation vascular surgery consultation, along with MRI of the left lower extremity to rule out any osteomyelitis of the kirk bone, patient was in her usual state of health about yesterday at around 5:00 AM today when the nurse came to check on the patient and she was completely out of it, patient was stuporous non- arousable, her eyes were bloodshot, and the patient was confused she was directed to go to the emergency department at [facility] she was found to have significant urinary tract infection, with leukocytosis, she also was quite drowsy she was given Levaquin 750 mg IV piggyback 1, after obtaining urine culture and blood culture, she was started on IV fluid resuscitation the form of normal saline, she did not have any blood gases, she was seen in consultation by pulmonary medicine, she was placed on BiPAP, she was admitted to the ICU, she is a bit more arousable now her daughter and her grandson was at the bedside and they would've difficulty about her current condition. REVIEW OF SYSTEMS: Constitutional: No documented fever, no chills, no night sweats. No weight change. Positive for weakness, positive for fatigue and lethargy. HEENT: No headache. No blurred vision or double vision, no loss of vision. No loss of Hearing, no ringing in the ears, no dizziness. No nasal drainage or congestion. No epistaxis. No sore throat. Lungs: No shortness of breath, no cough, no sputum production. No wheezing. Reports dyspnea with activity. Cardiovascular: No chest pain, positive for left lower extremity edema. No palpitations. No paroxysmal nocturnal dyspnea. No orthopnea. No lightheadedness or dizziness. No syncopal episodes. Abdominal: Reports no abdominal pain. No nausea, vomiting. No diarrhea. No constipation. No bloody or tarry stools reports loss of appetite. Genitourinary: No dysuria, increased frequency, urgency. No urinary retention. Musculoskeletal: positive for myalgias. No muscle weakness, positive for gait dysfunction, positive for frequent falls, positive for left leg pain Integumentary: no lesions. No rash or pruritus. No unusual bruising. No change in hair or nails. Neurologic: No aphasia. No facial droop. stuporous but arousable. No head injury. No headache. No paralysis, positive for parasthesia in the left leg Psychiatric: Positive for anxiety and depression. Endocrine: hyperglycemia. PAST MEDICAL HISTORY: Hypertension and hypertensive cardiovascular disease. Hyperlipidemia. Diabetes mellitus type 2. Diabetic polyneuropathy. Obesity with obstructive sleep apnea and obesity hypoventilation syndrome Severe PAD status post right phscp-ztt-mxpf amputation. Chronic pain syndrome Chronic low back pain. Bipolar disorder. Anxiety. Hypothyroidism. CAD post PCI. History of cardiac arrest. Recurrent DVT. Essential tremor. Restless leg syndrome. PAST SURGICAL HISTORY: Left total knee arthroplasty. Bilateral cataract surgery. Splenectomy. Tonsillectomy and adenoidectomy. Right bcrlq-bmi-qcpt amputation. Total abdominal hysterectomy and bilateral salpingo-oophorectomy. IVC filter placement. Left heart catheterization with PCI. SOCIAL HISTORY: patient used to smoke about a pack every day for 30 years, quit in 2018, she denies any alcohol ingestion, no drugs or abuse, currently resides at [facility]. FAMILY HISTORY: Mother at age 72 from myocardial infarction, father at age of 83 from August to brain injury, patient had one brother who from acute renal failure diabetes and sleep apnea, she had one sister who from breast cancer palpitation, patient has one son and 2 daughters no major medical problems. PHYSICAL EXAMINATION: General: 70-year-old who is lying down in bed appears stuporous but arousable. HEENT: Head is atraumatic, normocephalic, pupils were equal round reactive to light and recommendation, extraocular muscle movement were intact, sclera nonicteric, conjunctivae were pale, mucous membranes of the mouth are somewhat dry. Neck: Supple, no JVP, decreased carotid upstroke bilaterally, no lymphadenopathy. Chest: Decreased breath sounds at the bases, few rhonchi, minimal expiratory wheezes, no chest wall tenderness, no intercostal retractions. Heart: First heart sound is normal, second heart sounds normal, there is systolic ejection murmur 2/6 located in the left sternal border. , Abdomen: Soft, nontender, nondistended, positive bowel sounds, no hepatosplenomegaly. Extremities: There is right venqe-pao-bttw amputation, left lower extremity with chronic skin changes of the left kirk, dorsalis pedis could not be palpated. Neurologic examination: Patient is awake alert and oriented X1, cranial nerves II-12 appear grossly intact, muscle power were 3 out of 5 in upper extremities and 1 out of 5 in the left lower extremity, deep tendon reflexes were depressed. ASSESSMENT AND PLAN: 1. Acute hypercarbic respiratory failure due to CO2 narcosis due to acute exacerbation of COPD/obstructive sleep apnea with obesity hypoventilation syndrome. Continue patient on BiPAP, continue patient on nebulized treatment in the form of DuoNeb 3 mg nebulization 4 times every day, continue oxygen support, Pulmicort consultation, continue with current ICU management 2. Acute kidney injury secondary to acute tubular necrosis and aggressive diuresis. Continue IV fluid resuscitation the form of normal saline at 75 mL an hour discontinue diuretics. 3. Metabolic encephalopathy due to CO2 narcosis and elevated Ammonia levels Continue BiPAP, continue bronchodilator, add Lactulose 20 gr orally bid. 4. Hypertension and hypertensive cardiovascular disease. We will resume the patient metoprolol ER 50 mg orally once every day as well as losartan 50 mg orally once every day, monitor the patient blood pressure very closely . 5. Hyperlipidemia. Continue low-cholesterol diet and atorvastatin 40 mg orally once every day, discontinue gemfibrozil. 6. Diabetes mellitus type 2 insulin requiring. Resume Lantus 96 units at bedtime along with the Humalog 13 units before each meal along with a sliding scale insulin, continue Januvia 50 mg orally once every day. 7. Diabetic polyneuropathy. . Continue Lyrica 100 mg orally twice every day. 8. Obesity with obstructive sleep apnea and obesity hypoventilation syndrome continue with current BiPAP. 9. 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 Continue current pain management. hold off [place] and baclofen. 10. Bipolar disorder. Continue Lexapro 20 mg orally once every day,decrease Seroquel to 150 mg orally at bedtime 11. Severe PAD status post a recent arterial Doppler of the left lower extremity that document and moderate to severe disease has been under the care of . 12. Urinary tract infection with sepsis. Continue IV fluid resuscitation, blood culture, urine culture, continue with Levaquin 750 mg IVPB Q 48 hours. 13. hypothyroidism. Continue patient on Synthroid and increase the dose to 150 mcg orally daily. 14. restless leg syndrome. Continue Requip 0.5 mg at bedtime. 15. Essential tremor. hold off Primidone 16. Vitamin D deficiency. Patient has been on vitamin D 50,000 units once every week. 17. GERD. Continue omeprazole 20 mg orally once every day. 18. Glaucoma. Continue Xalatan 1 drop in both eyes at bedtime. 19. Recurrent DVT. Continue Xarelto 15 mg orally once every day. 20. GI prophylaxis. Continue PPI. 21. DVT prophylaxis. Continue Xarelto 15 mg once every day. 22. History of CAD with cardiac arrest status post left heart catheterization with PCI. Continue patient on metoprolol ER 50 mg orally once every day, continue losartan 50 mg orally once every day, continue Lipitor 40 mg orally once every day, aspirin 81 mg once every day. 23. Admit to inpatient. Estimated length of stay 2 midnights. 24. Patient is full code. 25. Overall prognosis is guarded. Past Medical History Past Medical History: Asthma, Coronary Artery Disease (CAD), Heart Failure, COPD, CVA/TIA, Dementia, Diabetes Mellitus, Deep Vein Thrombosis (DVT), Eye Disorder, Hyperlipidemia, Hypertension, Liver Disease, Myocardial Infarction (NM), Renal Disease, Sleep Apnea/CPAP/BIPAP, Thyroid Disorder, Vascular Disorder Additional Past Medical History / Comment(s): Pt recently admitted to [facility] on 06/28/20 with acute hypercarbic respiratory failure d/t CO2 narcosis d/t exacerbation COPD with obesity hypoventilation syndrome, JANES, metabolis encephalopathy d/t CO2 narcosis. Other hx: 2010 NM with cardiac arrest, pt's akshat states memory issues ever since which have been worsening, chronic hypoxic respiratory failure with oxygen during day, COLT with bipap at night, IDDM with polyneuropathy, CKD stage III, anemia, splenomegaly/SPLEENECTOMY, es sential tremors, CVA-akshat describes as a small/mini stroke, severe PAD, L kirk blister/recurrent cellulitis, chronic venous stasis, chronic low back pain/spondylosis, fatty liver per past medical record, occasional incontinence, hypothyroid, R total knee with post wound leading to R AKA. Last Myocardial Infarction Date:: 2009 History of Any Multi-Drug Resistant Organisms: None Reported, Unobtainable Past Surgical History: Heart Catheterization With Stent, Hysterectomy, Joint Replacement Additional Past Surgical History / Comment(s): Splenectomy, R AKA, bilateral total knee arthroplasties, R AKA, PCI with stent, "umbrella" device inserted d/t DVTs. Past Anesthesia/Blood Transfusion Reactions: No Reported Reaction, Motion Sickness Date of Last Stent Placement:: 2009 Past Psychological History: Anxiety, Bipolar, Depression Smoking Status: Former smoker Past Alcohol Use History: Unable to Obtain Past Drug Use History: Unable to Obtain - Past Family History Mother Family Medical History: Coronary Artery Disease (CAD), Myocardial Infarction (NM) Additional Family Medical History / Comment(s): Mother of a NM in her 60s. Father Family Medical History: Respiratory Disorder Additional Family Medical History / Comment(s): ETOH abuse, TB Medications and Allergies Home Medications Medication Instructions Recorded Confirmed Type Acetaminophen Tab [Tylenol] 325 mg PO Q6H PRN 06/28/20 10/11/20 History Albuterol Nebulized [Ventolin 2.5 mg INHALATION RT-BID 06/28/20 10/11/20 History Nebulized] Aspirin 81 mg PO DAILY@0800 06/28/20 10/11/20 History Atorvastatin [Lipitor] 40 mg PO HS@199906/28/20 10/11/20 History Ergocalciferol [Vitamin D2 (1250 1,250 mcg PO TU 06/28/20 10/11/20 History Mcg = 65731 Iu)] Escitalopram [Lexapro] 20 mg PO DAILY@0800 06/28/20 10/11/20 History Fluticasone/Salmeterol [Advair Hfa 2 puff INHALATION RT-BID@0800,1600 06/28/20 10/11/20 History 115-21 Mcg Inhaler] Gemfibrozil [Lopid] 600 mg PO BID@0800,1600 06/28/20 10/11/20 History Ketoconazole 2% Cream [Nizoral 2%] 1 applic TOPICAL Q12H PRN 06/28/20 10/11/20 History Latanoprost/Pf [Latanoprost 0.005% 1 drop BOTH EYES HS@199906/28/20 10/11/20 History Eye Drop] Losartan [Cozaar] 50 mg PO DAILY@0800 06/28/20 10/11/20 History QUEtiapine FUMARATE 150 mg PO HS@199906/28/20 10/11/20 History Rivaroxaban [Xarelto] 20 mg PO HS@199906/28/20 10/11/20 History Tamsulosin [Flomax] 0.4 mg PO BID@0800,1600 06/28/20 10/11/20 History rOPINIRole HCL [Requip] 0.5 mg PO HS@199906/28/20 10/11/20 History sitaGLIPtin PHOSPHATE [Januvia] 50 mg PO DAILY@0800 06/28/20 10/11/20 History Insulin Aspart [NovoLOG Flexpen] 13 units SQ AC-TID 07/10/20 10/11/20 History Insulin Glargine [Lantus Vial] 96 unit SQ HS@199907/10/20 10/11/20 History Primidone [Mysoline] 125 mg PO HS@199907/10/20 10/11/20 History Metoprolol Succinate (ER) [Toprol 100 mg PO BID tab.er.24h 07/16/20 10/11/20 Rx XL] Albuterol Nebulized [Ventolin 2.5 mg INHALATION RT-QID PRN 10/11/20 10/11/20 History Nebulized] Furosemide [Lasix] 40 mg PO BID@0400,1300 10/11/20 10/11/20 History HYDROcodone/APAP 10-325MG [[place] 1 tab PO Q8H 10/11/20 10/11/20 History 10-325] Levothyroxine Sodium [Synthroid] 112 mcg PO DAILY@0500 10/11/20 10/11/20 History Mag Hydrox/Al Hydrox/Simeth 15 ml PO ACHS 10/11/20 10/11/20 History [Maalox] Nitroglycerin Sl Tabs [Nitrostat] 0.4 mg SL Q5M PRN 10/11/20 10/11/20 History Pregabalin [Lyrica] 100 mg PO BID@0800,1600 10/11/20 10/11/20 History amLODIPine [Norvasc] 10 mg PO DAILY@0800 10/11/20 10/11/20 History lamoTRIgine [LaMICtal Xr] 50 mg PO DAILY@0500 10/11/20 10/11/20 History Allergies Allergy/AdvReac Type Severity Reaction Status Date / Time adhesive tape Allergy Unknown Verified 10/11/20 07:41 sertraline [From Zoloft] Allergy Unknown Verified 10/11/20 07:41 vancomycin Allergy Unknown Verified 10/11/20 07:41 birds Allergy Unknown Uncoded 10/11/20 07:41 Physical Exam Vitals: Vital Signs Temp Pulse Resp BP Pulse Ox 10/11/20 12:27 68 10/11/20 12:13 68 10/11/20 09:30 66 12 96/41 86 L 10/11/20 09:00 100.5 F H 66 10 L 111/37 87 L 10/11/20 08:30 70 21 10/11/20 08:28 20 10/11/20 08:16 74 10/11/20 08:08 76 18 125/66 92 L 10/11/20 08:06 74 10/11/20 07:54 90 22 137/66 96 10/11/20 06:28 101.6 F H 87 20 158/94 91 L 10/11/20 06:17 85 10/11/20 05:57 82 10/11/20 05:44 103 F H 95 20 112/98 82 L Intake and Output 10/10/20 10/11/20 10/11/20 22:59 06:59 14:59 Intake Total 280 Output Total 50 Balance 230 Intake: Intake, IV Titration 280 Amount Levofloxacin 750Mg-D5w 150 Pmx 750 mg In Dextrose/ Water 1 150ml.bag @ 100 mls/hr IVPB Q48H ANNA Rx#: [id number] Sodium Chloride 0.9% 1, 130 000 ml @ 130 mls/hr IV . Q7H42M ANNA Rx#:[id number] Output: Urine 50 Other: Weight 136.078 kg Results CBC & Chem 7: 10/11/20 05:56 10/11/20 05:56 Labs: Abnormal Lab Results - Last 24 Hours (Table) 10/11/20 10/11/20 10/11/20 Range/Units 05:56 05:56 05:56 WBC 14.8 H (3.8-10.6) k/uL MCV 103.4 H (80.0-100.0) fL Neutrophils # 10.8 H (1.3-7.7) k/uL Potassium 5.2 H (3.5-5.1) mmol/L Carbon Dioxide 32 H (22-30) mmol/L BUN 50 H (7-17) mg/dL Creatinine 1.32 H (0.52-1.04) mg/dL Glucose 124 H (74-99) mg/dL POC Glucose (mg/dL) (75-99) mg/dL Calcium 10.7 H (8.4-10.2) mg/dL Magnesium 2.8 H (1.6-2.3) mg/dL AST 43 H (14-36) U/L Alkaline Phosphatase 191 H (38-126) U/L Ammonia (<30) umol/L Lactate Dehydrogenase 926 H (313-618) U/L C-Reactive Protein 3.4 H (<1.0) mg/dL Total Protein 8.3 H (6.3-8.2) g/dL TSH 91.900 H (0.465-4.680) mIU/L Urine Appearance Cloudy H (Clear) Urine Protein 3+ H (Negative) Urine Blood Large H (Negative) Urine Nitrite Positive H (Negative) Ur Leukocyte Esterase Large H (Negative) Urine RBC >182 H (0-5) /hpf Urine WBC >182 H (0-5) /hpf Urine WBC Clumps Many H (None) /hpf Urine Bacteria Moderate H (None) /hpf Hyaline Casts 5 H (0-2) /lpf 10/11/20 10/11/20 Range/Units 05:56 08:25 WBC (3.8-10.6) k/uL MCV (80.0-100.0) fL Neutrophils # (1.3-7.7) k/uL Potassium (3.5-5.1) mmol/L Carbon Dioxide (22-30) mmol/L BUN (7-17) mg/dL Creatinine (0.52-1.04) mg/dL Glucose (74-99) mg/dL POC Glucose (mg/dL) 125 H (75-99) mg/dL Calcium (8.4-10.2) mg/dL Magnesium (1.6-2.3) mg/dL AST (14-36) U/L Alkaline Phosphatase (38-126) U/L Ammonia 45 H (<30) umol/L Lactate Dehydrogenase (313-618) U/L C-Reactive Protein (<1.0) mg/dL Total Protein (6.3-8.2) g/dL TSH (0.465-4.680) mIU/L Urine Appearance (Clear) Urine Protein (Negative) Urine Blood (Negative) Urine Nitrite (Negative) Ur Leukocyte Esterase (Negative) Urine RBC (0-5) /hpf Urine WBC (0-5) /hpf Urine WBC Clumps (None) /hpf Urine Bacteria (None) /hpf Hyaline Casts (0-2) /lpf Microbiology - Last 24 Hours (Table) 10/11/20 05:56 Urine Culture - Preliminary Urine,Voided
[2020-10-11] MEDS ORDERED: ALBUTEROL NEBULIZED 2.5 MG/3 ML INHALATION PRN (12:57)
[2020-10-11] MEDS ORDERED: SYMBICORT 160-4.5 MCG INHALER INHALATION SCH (16:00)
[2020-10-11] MEDS: TAMSULOSIN 0.4 MG CAP.ER.24H PO SCH (18:25)
[2020-10-11] MEDS: SYMBICORT 160-4.5 MCG INHALER INHALATION SCH (19:26)
[2020-10-11] MEDS: RIVAROXABAN 20 MG TAB PO SCH (20:47)
[2020-10-11] MEDS: HYDROcodone/APAP 5-325MG 1 EACH TAB PO PRN (20:47)
[2020-10-11] MEDS: QUEtiapine 50 MG TAB PO SCH (20:48)
[2020-10-11] MEDS: ATORVASTATIN 40 MG TAB PO SCH (20:48)
[2020-10-11] MEDS: METOPROLOL SUCCINATE (ER) 100 MG TAB.ER.24H PO SCH (20:48)
[2020-10-11] MEDS: LATANOPROST 0.005% OPHTH DROPS 2.5 ML BTL BOTH EYES SCH (20:49)
[2020-10-11 21:09] LABS: Glucose,Whole Blood 131 mg/dL (75-99)
[2020-10-11] MEDS: INSULIN DETEMIR (LEVEMIR) 100 UNIT/ML SYR SQ SCH (22:26)
[2020-10-11] MEDS: INSULIN ASPART (NovoLOG) 100 UNIT/ML VIAL SQ SCH (22:29)
[2020-10-11] MEDS ORDERED: ACETAMINOPHEN TAB 325 MG TAB PO PRN (23:09)
[2020-10-12] MEDS: SODIUM CHLORIDE 0.9% 1,000 ML IV SCH ×2 (02:41→06:43)
[2020-10-12 04:06] LABS: Albumin 3.9 g/dL (3.5-5.0); Calcium 9.9 mg/dL (8.4-10.2); Magnesium 2.6 mg/dL (1.6-2.3); Phosphorus 3.8 mg/dL (2.5-4.5); Potassium 5.4 mmol/L (3.5-5.1); Total Bilirubin 0.2 mg/dL (0.2-1.3); Total Protein 7.4 g/dL (6.3-8.2)
[2020-10-12 05:07] LABS: HCT 39.9 % (34.0-46.0); Hypochromasia Slight; MCHC 32.6 g/dL (31.0-37.0); MCV 104.2 fL (80.0-100.0); Macrocytosis Moderate; Mean Platelet Volume 11.3; Platelet Count 212 k/uL (150-450); RBC 3.82 m/uL (3.80-5.40); RDW 15.1 % (11.5-15.5); WBC 18.5 k/uL (3.8-10.6)
[2020-10-12] MEDS: HYDROcodone/APAP 5-325MG 1 EACH TAB PO PRN ×4 (05:16→23:55)
[2020-10-12] MEDS: methylPREDNISolone SOD SUCCI 125 MG/2 ML VIAL IV SCH ×4 (05:23→23:05)
[2020-10-12] MEDS: LEVOTHYROXINE 75 MCG TAB PO SCH (05:23)
[2020-10-12 05:49] LABS: Band Neutrophils % 10 %; Howell-Jolly Bodies Present; Large Platelets Present; Lymphocytes # (M) 2.96 k/uL (1.0-4.8); Monocytes # (M) 0.74 k/uL (0-1.0); Neutrophils % (M) 70 %; Nucleated Red Blood Cells 0 /100 WBC (0-0); Total Cells Counted 100
[2020-10-12 05:50] LABS: Anisocytosis (M) Present; Polychromasia Present
[2020-10-12] MEDS: ERTAPENEM 1 GM in SODIUM CHLORIDE 0.9% 50 ML IVPB SCH (06:42)
[2020-10-12 06:57] LABS: Glucose,Whole Blood 243 mg/dL (75-99)
[2020-10-12] MEDS: INSULIN ASPART (NovoLOG) 100 UNIT/ML VIAL SQ SCH ×5 (07:02→20:22)
[2020-10-12] MEDS: IPRATROPIUM-ALBUTEROL 3 ML NEB INHALATION SCH ×4 (08:01→19:52)
[2020-10-12] MEDS: SYMBICORT 160-4.5 MCG INHALER INHALATION SCH ×2 (08:02→19:52)
[2020-10-12] MEDS: amLODIPine 10 MG TAB PO SCH (08:10)
[2020-10-12] MEDS: METOPROLOL SUCCINATE (ER) 100 MG TAB.ER.24H PO SCH ×2 (08:10→20:21)
[2020-10-12] MEDS: ASPIRIN 81 MG PO SCH (08:10)
[2020-10-12] MEDS: LOSARTAN 50 MG TAB PO SCH (08:10)
[2020-10-12] MEDS: LINAGLIPTIN 5 MG TABLET PO SCH (08:10)
[2020-10-12] MEDS: TAMSULOSIN 0.4 MG CAP.ER.24H PO SCH ×2 (08:10→16:39)
[2020-10-12] MEDS: lamoTRIgine 25 MG TAB PO SCH ×2 (08:11→20:21)
[2020-10-12] MEDS: ESCITALOPRAM 20 MG TAB PO SCH (08:11)
--- NOTE | 2020-10-12 08:33 | XR ---
EXAMINATION TYPE: XR chest 1V DATE OF EXAM: 10/12/2020 COMPARISON: Multiple prior radiographs HISTORY: BiPAP TECHNIQUE: Single frontal view of the chest is obtained. FINDINGS: Examination limited by underpenetration and wires overlying the patient. The heart is enlarged, stable. Pulmonary vasculature is within normal limits. Opacification at the left base. No large pneumothorax. IMPRESSION: Stable cardiomegaly with left effusion and adjacent atelectasis/airspace disease
[2020-10-12 11:14] LABS: Glucose,Whole Blood 224 mg/dL (75-99)
--- NOTE | 2020-10-12 11:34 | P.PN ---
Subjective Progress Note Date: 10/12/20 70-year-old female who resides at one of the local nursing homes. The patient apparently presents to the emergency department with mental status changes. The patient was not able to provide any history. She was evaluated by the ER physician was thought to have a urinary tract infection, possible underlying sepsis. He call me about the possibility of an ICU admission. Patient's currently on BiPAP with settings of IPAP 12, EPAP 6, and 40%. She's getting saline at 130 mL an hour, and IV Levaquin. She has a history of previous right ktsez-xmu-yplg amputation. I saw her last in June for a episode of acute hypoxemic respiratory failure, secondary to COPD exacerbation, CHF, and sleep apnea. Currently, white count 14.8, hemoglobin 13.3, hematocrit 40.6, and platelet count 259,000. PT, INR, and PTT are normal. Sodium 141, potassium 5.2, chlorides 98, CO2 32, anion gap 11, BUN 50, and creatinine 1.32. Lactic acid 1.3 calcium 10.7, ammonia 45, LDH 926, C-reactive protein 3.4, and N- terminal proBNP 991, TSH 92, and urine was light orange color, cloudy, 3+ protein, large blood, positive for both leukocyte esterase and nitrite, with greater than 182 WBCs, and moderate bacteria. Should it also had many white blood cell clumps. Chest x-ray showed cardiomegaly, with pulmonary vascular congestion, and possible underlying infiltrates, which could be on the basis of atelectasis and/or pneumonia. Chest x-ray itself was very difficult to evaluate given her body habitus. The patient is seen today 10/12/2020 in follow-up in the intensive care unit. She is currently up in a chair at the bedside. Awake and alert in no acute distress. She was on BiPAP last night 01/12 and 50% FiO2. She is currently on 5 L nasal cannula to maintain O2 saturation in the 90s. She has 0.9 normal sinus 130 ML's per hour. Only complaint this morning is that of back pain which is chronic. Blood cultures positive for E. coli. Urine culture pending. White count 18.5. Hemoglobin 13.0. Sodium 140. Potassium 5.4. Creatinine 1.26. Glucose 198. AST 47. ALT 20. Chest x-ray reveals stable cardiomegaly with left effusion and adjacent atelectasis. She remains on bronchodilators, IV Solu-Medrol. Antibiotics in the form of ertapenem. Anticoagulated with Xarelto. Objective - Vital Signs Vital signs: Vital Signs Temp 98.6 F 10/12/20 08:00 Pulse 72 10/12/20 10:00 Resp 13 10/12/20 10:00 BP 145/65 10/12/20 10:00 Pulse Ox 92 L 10/12/20 10:00 Intake & Output 10/11/20 10/12/20 10/12/20 18:59 06:59 18:59 Intake Total 1450 1680 550 Output Total 675 1140 360 Balance 775 540 190 Weight 136.078 kg 138 kg Intake: IV 1430 190 Sodium Chloride 0.9% 1, 1430 190 000 ml @ 130 mls/hr IV . Q7H42M ANNA Rx#:[id number] Intake, IV Titration 1450 Amount Levofloxacin 750Mg-D5w 150 Pmx 750 mg In Dextrose/ Water 1 150ml.bag @ 100 mls/hr IVPB Q48H ANNA Rx#: [id number] Sodium Chloride 0.9% 1, 1300 000 ml @ 130 mls/hr IV . Q7H42M ANNA Rx#:[id number] Oral 250 360 Output: Urine 675 1140 360 Other: Voiding Method Indwelling Catheter Indwelling Catheter Indwelling Catheter - Exam Awake, alert, 70-year-old female patient, up in a chair at the bedside, on 5 L nasal cannula alternating with BiPAP . HEENT examination is grossly unremarkable. Neck supple. Full range of motion. No adenopathy thyromegaly or neck vein distention. Cardiovascular examination reveals regular rhythm rate. S1-S2 normal. No S3 or S4. No discernible murmur noted. Heart sounds are very distant. Heart rate 74 bpm. Lungs reveal bilateral rhonchi. Crackles in the left lung base. Breath sounds equal. Abdomen is grossly obese. No bowel sounds. No masses. Extremities reveal a right usmza-luf-uway amputation. The left lower extremity shows some changes of chronic venous stasis and hyperpigmentation. Minimal edema of the left leg. Skin is without rash or lesion. Neurologic examination nonfocal. Alert and oriented. - Labs CBC & Chem 7: 10/12/20 03:15 10/12/20 03:15 Labs: Abnormal Lab Results - Last 24 Hours (Table) 10/11/20 10/12/20 10/12/20 Range/Units 21:06 03:15 03:15 WBC 18.5 H (3.8-10.6) k/uL MCV 104.2 H (80.0-100.0) fL Neutrophils # (Manual) 14.80 H (1.3-7.7) k/uL Potassium 5.4 H (3.5-5.1) mmol/L BUN 42 H (7-17) mg/dL Creatinine 1.26 H (0.52-1.04) mg/dL Glucose 198 H (74-99) mg/dL POC Glucose (mg/dL) 131 H (75-99) mg/dL Magnesium 2.6 H (1.6-2.3) mg/dL AST 47 H (14-36) U/L Alkaline Phosphatase 146 H (38-126) U/L 10/12/20 10/12/20 Range/Units 06:56 11:13 WBC (3.8-10.6) k/uL MCV (80.0-100.0) fL Neutrophils # (Manual) (1.3-7.7) k/uL Potassium (3.5-5.1) mmol/L BUN (7-17) mg/dL Creatinine (0.52-1.04) mg/dL Glucose (74-99) mg/dL POC Glucose (mg/dL) 243 H 224 H (75-99) mg/dL Magnesium (1.6-2.3) mg/dL AST (14-36) U/L Alkaline Phosphatase (38-126) U/L Microbiology - Last 24 Hours (Table) 10/11/20 05:52 Blood Culture Gram Stain - Preliminary Blood Blood Culture - Preliminary Gram Neg Bacilli 10/11/20 19:00 Blood Culture Gram Stain - Preliminary Blood Blood Culture - Preliminary Escherichia coli 10/11/20 05:45 Blood Culture - Final Blood 10/11/20 06:00 Blood Culture - Final Blood 10/11/20 05:56 Urine Culture - Preliminary Urine,Voided Assessment and Plan Assessment: 1 Altered mental status, secondary to acute on chronic hypoxemic and hypercapnic respiratory failure, likely multifactorial, in part related to COPD, CHF, possible pneumonia, possible underlying sepsis, obstructive sleep apnea syndrome, and Pickwickian syndrome. Placed on BiPAP overnight. Today awake and alert. 2 Bacteremia secondary to E. coli. Currently on ertapenem 3 Profound hypothyroidism, rule out myxedema coma. 4 History of COPD. 5 History of coronary artery disease. 6 History of CHF. 7 History of CVA. 8 History of dementia. 9 History of diabetes mellitus. 10 History of deep venous thrombosis. 11 History of hyperlipidemia. 12 History of hypertension. 13 Prior history of myocardial infarction. 14 Stage III chronic kidney disease. 15 Peripheral artery disease. 16 Status post right tscth-udc-uwrj amputation. 17 Morbid obesity. 18 Multiple other medical problems and comorbidities. Plan: The patient was seen and evaluated by Dr. Otero Much more awake and alert today Stable for transfer out of the ICU Remains on 5 L nasal cannula Utilize BiPAP 12/6 and 50% at night and while napping Remains on ertapenem for bacteremia We will continue to follow I, the cosigning physician, performed a history & physical examination of the patient. Lungs sounds scattered rhonchi, crackles in the left base. Maintaining good O2 saturations in the 90s on 5 L nasal cannula alternating with BiPAP 12/6 and 50% FiO2. I discussed the assessment and plan of care with my nurse practitioner, Danay Meeks. I attest to the above note as dictated by her.
--- NOTE | 2020-10-12 13:10 | P.PN ---
Subjective Progress Note Date: 10/12/20 HISTORY OF PRESENT ILLNESS: This is a 70-year-old female who I follow at [facility] with a p revious medical history significant for hypertension and hypertensive cardiovascular disease, hyperlipidemia, diabetes mellitus type 2 with diabetic polyneuropathy, hypothyroidism, CAD post PCI and stent placement, essential tremor, restless leg syndrome, bipolar disorder, recurrent DVT, peripheral arterial occlusive disease, with a recent blister formation to the left kirk was investigated as an outpatient and she had an arterial Doppler of the left lower extremity that did show evidence of moderate to severe PAD, and she was scheduled for CT angiography of the left lower extremity for further evaluation vascular surgery consultation, along with MRI of the left lower extremity to rule out any osteomyelitis of the kirk bone, patient was in her usual state of health about yesterday at around 5:00 AM today when the nurse came to check on the patient and she was completely out of it, patient was stuporous non- arousable, her eyes were bloodshot, and the patient was confused she was direct ed to go to the emergency department at [facility] she was found to have significant urinary tract infection, with leukocytosis, she also was quite drowsy she was given Levaquin 750 mg IV piggyback 1, after obtaining urine culture and blood culture, she was started on IV fluid resuscitation the form of normal saline, she did not have any blood gases, she was seen in consultation by pulmonary medicine, she was placed on BiPAP, she was admitted to the ICU, she is a bit more arousable now her daughter and her grandson was at the bedside and they would've difficulty about her current condition. 10/12: Today the patient is sitting up in a chair she is more awake and more alert, she is complaining of increased in the lower back as well as both hips, she is asking to increase her [place] to 7.5/325 mg 4 times every day, she was kept off baclofen, she was kept off primidone, and will continue as such, physical therapy evaluation, patient would be moved outside the ICU, she will be maintained on IV anabiotic, until the final result of the cultures are back patient does appear to have a bacteremia with E. coli in the blood likely ESBL she was switched from Levaquin to Invanz 1 g IV piggyback every 24 hours . REVIEW OF SYSTEMS: Constitutional: No documented fever, no chills, no night sweats. No weight change. Positive for weakness, positive for fatigue and lethargy. HEENT: No headache. No blurred vision or double vision, no loss of vision. No loss of Hearing, no ringing in the ears, no dizziness. No nasal drainage or congestion. No epistaxis. No sore throat. Lungs: No shortness of breath, no cough, no sputum production. No wheezing. Reports dyspnea with activity. Cardiovascular: No chest pain, positive for left lower extremity edema. No palpitations. No paroxysmal nocturnal dyspnea. No orthopnea. No lightheadedness or dizziness. No syncopal episodes. Abdominal: Reports no abdominal pain. No nausea, vomiting. No diarrhea. No constipation. No bloody or tarry stools reports loss of appetite. Genitourinary: No dysuria, increased frequency, urgency. No urinary retention. Musculoskeletal: positive for myalgias. No muscle weakness, positive for gait dysfunction, positive for frequent falls, positive for left leg pain Integumentary: no lesions. No rash or pruritus. No unusual bruising. No change in hair or nails. Neurologic: No aphasia. No facial droop. stuporous but arousable. No head injury. No headache. No paralysis, positive for parasthesia in the left leg Psychiatric: Positive for anxiety and depression. Endocrine: hyperglycemia. PHYSICAL EXAMINATION: General: 70-year-old who is lying down in bed appears stuporous but arousable. HEENT: Head is atraumatic, normocephalic, pupils were equal round reactive to light and recommendation, extraocular muscle movement were intact, sclera nonicteric, conjunctivae were pale, mucous membranes of the mouth are somewhat dry. Neck: Supple, no JVP, decreased carotid upstroke bilaterally, no lymphadenopathy. Chest: Decreased breath sounds at the bases, few rhonchi, minimal expiratory wheezes, no chest wall tenderness, no intercostal retractions. Heart: First heart sound is normal, second heart sounds normal, there is systolic ejection murmur 2/6 located in the left sternal border. , Abdomen: Soft, nontender, nondistended, positive bowel sounds, no hepatosplenomegaly. Extremities: There is right ebawl-wam-iojh amputation, left lower extremity with chronic skin changes of the left kirk, dorsalis pedis could not be palpated. Neurologic examination: Patient is awake alert and oriented X1, cranial nerves II-12 appear grossly intact, muscle power were 3 out of 5 in upper extremities and 1 out of 5 in the left lower extremity, deep tendon reflexes were depressed. ASSESSMENT AND PLAN: 1. Acute hypercarbic respiratory failure due to CO2 narcosis due to acute exacerbation of COPD/obstructive sleep apnea with obesity hypoventilation syndrome. Continue patient on BiPAP, continue patient on nebulized treatment in the form of DuoNeb 3 mg nebulization 4 times every day, continue oxygen support, Pulmicort consultation, continue with current ICU management 2. Acute kidney injury secondary to acute tubular necrosis and aggressive diuresis. Continue IV fluid resuscitation the form of normal saline at 75 mL an hour discontinue diuretics. 3. Metabolic encephalopathy due to CO2 narcosis and elevated Ammonia levels Continue BiPAP, continue bronchodilator, add Lactulose 20 gr orally bid. 4. Hypertension and hypertensive cardiovascular disease. We will resume the patient metoprolol ER 50 mg orally once every day as well as losartan 50 mg orally once every day, monitor the patient blood pressure very closely . 5. Hyperlipidemia. Continue low-cholesterol diet and atorvastatin 40 mg orally once every day, discontinue gemfibrozil. 6. Diabetes mellitus type 2 insulin requiring. Resume Lantus 96 units at bedtime along with the Humalog 13 units before each meal along with a sliding scale insulin, continue Januvia 50 mg orally once every day. 7. Diabetic polyneuropathy. . Continue Lyrica 100 mg orally twice every day. 8. Obesity with obstructive sleep apnea and obesity hypoventilation syndrome continue with current BiPAP. 9. 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 Continue current pain management. hold off [place] and baclofen. 10. Bipolar disorder. Continue Lexapro 20 mg orally once every day,decrease Seroquel to 150 mg orally at bedtime 11. Severe PAD status post a recent arterial Doppler of the left lower extremity that document and moderate to severe disease has been under the care of . 12. Urinary tract infection with . E. coli bacteremia that is probably ESBL . Off Levaquin she was started on Invanz 1 g IV piggyback every 24 hours. 13. hypothyroidism. Continue patient on Synthroid and increase the dose to 150 mcg orally daily. 14. restless leg syndrome. Continue Requip 0.5 mg at bedtime. 15. Essential tremor. hold off Primidone 16. Vitamin D deficiency. Patient has been on vitamin D 50,000 units once every week. 17. GERD. Continue omeprazole 20 mg orally once every day. 18. Glaucoma. Continue Xalatan 1 drop in both eyes at bedtime. 19. Recurrent DVT. Continue Xarelto 15 mg orally once every day. 20. GI prophylaxis. Continue PPI. 21. DVT prophylaxis. Continue Xarelto 15 mg once every day. 22. History of CAD with cardiac arrest status post left heart catheterization with PCI. Continue patient on metoprolol ER 50 mg orally once every day, continue losartan 50 mg orally once every day, continue Lipitor 40 mg orally once every day, aspirin 81 mg once every day. 23. PT OT evaluation and social work associate consultation for discharge planning. Objective - Vital Signs Vital signs: Vital Signs Temp 98.6 F 10/12/20 08:00 Pulse 72 10/12/20 12:00 Resp 35 H 10/12/20 12:00 BP 137/62 10/12/20 12:00 Pulse Ox 92 L 10/12/20 12:00 Intake & Output 10/11/20 10/12/20 10/12/20 18:59 06:59 18:59 Intake Total 1450 1680 550 Output Total 675 1140 360 Balance 775 540 190 Weight 136.078 kg 138 kg Intake: IV 1430 190 Sodium Chloride 0.9% 1, 1430 190 000 ml @ 130 mls/hr IV . Q7H42M [facility] Rx#:[id number] Intake, IV Titration 1450 Amount Levofloxacin 750Mg-D5w 150 Pmx 750 mg In Dextrose/ Water 1 150ml.bag @ 100 mls/hr IVPB Q48H [facility] Rx#: [id number] Sodium Chloride 0.9% 1, 1300 000 ml @ 130 mls/hr IV . Q7H42M [facility] Rx#:[id number] Oral 250 360 Output: Urine 675 1140 360 Other: Voiding Method Indwelling Catheter Indwelling Catheter Indwelling Catheter - Labs CBC & Chem 7: 10/12/20 03:15 10/12/20 03:15 Labs: Abnormal Lab Results - Last 24 Hours (Table) 10/11/20 10/12/20 10/12/20 Range/Units 21:06 03:15 03:15 WBC 18.5 H (3.8-10.6) k/uL MCV 104.2 H (80.0-100.0) fL Neutrophils # (Manual) 14.80 H (1.3-7.7) k/uL Potassium 5.4 H (3.5-5.1) mmol/L BUN 42 H (7-17) mg/dL Creatinine 1.26 H (0.52-1.04) mg/dL Glucose 198 H (74-99) mg/dL POC Glucose (mg/dL) 131 H (75-99) mg/dL Magnesium 2.6 H (1.6-2.3) mg/dL AST 47 H (14-36) U/L Alkaline Phosphatase 146 H (38-126) U/L 10/12/20 10/12/20 Range/Units 06:56 11:13 WBC (3.8-10.6) k/uL MCV (80.0-100.0) fL Neutrophils # (Manual) (1.3-7.7) k/uL Potassium (3.5-5.1) mmol/L BUN (7-17) mg/dL Creatinine (0.52-1.04) mg/dL Glucose (74-99) mg/dL POC Glucose (mg/dL) 243 H 224 H (75-99) mg/dL Magnesium (1.6-2.3) mg/dL AST (14-36) U/L Alkaline Phosphatase (38-126) U/L Microbiology - Last 24 Hours (Table) 10/11/20 05:52 Blood Culture Gram Stain - Preliminary Blood Blood Culture - Preliminary Gram Neg Bacilli 10/11/20 19:00 Blood Culture Gram Stain - Preliminary Blood Blood Culture - Preliminary Escherichia coli 10/11/20 05:45 Blood Culture - Final Blood 10/11/20 06:00 Blood Culture - Final Blood 10/11/20 05:56 Urine Culture - Preliminary Urine,Voided
[2020-10-12 16:36] LABS: Glucose,Whole Blood 202 mg/dL (75-99)
[2020-10-12] MEDS: MAG HYDROX/AL HYDROX/SIMETH 30 ML CUP PO PRN ×2 (16:37→20:42)
[2020-10-12 20:00] LABS: Glucose,Whole Blood 254 mg/dL (75-99)
[2020-10-12] MEDS: ATORVASTATIN 40 MG TAB PO SCH (20:20)
[2020-10-12] MEDS: QUEtiapine 50 MG TAB PO SCH (20:20)
[2020-10-12] MEDS: RIVAROXABAN 20 MG TAB PO SCH (20:21)
[2020-10-12] MEDS: INSULIN DETEMIR (LEVEMIR) 100 UNIT/ML SYR SQ SCH (20:22)
[2020-10-12] MEDS: LATANOPROST 0.005% OPHTH DROPS 2.5 ML BTL BOTH EYES SCH (20:23)
[2020-10-13 04:07] LABS: Calcium 10.2 mg/dL (8.4-10.2); Total Bilirubin 0.5 mg/dL (0.2-1.3)
[2020-10-13 04:25] LABS: HGB 12.4 gm/dL (11.4-16.0); Hypochromasia Slight; MCH 33.2 pg (25.0-35.0); MCHC 31.7 g/dL (31.0-37.0); MCV 104.7 fL (80.0-100.0); Macrocytosis Moderate; Mean Platelet Volume 10.7; Platelet Count 201 k/uL (150-450); RBC 3.73 m/uL (3.80-5.40); RDW 15.1 % (11.5-15.5); WBC 14.2 k/uL (3.8-10.6)
[2020-10-13 05:41] LABS: Band Neutrophils % 11 %; Lymphocytes # (M) 1.42 k/uL (1.0-4.8); Monocytes # (M) 0.57 k/uL (0-1.0); Neutrophils % (M) 75 %; Nucleated Red Blood Cells 0 /100 WBC (0-0); Total Cells Counted 100
[2020-10-13 05:47] LABS: Albumin 4.2 g/dL (3.5-5.0)
[2020-10-13 05:49] LABS: Potassium 6.6 mmol/L (3.5-5.1)
[2020-10-13] MEDS: LEVOTHYROXINE 75 MCG TAB PO SCH (06:18)
[2020-10-13] MEDS: ERTAPENEM 1 GM in SODIUM CHLORIDE 0.9% 50 ML IVPB SCH (06:18)
[2020-10-13] MEDS: methylPREDNISolone SOD SUCCI 125 MG/2 ML VIAL IV SCH (06:18)
[2020-10-13] MEDS: HYDROcodone/APAP 5-325MG 1 EACH TAB PO PRN ×3 (06:19→23:53)
[2020-10-13 06:45] LABS: Glucose,Whole Blood 199 mg/dL (75-99)
[2020-10-13] MEDS: INSULIN ASPART (NovoLOG) 100 UNIT/ML VIAL SQ SCH ×7 (06:50→21:05)
[2020-10-13] MEDS: IPRATROPIUM-ALBUTEROL 3 ML NEB INHALATION SCH ×4 (07:54→19:26)
[2020-10-13] MEDS: SYMBICORT 160-4.5 MCG INHALER INHALATION SCH ×2 (07:54→19:26)
[2020-10-13] MEDS: LOSARTAN 50 MG TAB PO SCH ×2 (08:06→08:20)
[2020-10-13] MEDS: amLODIPine 10 MG TAB PO SCH (08:06)
[2020-10-13] MEDS: TAMSULOSIN 0.4 MG CAP.ER.24H PO SCH ×2 (08:06→16:34)
[2020-10-13] MEDS: ASPIRIN 81 MG PO SCH (08:06)
[2020-10-13] MEDS: LINAGLIPTIN 5 MG TABLET PO SCH (08:07)
[2020-10-13] MEDS: METOPROLOL SUCCINATE (ER) 100 MG TAB.ER.24H PO SCH ×2 (08:07→21:05)
[2020-10-13] MEDS: lamoTRIgine 25 MG TAB PO SCH ×2 (08:07→21:05)
[2020-10-13] MEDS: ESCITALOPRAM 20 MG TAB PO SCH (08:07)
[2020-10-13] MEDS ORDERED: LEVOFLOXACIN 750MG-D5W PMX 750 MG in DEXTROSE/WATER 1 150ML.BAG IVPB SCH (09:00)
[2020-10-13] MEDS: FUROSEMIDE 40 MG TAB PO SCH (09:45)
[2020-10-13] MEDS: MAG HYDROX/AL HYDROX/SIMETH 30 ML CUP PO PRN ×2 (09:45→13:05)
[2020-10-13 11:39] LABS: Glucose,Whole Blood 226 mg/dL (75-99)
--- NOTE | 2020-10-13 11:40 | P.PN ---
Subjective Progress Note Date: 10/13/20 70-year-old female who resides at one of the local nursing homes. The patient apparently presents to the emergency department with mental status changes. The patient was not able to provide any history. She was evaluated by the ER physician was thought to have a urinary tract infection, possible underlying sepsis. He call me about the possibility of an ICU admission. Patient's currently on BiPAP with settings of IPAP 12, EPAP 6, and 40%. She's getting saline at 130 mL an hour, and IV Levaquin. She has a history of previous right [id number] amputation. I saw her last in June for a episode of acute hypoxemic respiratory failure, secondary to COPD exacerbation, CHF, and sleep apnea. Currently, white count 14.8, hemoglobin 13.3, hematocrit 40.6, and platelet count 259,000. PT, INR, and PTT are normal. Sodium 141, potassium 5.2, chlorides 98, CO2 32, anion gap 11, BUN 50, and creatinine 1.32. Lactic acid 1.3 calcium 10.7, ammonia 45, LDH 926, C-reactive protein 3.4, and N- terminal proBNP 991, TSH 92, and urine was light orange color, cloudy, 3+ protein, large blood, positive for both leukocyte esterase and nitrite, with greater than 182 WBCs, and moderate bacteria. Should it also had many white blood cell clumps. Chest x-ray showed cardiomegaly, with pulmonary vascular congestion, and possible underlying infiltrates, which could be on the basis of atelectasis and/or pneumonia. Chest x-ray itself was very difficult to evaluate given her body habitus. The patient is seen today 10/12/2020 in follow-up in the intensive care unit. She is currently up in a chair at the bedside. Awake and alert in no acute distress. She was on BiPAP last night 01/12 and 50% FiO2. She is currently on 5 L nasal cannula to maintain O2 saturation in the 90s. She has 0.9 normal sinus 130 ML's per hour. Only complaint this morning is that of back pain which is chronic. Blood cultures positive for E. coli. Urine culture pending. White count 18.5. Hemoglobin 13.0. Sodium 140. Potassium 5.4. Creatinine 1.26. Glucose 198. AST 47. ALT 20. Chest x-ray reveals stable cardiomegaly with left effusion and adjacent atelectasis. She remains on bronchodilators, IV Solu-Medrol. Antibiotics in the form of ertapenem. Anticoagulated with Xarelto. Patient is seen today 10/13/2020 in follow-up in the intensive care unit. Awake and alert in no acute distress. Currently sitting up in a chair at the bedside. She is on 5 L nasal cannula and maintaining O2 saturation in the 90s. No IV fluids. She's been afebrile. Hemodynamically stable. Blood cultures positive for E. coli. Urine culture positive for gram-negative bacilli. White count 14.2. Hemoglobin 12.4. Sodium 136. Potassium 5.8. Creatinine 1.19. She remains on Symbicort, DuoNeb inhalations, prednisone. Anticoagulated with Xarelto. Antibiotics in the form of ertapenem. Objective - Vital Signs Vital signs: Vital Signs Temp 98.3 F 10/13/20 04:00 Pulse 72 10/13/20 08:08 Resp 16 10/13/20 04:00 BP 130/63 10/13/20 04:00 Pulse Ox 93 L 10/13/20 04:00 Intake & Output 10/12/20 10/13/20 10/13/20 18:59 06:59 18:59 Intake Total 1390 670 Output Total 560 1575 Balance 830 -905 Intake: IV 310 320 .9 320 Sodium Chloride 0.9% 1, 310 000 ml @ 130 mls/hr IV . Q7H42M [facility] Rx#:[id number] Oral 1080 350 Output: Urine 560 1575 Other: Voiding Method Indwelling Catheter Indwelling Catheter # Bowel Movements 1 - Exam Awake, alert, 70-year-old female patient, up in a chair at the bedside, on 5 L nasal cannula alternating with BiPAP. HEENT examination is grossly unremarkable. Neck supple. Full range of motion. No adenopathy thyromegaly or neck vein distention. Cardiovascular examination reveals regular rhythm rate. S1-S2 normal. No S3 or S4. No discernible murmur noted. Heart sounds are very distant. Heart rate 72 bpm. Lungs reveal bilateral rhonchi. Crackles in the left lung base. Breath sounds equal. Abdomen is grossly obese. No bowel sounds. No masses. Extremities reveal a right [id number] amputation. The left lower extremity shows some changes of chronic venous stasis and hyperpigmentation. Minimal edema of the left leg. Skin is without rash or lesion. Neurologic examination nonfocal. Alert and oriented. - Labs CBC & Chem 7: 10/13/20 03:16 10/13/20 06:50 Labs: Abnormal Lab Results - Last 24 Hours (Table) 10/12/20 10/12/20 10/13/20 Range/Units 16:35 19:59 03:16 WBC 14.2 H (3.8-10.6) k/uL RBC 3.73 L (3.80-5.40) m/uL MCV 104.7 H (80.0-100.0) fL Neutrophils # (Manual) 12.20 H (1.3-7.7) k/uL Sodium (137-145) mmol/L Potassium (3.5-5.1) mmol/L Carbon Dioxide (22-30) mmol/L BUN (7-17) mg/dL Creatinine (0.52-1.04) mg/dL Glucose (74-99) mg/dL POC Glucose (mg/dL) 202 H 254 H (75-99) mg/dL AST (14-36) U/L Alkaline Phosphatase (38-126) U/L 10/13/20 10/13/20 10/13/20 Range/Units 03:16 06:43 06:50 WBC (3.8-10.6) k/uL RBC (3.80-5.40) m/uL MCV (80.0-100.0) fL Neutrophils # (Manual) (1.3-7.7) k/uL Sodium 136 L (137-145) mmol/L Potassium 6.6 H* 5.8 H (3.5-5.1) mmol/L Carbon Dioxide 20 L (22-30) mmol/L BUN 47 H (7-17) mg/dL Creatinine 1.19 H (0.52-1.04) mg/dL Glucose 209 H (74-99) mg/dL POC Glucose (mg/dL) 199 H (75-99) mg/dL AST 46 H (14-36) U/L Alkaline Phosphatase 134 H (38-126) U/L Microbiology - Last 24 Hours (Table) 10/11/20 05:52 Blood Culture Gram Stain - Final Blood Blood Culture - Preliminary Escherichia coli 10/11/20 19:00 Blood Culture Gram Stain - Final Blood Blood Culture - Final Escherichia coli 10/11/20 05:56 Urine Culture - Preliminary Urine,Voided Gram Neg Bacilli Assessment and Plan Assessment: 1 Altered mental status, secondary to acute on chronic hypoxemic and hypercapnic respiratory failure, likely multifactorial, in part related to COPD, CHF, possible pneumonia, possible underlying sepsis, obstructive sleep apnea syndrome, and Pickwickian syndrome. Recovered. 2 Bacteremia secondary to E. coli. Currently on ertapenem 3 Profound hypothyroidism, ruled out myxedema coma. 4 History of COPD. 5 History of coronary artery disease. 6 History of CHF. 7 History of CVA. 8 History of dementia. 9 History of diabetes mellitus. 10 History of deep venous thrombosis. 11 History of hyperlipidemia. 12 History of hypertension. 13 Prior history of myocardial infarction. 14 Stage III chronic kidney disease. 15 Peripheral artery disease. 16 Status post right [id number] amputation. 17 Morbid obesity. 18 Multiple other medical problems and comorbidities. Plan: The patient was seen and evaluated by Dr. Otero Remains awake and alert Stable for transfer out of the ICU We will continue to follow I, the cosigning physician, performed a history & physical examination of the patient. Lungs sounds scattered rhonchi, crackles in the left base. Maintaining good O2 saturations in the 90s on 5 L nasal cannula alternating with BiPAP 12/6 and 50% FiO2. I discussed the assessment and plan of care with my nurse practitioner, Danay Meeks. I attest to the above note as dictated by her.
[2020-10-13] MEDS ORDERED: SODIUM POLYSTYRENE SULFONATE 15 GM/60 ML BOTTLE PO STA (12:29)
[2020-10-13 16:23] LABS: Glucose,Whole Blood 159 mg/dL (75-99)
[2020-10-13 20:51] LABS: Glucose,Whole Blood 164 mg/dL (75-99)
[2020-10-13] MEDS: QUEtiapine 50 MG TAB PO SCH (21:03)
[2020-10-13] MEDS: ATORVASTATIN 40 MG TAB PO SCH (21:04)
[2020-10-13] MEDS: RIVAROXABAN 20 MG TAB PO SCH (21:05)
[2020-10-13] MEDS: LATANOPROST 0.005% OPHTH DROPS 2.5 ML BTL BOTH EYES SCH (21:05)
[2020-10-13] MEDS: INSULIN DETEMIR (LEVEMIR) 100 UNIT/ML SYR SQ SCH (21:06)
[2020-10-14 04:26] LABS: Albumin 3.9 g/dL (3.5-5.0); Calcium 10.4 mg/dL (8.4-10.2); Potassium 4.8 mmol/L (3.5-5.1); Total Bilirubin 0.1 mg/dL (0.2-1.3); Total Protein 7.6 g/dL (6.3-8.2)
[2020-10-14] MEDS: ERTAPENEM 1 GM in SODIUM CHLORIDE 0.9% 50 ML IVPB SCH (05:09)
[2020-10-14 05:14] LABS: HCT 38.7 % (34.0-46.0); HGB 12.2 gm/dL (11.4-16.0); Hypochromasia Slight; MCH 33.2 pg (25.0-35.0); MCHC 31.5 g/dL (31.0-37.0); MCV 105.6 fL (80.0-100.0); Macrocytosis Moderate; Mean Platelet Volume 11.6; Platelet Count 220 k/uL (150-450); RBC 3.67 m/uL (3.80-5.40); RDW 15.1 % (11.5-15.5)
[2020-10-14] MEDS: LEVOTHYROXINE 75 MCG TAB PO SCH (05:19)
[2020-10-14 06:03] LABS: Glucose,Whole Blood 91 mg/dL (75-99)
[2020-10-14] MEDS: HYDROcodone/APAP 5-325MG 1 EACH TAB PO PRN ×4 (06:04→23:45)
[2020-10-14 06:31] LABS: Band Neutrophils % 5 %; Eosinophils # (M) 0.18 k/uL (0-0.7); Large Platelets Present; Lymphocytes # (M) 2.18 k/uL (1.0-4.8); Monocytes # (M) 0.46 k/uL (0-1.0); Neutrophils % (M) 65 %; Nucleated Red Blood Cells 7 /100 WBC (0-0); Total Cells Counted 200; WBC 9.1 k/uL (3.8-10.6)
[2020-10-14 06:32] LABS: Howell-Jolly Bodies Present; Polychromasia Present
[2020-10-14 06:33] LABS: Anisocytosis (M) Present
[2020-10-14] MEDS: INSULIN ASPART (NovoLOG) 100 UNIT/ML VIAL SQ SCH ×7 (07:06→20:00)
[2020-10-14] MEDS: IPRATROPIUM-ALBUTEROL 3 ML NEB INHALATION SCH ×4 (07:18→19:35)
[2020-10-14] MEDS: SYMBICORT 160-4.5 MCG INHALER INHALATION SCH ×2 (07:19→19:35)
--- NOTE | 2020-10-14 08:43 | P.PN ---
Subjective Progress Note Date: 10/14/20 HISTORY OF PRESENT ILLNESS: This is a 70-year-old female who I follow at [facility] with a p revious medical history significant for hypertension and hypertensive cardiovascular disease, hyperlipidemia, diabetes mellitus type 2 with diabetic polyneuropathy, hypothyroidism, CAD post PCI and stent placement, essential tremor, restless leg syndrome, bipolar disorder, recurrent DVT, peripheral arterial occlusive disease, with a recent blister formation to the left kirk was investigated as an outpatient and she had an arterial Doppler of the left lower extremity that did show evidence of moderate to severe PAD, and she was scheduled for CT angiography of the left lower extremity for further evaluation vascular surgery consultation, along with MRI of the left lower extremity to rule out any osteomyelitis of the kirk bone, patient was in her usual state of health about yesterday at around 5:00 AM today when the nurse came to check on the patient and she was completely out of it, patient was stuporous non- arousable, her eyes were bloodshot, and the patient was confused she was direct ed to go to the emergency department at [facility] she was found to have significant urinary tract infection, with leukocytosis, she also was quite drowsy she was given Levaquin 750 mg IV piggyback 1, after obtaining urine culture and blood culture, she was started on IV fluid resuscitation the form of normal saline, she did not have any blood gases, she was seen in consultation by pulmonary medicine, she was placed on BiPAP, she was admitted to the ICU, she is a bit more arousable now her daughter and her grandson was at the bedside and they would've difficulty about her current condition. 10/12: Today the patient is sitting up in a chair she is more awake and more alert, she is complaining of increased in the lower back as well as both hips, she is asking to increase her Buchanan to 7.5/325 mg 4 times every day, she was kept off baclofen, she was kept off primidone, and will continue as such, physical therapy evaluation, patient would be moved outside the ICU, she will be maintained on IV anabiotic, until the final result of the cultures are back patient does appear to have a bacteremia with E. coli in the blood likely ESBL she was switched from Levaquin to Invanz 1 g IV piggyback every 24 hours . 10/14: Patient remains in the intensive care unit waiting for a bed on the [facility] floor. Patient states her pain is better today. She denies having any shortness of breath and no cough. Wagoner catheter remains in place and appears to be clear output. Repeat blood culture is in process and waiting to finalize in order to put PICC line in place for IV antibiotics. Patient is complaining of some gastric reflux before she eats breakfast, Carafate twice daily added. One dose of IV Lasix 20 mg in the chest x-rays been ordered. Patient has been afebrile, heart rate in the 60s, blood pressure 116/63, pulse ox 95% on 5 L nasal cannula. Repeat blood work reveals WBC 9.1, hemoglobin 12.2, platelet count 220. Electrolytes are normal. BUN 15 creatinine 1.31. Total bilirubin 0.1, AST 42, ALT 24, alkaline phosphatase 139. Blood sugars are running between 91 and 164. Anticipate discharge back to [facility] on Tuesday. Consult with Dr. Crystal added. REVIEW OF SYSTEMS: Constitutional: No documented fever, no chills. No weight change. Positive for weakness, positive for fatigue and lethargy. HEENT: No headache. No blurred vision or double vision, no loss of vision. No loss of Hearing, no ringing in the ears, no dizziness. No nasal drainage or congestion. No epistaxis. No sore throat. Lungs: No shortness of breath, no cough, no sputum production. No wheezing. Reports dyspnea with activity. Cardiovascular: No chest pain, positive for left lower extremity edema. No palpitations. No paroxysmal nocturnal dyspnea. No orthopnea. No lightheade dness or dizziness. No syncopal episodes. Abdominal: Reports no abdominal pain. No nausea, vomiting. No diarrhea. No constipation. No bloody or tarry stools reports loss of appetite. Genitourinary: No dysuria, increased frequency, urgency. No urinary retention- Wagoner in place. Musculoskeletal: positive for myalgias. No muscle weakness, positive for gait dysfunction, positive for frequent falls, positive for left leg pain Integumentary: no lesions. No rash or pruritus. No unusual bruising. No change in hair or nails. Neurologic: No aphasia. No facial droop. stuporous but arousable. No head injury. No headache. No paralysis, positive for parasthesia in the left leg Psychiatric: Positive for anxiety and depression. Endocrine: hyperglycemia. PHYSICAL EXAMINATION: General: 70-year-old who is sitting in chair, awake and alert, appears to be in no acute distress. HEENT: Head is atraumatic, normocephalic, pupils were equal round reactive to light and recommendation, extraocular muscle movement were intact, sclera nonicteric, conjunctivae were pale, mucous membranes of the mouth are somewhat dry. Neck: Supple, no JVP, decreased carotid upstroke bilaterally, no lymphadenopa thy. Chest: Decreased breath sounds at the bases, few rhonchi, minimal expiratory wheezes, no chest wall tenderness, no intercostal retractions. Heart: First heart sound is normal, second heart sounds normal, there is systolic ejection murmur 2/6 located in the left sternal border. , Abdomen: Soft, nontender, nondistended, positive bowel sounds, no hepatosplenomegaly. Extremities: There is right [id number] amputation, left lower extremity with chronic skin changes of the left kirk, dorsalis pedis could not be palpated. Neurologic examination: Patient is awake alert and oriented X3, cranial nerves II-12 appear grossly intact, muscle power were 3 out of 5 in upper extremities and 3 out of 5 in the left lower extremity. ASSESSMENT AND PLAN: 1. Acute hypercarbic respiratory failure due to CO2 narcosis due to acute exacerbation of COPD/obstructive sleep apnea with obesity hypoventilation syndrome. Continue patient on X Jean therapy, continue patient on nebulized treatment in the form of DuoNeb 3 mg nebulization 4 times every day, continue oxygen support, Pulmicort consultation, transfer out of ICU once a bed is available, discontinue Wagoner. 2. Acute kidney injury secondary to acute tubular necrosis and aggressive diuresis. Off IV fluids. 3. Metabolic encephalopathy due to CO2 narcosis and elevated Ammonia levels, resolved. Continue oxygen therapy, continue bronchodilator, lactulose discontinued. 4. Hypertension and hypertensive cardiovascular disease. Continue metoprolol ER 100 mg orally twice daily, losartan 50 mg orally once every day, monitor the patient blood pressure very closely . 5. Hyperlipidemia. Continue low-cholesterol diet and atorvastatin 40 mg orally once every day, discontinue gemfibrozil. 6. Diabetes mellitus type 2 insulin requiring. Resume Lantus 96 units at bedtime along with the Humalog 13 units before each meal along with a sliding scale insulin, continue Januvia 50 mg orally once every day. 7. Diabetic polyneuropathy. . Continue Lyrica 100 mg orally twice every day. 8. Obesity with obstructive sleep apnea and obesity hypoventilation syndrome continue with current BiPAP. 9. 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 Continue current pain management. hold off Buchanan and baclofen. 10. Bipolar disorder. Continue Lexapro 20 mg orally once every day,decrease Seroquel to 150 mg orally at bedtime 11. Severe PAD status post a recent arterial Doppler of the left lower extremity that document and moderate to severe disease has been under the care of . 12. Urinary tract infection with ESBL E. coli bacteremia. Continue Invanz 1 g IV piggyback every 24 hours, await clearance of bacteremia, PICC line placement, consult with Dr. Crystal. 13. Hypothyroidism. Continue patient on Synthroid and increase the dose to 150 mcg orally daily. 14. Restless leg syndrome. Continue Requip 0.5 mg at bedtime. 15. Essential tremor. hold off Primidone 16. Vitamin D deficiency. Patient has been on vitamin D 50,000 units once every week. 17. GERD. Continue omeprazole 20 mg orally once every day. 18. Glaucoma. Continue Xalatan 1 drop in both eyes at bedtime. 19. Recurrent DVT. Continue Xarelto 15 mg orally once every day. 20. GI prophylaxis. Continue PPI. 21. DVT prophylaxis. Continue Xarelto 15 mg once every day. 22. History of CAD with cardiac arrest status post left heart catheterization with PCI. Continue patient on metoprolol ER 50 mg orally once every day, continue losartan 50 mg orally once every day, continue Lipitor 40 mg orally once every day, aspirin 81 mg once every day. 23. Chronic systolic heart failure. PT OT evaluation and social sciences professor consultation for discharge planning. DISCHARGE PLAN Return to [facility] Impression and plan of care have been directed as dictated by the signing physician. Kemi Rodriguez nurse practitioner acting as scribe for signing physician. Objective - Vital Signs Vital signs: Vital Signs Temp 98.4 F 10/14/20 04:00 Pulse 64 10/14/20 07:30 Resp 24 10/14/20 04:00 BP 116/63 10/14/20 04:00 Pulse Ox 95 10/14/20 04:00 Intake & Output 10/13/20 10/14/20 10/14/20 18:59 06:59 18:59 Intake Total 240 50 Output Total 700 695 Balance -460 -645 Intake: IV 50 Ertapenem 1 gm In Sodium 50 Chloride 0.9% 50 ml @ 100 mls/hr IVPB Q24H [facility] Rx# :[id number] Oral 240 Output: Urine 700 695 Other: Voiding Method Indwelling Catheter Indwelling Catheter - Labs CBC & Chem 7: 10/14/20 03:13 10/14/20 03:13 Labs: Abnormal Lab Results - Last 24 Hours (Table) 10/13/20 10/13/20 10/13/20 Range/Units 11:37 16:22 20:49 RBC (3.80-5.40) m/uL MCV (80.0-100.0) fL Nucleated RBCs (0-0) /100 WBC BUN (7-17) mg/dL Creatinine (0.52-1.04) mg/dL Glucose (74-99) mg/dL POC Glucose (mg/dL) 226 H 159 H 164 H (75-99) mg/dL Calcium (8.4-10.2) mg/dL Total Bilirubin (0.2-1.3) mg/dL AST (14-36) U/L Alkaline Phosphatase (38-126) U/L 10/14/20 10/14/20 Range/Units 03:13 03:13 RBC 3.67 L (3.80-5.40) m/uL MCV 105.6 H (80.0-100.0) fL Nucleated RBCs 7 H (0-0) /100 WBC BUN 50 H (7-17) mg/dL Creatinine 1.31 H (0.52-1.04) mg/dL Glucose 102 H (74-99) mg/dL POC Glucose (mg/dL) (75-99) mg/dL Calcium 10.4 H (8.4-10.2) mg/dL Total Bilirubin 0.1 L (0.2-1.3) mg/dL AST 42 H (14-36) U/L Alkaline Phosphatase 139 H (38-126) U/L Microbiology - Last 24 Hours (Table) 10/11/20 05:56 Urine Culture - Final Urine,Voided Escherichia coli 10/11/20 05:52 Blood Culture Gram Stain - Final Blood Blood Culture - Preliminary Escherichia coli 10/11/20 19:00 Blood Culture Gram Stain - Final Blood Blood Culture - Final Escherichia coli
[2020-10-14] MEDS ORDERED: predniSONE 20 MG TAB PO SCH (09:00)
[2020-10-14] MEDS ORDERED: ERGOCALCIFEROL 1,250 MCG (50,000 IU) CAPSULE PO SCH (09:00)
[2020-10-14] MEDS: ASPIRIN 81 MG PO SCH (09:06)
[2020-10-14] MEDS: TAMSULOSIN 0.4 MG CAP.ER.24H PO SCH ×2 (09:07→16:42)
[2020-10-14] MEDS: LOSARTAN 50 MG TAB PO SCH (09:07)
[2020-10-14] MEDS: amLODIPine 10 MG TAB PO SCH (09:08)
[2020-10-14] MEDS: FUROSEMIDE 40 MG TAB PO SCH ×2 (09:08→16:42)
[2020-10-14] MEDS: lamoTRIgine 25 MG TAB PO SCH ×2 (09:09→20:02)
[2020-10-14] MEDS: ESCITALOPRAM 20 MG TAB PO SCH (09:09)
[2020-10-14] MEDS: METOPROLOL SUCCINATE (ER) 100 MG TAB.ER.24H PO SCH ×2 (09:10→20:02)
[2020-10-14] MEDS: LINAGLIPTIN 5 MG TABLET PO SCH (09:10)
[2020-10-14] MEDS: MAG HYDROX/AL HYDROX/SIMETH 30 ML CUP PO PRN ×2 (09:23→16:41)
[2020-10-14] MEDS ORDERED: FUROSEMIDE 10 MG/ML 2 ML VIAL IV ONE (09:37)
--- NOTE | 2020-10-14 10:09 | XR ---
EXAMINATION TYPE: XR chest 1V portable DATE OF EXAM: 10/14/2020 COMPARISON: 10/12/2020 INDICATION: Fluid overload TECHNIQUE: Single frontal view of the chest is obtained. FINDINGS: The heart size is enlarged. The pulmonary vasculature is prominent. Diffuse increased lung markings are present bilaterally greater at the lung bases. Findings can be co mpatible with congestive heart failure. Findings are progressive from the recent comparison. IMPRESSION: 1. Findings compatible with Congestive heart failure.
[2020-10-14 11:45] LABS: Glucose,Whole Blood 99 mg/dL (75-99)
[2020-10-14 16:13] LABS: Glucose,Whole Blood 137 mg/dL (75-99)
[2020-10-14] MEDS: SUCRALFATE 1 GM TAB PO SCH (16:45)
--- NOTE | 2020-10-14 17:10 | P.PN ---
Subjective Progress Note Date: 10/14/20 70-year-old female who resides at one of the local nursing homes. The patient apparently presents to the emergency department with mental status changes. The patient was not able to provide any history. She was evaluated by the ER physician was thought to have a urinary tract infection, possible underlying sepsis. He call me about the possibility of an ICU admission. Patient's currently on BiPAP with settings of IPAP 12, EPAP 6, and 40%. She's getting saline at 130 mL an hour, and IV Levaquin. She has a history of previous right [id number] amputation. I saw her last in June for a episode of acute hypoxemic respiratory failure, secondary to COPD exacerbation, CHF, and sleep apnea. Currently, white count 14.8, hemoglobin 13.3, hematocrit 40.6, and platelet count 259,000. PT, INR, and PTT are normal. Sodium 141, potassium 5.2, chlorides 98, CO2 32, anion gap 11, BUN 50, and creatinine 1.32. Lactic acid 1.3 calcium 10.7, ammonia 45, LDH 926, C-reactive protein 3.4, and N-terminal proBNP 991, TSH 92, and urine was light orange color, cloudy, 3+ protein, large blood, positive for both leukocyte esterase and nitrite, with greater than 182 WBCs, and moderate bacteria. Should it also had many white blood cell clumps. Chest x-ray showed cardiomegaly, with pulmonary vascular con gestion, and possible underlying infiltrates, which could be on the basis of atelectasis and/or pneumonia. Chest x-ray itself was very difficult to evaluate given her body habitus. The patient is seen today 10/12/2020 in follow-up in the intensive care unit. She is currently up in a chair at the bedside. Awake and alert in no acute distress. She was on BiPAP last night 01/12 and 50% FiO2. She is currently on 5 L nasal cannula to maintain O2 saturation in the 90s. She has 0.9 normal sinus 130 ML's per hour. Only complaint this morning is that of back pain which is chronic. Blood cultures positive for E. coli. Urine culture pending. White count 18.5. Hemoglobin 13.0. Sodium 140. Potassium 5.4. Creatinine 1.26. Glucose 198. AST 47. ALT 20. Chest x-ray reveals stable cardiomegaly with left effusion and adjacent atelectasis. She remains on bronchodilators, IV Solu-Medrol. Antibiotics in the form of ertapenem. Anticoagulated with Xarelto. Patient is seen today 10/13/2020 in follow-up in the intensive care unit. Awake and alert in no acute distress. Currently sitting up in a chair at the bedside. She is on 5 L nasal cannula and maintaining O2 saturation in the 90s. No IV fluids. She's been afebrile. Hemodynamically stable. Blood cultures positive for E. coli. Urine culture positive for gram-negative bacilli. White count 14.2. Hemoglobin 12.4. Sodium 136. Potassium 5.8. Creatinine 1.19. She remains on Symbicort, DuoNeb inhalations, prednisone. Anticoagulated with Xarelto. Antibiotics in the form of ertapenem. 10/14/2020, the patient is being seen for a follow-up H is doing up on a chair. She is calm and comfortable. His electrocardiogram liters per minute nasal cannula. Nevertheless, overnight, she is using the BiPAP. Noted the patient also has a CPAP machine at home. She is doing well. Altered mentation. No fever or chills. She is hemodynamically stable. She had an ESBL producing E. coli and the patient is currently on IV Invanz. No significant shortness of breath. She remains on bronchodilators. She was given steroids which I think can be easily discontinued. The patient is also on diuretics on Lasix 40 mg by mouth twice a day. She is on Levemir insulin Lantus 6 units along with 8 units with meals of NovoLog and a sliding scale coverage. No other significant events overnight. The patient is a selective overflow. Blood work from today was reviewed. Creatinine is at 1.3. BUN is at 50. Serum bicarbs at 30. White cell count is at 9.1 with a hemoglobin of 12.2. Objective - Vital Signs Vital signs: Vital Signs Temp 97.4 F L 10/14/20 16:39 Pulse 64 10/14/20 16:39 Resp 22 10/14/20 16:39 BP 141/64 10/14/20 16:39 Pulse Ox 92 L 10/14/20 16:39 Intake & Output 10/13/20 10/14/20 10/14/20 18:59 06:59 18:59 Intake Total 240 50 Output Total 572 129 4724 Balance -254 -111 -6828 Intake: IV 50 Ertapenem 1 gm In Sodium 50 Chloride 0.9% 50 ml @ 100 mls/hr IVPB Q24H [facility] Rx# :[id number] Oral 240 Output: Urine 304 757 7238 Other: Voiding Method Indwelling Catheter Indwelling Catheter Indwelling Catheter - Exam Awake, alert, 70-year-old female patient, up in a chair at the bedside, on 5 L nasal cannula alternating with BiPAP. HEENT examination is grossly unremarkable. Neck supple. Full range of motion. No adenopathy thyromegaly or neck vein distention. Cardiovascular examination reveals regular rhythm rate. S1-S2 normal. No S3 or S4. No discernible murmur noted. Heart sounds are very distant. Lungs reveal bilateral rhonchi. Crackles in the left lung base. Breath sounds equal. Abdomen is grossly obese. No bowel sounds. No masses. Extremities reveal a right [id number]-[id number] amputation. The left lower extremity shows some changes of chronic venous stasis and hyperpigmentation. Minimal edema of the left leg. Skin is without rash or lesion. Neurologic examination nonfocal. Alert and orientedd - Labs CBC & Chem 7: 10/14/20 03:13 10/14/20 03:13 Labs: Abnormal Lab Results - Last 24 Hours (Table) 10/13/20 10/14/20 10/14/20 Range/Units 20:49 03:13 03:13 RBC 3.67 L (3.80-5.40) m/uL MCV 105.6 H (80.0-100.0) fL Nucleated RBCs 7 H (0-0) /100 WBC BUN 50 H (7-17) mg/dL Creatinine 1.31 H (0.52-1.04) mg/dL Glucose 102 H (74-99) mg/dL POC Glucose (mg/dL) 164 H (75-99) mg/dL Calcium 10.4 H (8.4-10.2) mg/dL Total Bilirubin 0.1 L (0.2-1.3) mg/dL AST 42 H (14-36) U/L Alkaline Phosphatase 139 H (38-126) U/L 10/14/20 Range/Units 16:12 RBC (3.80-5.40) m/uL MCV (80.0-100.0) fL Nucleated RBCs (0-0) /100 WBC BUN (7-17) mg/dL Creatinine (0.52-1.04) mg/dL Glucose (74-99) mg/dL POC Glucose (mg/dL) 137 H (75-99) mg/dL Calcium (8.4-10.2) mg/dL Total Bilirubin (0.2-1.3) mg/dL AST (14-36) U/L Alkaline Phosphatase (38-126) U/L Microbiology - Last 24 Hours (Table) 10/13/20 12:54 Blood Culture - Preliminary Blood No Growth after 24 hours 10/13/20 12:41 Blood Culture - Preliminary Blood No Growth after 24 hours Assessment and Plan Plan: 1 Altered mental status, secondary to acute on chronic hypoxemic and hypercapnic respiratory failure, likely multifactorial, in part related to COPD, CHF, possible pneumonia, possible underlying sepsis, obstructive sleep apnea syndrome, and Pickwickian syndrome. Her logical the patient is much improved. The patient remains on 5 L of oxygen by nasal cannula. No signs of any CO2 narcosis at this point in time the patient is following commands and answering questions appropriately. The chest x-ray still showing pulmonary vascular congestion and some cardiomegaly. Findings are still compatible with CHF and fluid. Noncardiac pulmonary edema cannot be completely excluded. 2 sepsis secondary to UTI secondary to E. coli. Currently on ertapenem as the patient has a ESBL producing E. coli. 3 Profound hypothyroidism, ruled out myxedema coma at a time of admission the patient is currently on thyroid replacement mental status is improved. 4 History of COPD. 5 History of coronary artery disease. 6 History of CHF. 7 History of CVA. 8 History of dementia. 9 History of diabetes mellitus. 10 History of deep venous thrombosis. 11 History of hyperlipidemia. 12 History of hypertension. 13 Prior history of myocardial infarction. 14 Stage III chronic kidney disease. 15 Peripheral artery disease. 16 Status post right [id number] amputation. 17 Morbid obesity. 18 Multiple other medical problems and comorbidities. Plan: Remains awake and alert Discontinue the oral prednisone Continue oral Lasix Fluid restriction IV Invanz Overnight CPAP/BiPAP Condition is much optimized Continue thyroid hormone replacement Stable for transfer out of the ICU We will continue to follow
[2020-10-14 19:53] LABS: Glucose,Whole Blood 170 mg/dL (75-99)
[2020-10-14] MEDS: INSULIN DETEMIR (LEVEMIR) 100 UNIT/ML SYR SQ SCH (20:00)
[2020-10-14] MEDS: RIVAROXABAN 20 MG TAB PO SCH (20:01)
[2020-10-14] MEDS: LATANOPROST 0.005% OPHTH DROPS 2.5 ML BTL BOTH EYES SCH (20:01)
[2020-10-14] MEDS: ATORVASTATIN 40 MG TAB PO SCH (20:01)
[2020-10-14] MEDS: QUEtiapine 50 MG TAB PO SCH (20:01)
--- NOTE | 2020-10-14 22:40 | P.CONS ---
History of Present Illness - Reason for Consult Consult date: 10/14/20 ESBL e.coli UTI Requesting physician: Kemi Rodriguez - Chief Complaint mental status changes x 1 day - History of Present Illness History of present illness : Patient is 70-year female with multiple comorbidities in residential resident the patient was brought into the [facility] ER on 10/11/2020 for evaluation of mental status changes the patient was noticed to be stuporous nonarousable and eyes were bloodshot patient was confused with the symptom the patient was rushed to the [facility] ER on arrival to the ER the patient did have a fever of 103 F patient did have a white count fourteen point 8 repeat was 13.5 however normalized as of this morning creatinine was mildly elevated as well as AST patient did have a positive UA adair PCR was negative blood and urine culture has been finalized with ESBL E. coli that has prompted this infectious disease consultation patient did have my evaluation this morning he is awake and alert the patient denies having any headache denies having any chest pain or shortness of breath no cough no nausea no vomiting no abdominal pain and no diarrhea Review of system: CONSTITUTIONAL: Positive for weakness along with the fever. EYES: No complaint. ENT: No complaint. RESPIRATORY: No complaint. CARDIOVASCULAR: No complaint. GENITOURINARY: As per history of present illness GASTROINTESTINAL: As per history of present illness. MUSCULOSKELETAL: No complaint. INTEGUMENTARY: No complaint. PSYCHOLOGIC: No complaint. ENDOCRINE: No complaint. NEUROLOGIC: No complaint. Past medical history : Reviewed, documented below Past surgical history : Reviewed, documented below Social history: Reviewed, documented below Medications: Reviewed, as documented below EXAMINATION: Vital sigans= Reviewed and documented below GENERAL DESCRIPTION: Elderly female up in the chair, no distress. No tachypnea or accessory muscle of respiration use. HEENT: Shows Pallor , no scleral icterus. Oral mucous membrane is dry. NECK: Trachea central, no thyromegaly. LUNGS: Unlabored breathing. Clear to auscultation anteriorly. No wheeze or crackle. HEART: S1, S2, regular rate and rhythm. ABDOMEN: Soft, no tenderness , guarding or rigidity EXTREMITIES: No edema of feet. SKIN: No rash, no masses palpable. NEUROLOGICAL: The patient is awake, alert, oriented x3, mood and affect normal. LABS AND RADIOLOGY: Reviewed results see below Assessment : Patient presented to hospital with sepsis in this we did have fever elevated white count sources complicated urine tract infection with evidence of secondary bacteremia both urine and blood cultures have been finalized with ESBL E. coli likely infecting pathogen Plan: 1-Invanz 1 g daily 2-obtain ultrasound of the kidneys and bladder to make sure no evidence of any structural abnormality 3-gentle IV fluid We will follow on clinical condition and cultures to further adjust medication if needed Thank you for this consultation we will follow the patient along with you Past Medical History Past Medical History: Asthma, Coronary Artery Disease (CAD), Heart Failure, COPD, CVA/TIA, Dementia, Diabetes Mellitus, Deep Vein Thrombosis (DVT), Eye Disorder, Hyperlipidemia, Hypertension, Liver Disease, Myocardial Infarction (MN), Renal Disease, Sleep Apnea/CPAP/BIPAP, Thyroid Disorder, Vascular Disorder Additional Past Medical History / Comment(s): Pt recently admitted to [facility] on 06/28/20 with acute hypercarbic respiratory failure d/t CO2 narcosis d/t exacerbation COPD with obesity hypoventilation syndrome, JANES, metabolis encephalopathy d/t CO2 narcosis. 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 Last Myocardial Infarction Date:: 2009 History of Any Multi-Drug Resistant Organisms: None Reported, Unobtainable Past Surgical History: Heart Catheterization With Stent, Hysterectomy, Joint Replacement Additional Past Surgical History / Comment(s): Splenectomy, R AKA, bilateral total knee arthroplasties, R AKA, PCI with stent, "umbrella" device inserted d/t DVTs. Past Anesthesia/Blood Transfusion Reactions: No Reported Reaction, Motion Sickness Date of Last Stent Placement:: 2009 Past Psychological History: Anxiety, Bipolar, Depression Smoking Status: Former smoker Past Alcohol Use History: Unable to Obtain Past Drug Use History: Unable to Obtain - Past Family History Mother Family Medical History: Coronary Artery Disease (CAD), Myocardial Infarction (MN) Additional Family Medical History / Comment(s): Mother of a MN in her 60s. Father Family Medical History: Respiratory Disorder Additional Family Medical History / Comment(s): ETOH abuse, TB Medications and Allergies Home Medications Medication Instructions Recorded Confirmed Type Acetaminophen Tab [Tylenol] 325 mg PO Q6H PRN 06/28/20 10/11/20 History Albuterol Nebulized [Ventolin 2.5 mg INHALATION RT-BID 06/28/20 10/11/20 History Nebulized] Aspirin 81 mg PO DAILY@0800 06/28/20 10/11/20 History Atorvastatin [Lipitor] 40 mg PO HS@199906/28/20 10/11/20 History Ergocalciferol [Vitamin D2 (1250 1,250 mcg PO TU 06/28/20 10/11/20 History Mcg = 24711 Iu)] Escitalopram [Lexapro] 20 mg PO DAILY@0800 06/28/20 10/11/20 History Fluticasone/Salmeterol [Advair Hfa 2 puff INHALATION RT-BID@0800,159906/28/20 10/11/20 History 115-21 Mcg Inhaler] Gemfibrozil [Lopid] 600 mg PO BID@0800,159906/28/20 10/11/20 History Ketoconazole 2% Cream [Nizoral 2%] 1 applic TOPICAL Q12H PRN 06/28/20 10/11/20 History Latanoprost/Pf [Latanoprost 0.005% 1 drop BOTH EYES HS@199906/28/20 10/11/20 History Eye Drop] Losartan [Cozaar] 50 mg PO DAILY@0800 06/28/20 10/11/20 History QUEtiapine FUMARATE 150 mg PO HS@199906/28/20 10/11/20 History Rivaroxaban [Xarelto] 20 mg PO HS@199906/28/20 10/11/20 History Tamsulosin [Flomax] 0.4 mg PO BID@0800,1600 06/28/20 10/11/20 History rOPINIRole HCL [Requip] 0.5 mg PO HS@199906/28/20 10/11/20 History sitaGLIPtin PHOSPHATE [Januvia] 50 mg PO DAILY@0800 06/28/20 10/11/20 History Insulin Aspart [NovoLOG Flexpen] 13 units SQ AC-TID 07/10/20 10/11/20 History Insulin Glargine [Lantus Vial] 96 unit SQ HS@199907/10/20 10/11/20 History Primidone [Mysoline] 125 mg PO HS@199907/10/20 10/11/20 History Metoprolol Succinate (ER) [Toprol 100 mg PO BID tab.er.24h 07/16/20 10/11/20 Rx XL] Albuterol Nebulized [Ventolin 2.5 mg INHALATION RT-QID PRN 10/11/20 10/11/20 History Nebulized] Furosemide [Lasix] 40 mg PO BID@0400,1300 10/11/20 10/11/20 History HYDROcodone/APAP 10-325MG [[place] 1 tab PO Q8H 10/11/20 10/11/20 History 10-325] Levothyroxine Sodium [Synthroid] 112 mcg PO DAILY@0500 10/11/20 10/11/20 History Mag Hydrox/Al Hydrox/Simeth 15 ml PO ACHS 10/11/20 10/11/20 History [Maalox] Nitroglycerin Sl Tabs [Nitrostat] 0.4 mg SL Q5M PRN 10/11/20 10/11/20 History Pregabalin [Lyrica] 100 mg PO BID@0800,1600 10/11/20 10/11/20 History amLODIPine [Norvasc] 10 mg PO DAILY@0800 10/11/20 10/11/20 History lamoTRIgine [LaMICtal Xr] 50 mg PO DAILY@0500 10/11/20 10/11/20 History Allergies Allergy/AdvReac Type Severity Reaction Status Date / Time adhesive tape Allergy Unknown Verified 10/11/20 07:41 sertraline [From Zoloft] Allergy Unknown Verified 10/11/20 07:41 vancomycin Allergy Unknown Verified 10/11/20 07:41 birds Allergy Unknown Uncoded 10/11/20 07:41 Physical Exam Vitals: Vital Signs Temp Pulse Resp BP Pulse Ox 10/14/20 08:00 98.4 F 63 18 135/64 95 10/14/20 07:30 64 10/14/20 07:19 60 10/14/20 04:00 98.4 F 61 24 116/63 95 10/14/20 02:00 55 L 23 94 L 10/14/20 00:00 59 L 20 120/63 93 L 10/13/20 22:00 61 20 93 L 10/13/20 20:25 61 21 93 L 10/13/20 20:00 98.5 F 68 20 144/67 95 10/13/20 19:44 62 10/13/20 19:26 64 10/13/20 18:00 60 27 H 133/70 94 L 10/13/20 16:13 58 L 10/13/20 16:00 98.2 F 63 20 133/70 93 L 10/13/20 15:59 60 10/13/20 14:00 58 L 26 H 95 10/13/20 12:34 72 10/13/20 12:19 70 10/13/20 12:00 64 27 H 93 L Intake and Output 10/13/20 10/14/20 10/14/20 22:59 06:59 14:59 Intake Total 50 Output Total 745 300 Balance -745 -250 Intake: IV 50 Ertapenem 1 gm In Sodium 50 Chloride 0.9% 50 ml @ 100 mls/hr IVPB Q24H [facility] Rx# :[id number] Output: Urine 745 300 Other: Voiding Method Indwelling Catheter Indwelling Catheter Indwelling Catheter Results CBC & Chem 7: 10/14/20 03:13 10/14/20 03:13 Labs: Abnormal Lab Results - Last 24 Hours (Table) 10/13/20 10/13/20 10/13/20 Range/Units 11:37 16:22 20:49 RBC (3.80-5.40) m/uL MCV (80.0-100.0) fL Nucleated RBCs (0-0) /100 WBC BUN (7-17) mg/dL Creatinine (0.52-1.04) mg/dL Glucose (74-99) mg/dL POC Glucose (mg/dL) 226 H 159 H 164 H (75-99) mg/dL Calcium (8.4-10.2) mg/dL Total Bilirubin (0.2-1.3) mg/dL AST (14-36) U/L Alkaline Phosphatase (38-126) U/L 10/14/20 10/14/20 Range/Units 03:13 03:13 RBC 3.67 L (3.80-5.40) m/uL MCV 105.6 H (80.0-100.0) fL Nucleated RBCs 7 H (0-0) /100 WBC BUN 50 H (7-17) mg/dL Creatinine 1.31 H (0.52-1.04) mg/dL Glucose 102 H (74-99) mg/dL POC Glucose (mg/dL) (75-99) mg/dL Calcium 10.4 H (8.4-10.2) mg/dL Total Bilirubin 0.1 L (0.2-1.3) mg/dL AST 42 H (14-36) U/L Alkaline Phosphatase 139 H (38-126) U/L Microbiology - Last 24 Hours (Table) 10/11/20 05:56 Urine Culture - Final Urine,Voided Escherichia coli 10/11/20 05:52 Blood Culture Gram Stain - Final Blood Blood Culture - Preliminary Escherichia coli 10/11/20 19:00 Blood Culture Gram Stain - Final Blood Blood Culture - Final Escherichia coli
[2020-10-15 06:02] LABS: Glucose,Whole Blood 116 mg/dL (75-99)
[2020-10-15] MEDS: LEVOTHYROXINE 75 MCG TAB PO SCH (06:10)
[2020-10-15] MEDS: ERTAPENEM 1 GM in SODIUM CHLORIDE 0.9% 50 ML IVPB SCH (06:10)
[2020-10-15] MEDS: SUCRALFATE 1 GM TAB PO SCH (06:11)
[2020-10-15] MEDS: INSULIN ASPART (NovoLOG) 100 UNIT/ML VIAL SQ SCH ×2 (07:30→10:15)
--- NOTE | 2020-10-15 07:45 | P.DS ---
Providers Date of admission: 10/11/20 06:47 Expected date of discharge: 10/15/20 Attending physician: Damian Silva Consults: 10/11/20 06:48 Consult Physician Routine Consulting Provider: Danielle Garcia Consult Reason/Comments: icu Do you want consulting provider notified?: Yes 10/14/20 08:41 Consult Physician Routine Consulting Provider: Ambar Crystal Consult Reason/Comments: ESBL Ecoli UTI and Bacteremia Do you want consulting provider notified?: Yes Primary care physician: Damian Silva Hospital Course: HISTORY OF PRESENT ILLNESS: This is a 70-year-old female who I follow at [facility] with a previous medical history significant for hypertension and hypertensive cardiovascular disease, hyperlipidemia, diabetes mellitus type 2 with diabetic polyneuropathy, hypothyroidism, CAD post PCI and stent placement, essential tremor, restless leg syndrome, bipolar disorder, recurrent DVT, peripheral arterial occlusive disease, with a recent blister formation to the left kirk was investigated as an outpatient and she had an arterial Doppler of the left lower extremity that did show evidence of moderate to severe PAD, and she was scheduled for CT angiography of the left lower extremity for further evaluation vascular surgery consultation, along with MRI of the left lower extremity to rule out any osteomyelitis of the kirk bone, patient was in her usual state of health about yesterday at around 5:00 AM today when the nurse came to check on the patient and she was completely out of it, patient was stuporous non- arousable, her eyes were bloodshot, and the patient was confused she was directed to go to the emergency department at [facility] she was found to have significant urinary tract infection, with leukocytosis, she also was quite drowsy she was given Levaquin 750 mg IV piggyback 1, after obtaining urine culture and blood culture, she was started on IV fluid resuscitation the form of normal saline, she did not have any blood gases, she was seen in consultation by pulmonary medicine, she was placed on BiPAP, she was admitted to the ICU, she is a bit more arousable now her daughter and her grandson was at the bedside and they would've difficulty about her current condition. 10/12: Today the patient is sitting up in a chair she is more awake and more alert, she is complaining of increased in the lower back as well as both hips, she is asking to increase her [place] to 7.5/325 mg 4 times every day, she was kept off baclofen, she was kept off primidone, and will continue as such, physical therapy evaluation, patient would be moved outside the ICU, she will be maintained on IV anabiotic, until the final result of the cultures are back patient does appear to have a bacteremia with E. coli in the blood likely ESBL she was switched from Levaquin to Invanz 1 g IV piggyback every 24 hours . 10/14: Patient remains in the intensive care unit waiting for a bed on the [facility] floor. Patient states her pain is better today. She denies having any shortness of breath and no cough. Wagoner catheter remains in place and appears to be clear output. Repeat blood culture is in process and waiting to finalize in order to put PICC line in place for IV antibiotics. Patient is complaining of some gastric reflux before she eats breakfast, Carafate twice daily added. One dose of IV Lasix 20 mg in the chest x-rays been ordered. Patient has been afebrile, heart rate in the 60s, blood pressure 116/63, pulse ox 95% on 5 L nasal cannula. Repeat blood work reveals WBC 9.1, hemoglobin 12.2, platelet count 220. Electrolytes are normal. BUN 15 creatinine 1.31. Total bilirubin 0.1, AST 42, ALT 24, alkaline phosphatase 139. Blood sugars are running between 91 and 164. [facility]. Consult with Dr. Crystal added. 10/15: Patient remains in the intensive care unit waiting for [facility] bed. She denies having any shortness of breath, diarrhea, sore throat, fever or chills. No nausea or vomiting. Plan is to discontinue Wagoner catheter, midline ordered and antibiotics clarified with Dr. Crystal for Invanz for 2 week course. Patient has been afebrile, heart rate 71, pulse ox 92% on 5 L nasal cannula, blood pressure 146/71. Blood cultureno growth at greater than 24 hours. Capillary blood glucose running between 99 and 170. Patient will be discharged once all arrangements are completed. ASSESSMENT AND PLAN: 1. Acute hypercarbic respiratory failure due to CO2 narcosis due to acute exacerbation of COPD/obstructive sleep apnea with obesity hypoventilation syndrome. 2. Acute kidney injury secondary to acute tubular necrosis and aggressive diuresis. 3. Metabolic encephalopathy due to CO2 narcosis and elevated Ammonia levels, resolved. 4. Hypertension and hypertensive cardiovascular disease. 5. Hyperlipidemia. 6. Diabetes mellitus type 2 insulin requiring. 7. Diabetic polyneuropathy. 8. Obesity with obstructive sleep apnea and obesity hypoventilation syndrome. 9. 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 . 10. Bipolar disorder. . 11. Severe PAD status post a recent arterial Doppler of the left lower extremity that document and moderate to severe disease has been under the care of . 12. Urinary tract infection with ESBL E. coli bacteremia. 13. Hypothyroidism. 14. Restless leg syndrome. 15. Essential tremor. 16. Vitamin D deficiency. 17. GERD. 18. Glaucoma. 19. Recurrent DVT. 20. History of CAD with cardiac arrest status post left heart catheterization with PCI. DISCHARGE PLAN Return to [facility] Impression and plan of care have been directed as dictated by the signing physician. Kemi Rodriguez nurse practitioner acting as scribe for signing physician. Patient Condition at Discharge: Good Plan - Discharge Summary Discharge Rx Participant: No New Discharge Prescriptions: New Sucralfate [Carafate] 1 gm PO AC-BID tab HYDROcodone/APAP 5-325MG [[place] 5-325] 1 each PO Q6HR PRN #12 tab PRN Reason: Pain QUEtiapine [SEROquel] 150 mg PO HS@2000 tab Ertapenem [INVanz] 1 gm IVPB Q24H #14 each INSULIN ASPART (NovoLOG) [NovoLOG (formulary)] 8 unit SQ AC-TID ml Levothyroxine Sodium [Synthroid] 150 mcg PO DAILY@0500 tab Continue Ketoconazole 2% Cream [Nizoral 2%] 1 applic TOPICAL Q12H PRN PRN Reason: Rash Rivaroxaban [Xarelto] 20 mg PO HS@2000 Losartan [Cozaar] 50 mg PO DAILY@0800 Mag Hydrox/Al Hydrox/Simeth [Maalox] 15 ml PO ACHS Furosemide [Lasix] 40 mg PO BID@0400,1300 Acetaminophen Tab [Tylenol] 325 mg PO Q6H PRN PRN Reason: Pain Fluticasone/Salmeterol [Advair Hfa 115-21 Mcg Inhaler] 2 puff INHALATION RT- BID@0800,1600 Albuterol Nebulized [Ventolin Nebulized] 2.5 mg INHALATION RT-BID sitaGLIPtin PHOSPHATE [Januvia] 50 mg PO DAILY@0800 rOPINIRole HCL [Requip] 0.5 mg PO HS@1999 Latanoprost/Pf [Latanoprost 0.005% Eye Drop] 1 drop BOTH EYES HS@1999 Tamsulosin [Flomax] 0.4 mg PO BID@0800,1600 Escitalopram [Lexapro] 20 mg PO DAILY@0800 Ergocalciferol [Vitamin D2 (1250 Mcg = 52750 Iu)] 1,250 mcg PO TU Atorvastatin [Lipitor] 40 mg PO HS@1999 Aspirin 81 mg PO DAILY@0800 Insulin Glargine [Lantus Vial] 96 unit SQ HS@1999 Metoprolol Succinate (ER) [Toprol XL] 100 mg PO BID tab.er.24h Albuterol Nebulized [Ventolin Nebulized] 2.5 mg INHALATION RT-QID PRN PRN Reason: Shortness Of Breath lamoTRIgine [LaMICtal Xr] 50 mg PO DAILY@0500 amLODIPine [Norvasc] 10 mg PO DAILY@0800 Nitroglycerin Sl Tabs [Nitrostat] 0.4 mg SL Q5M PRN PRN Reason: Chest Pain Changed Pregabalin [Lyrica] 100 mg PO BID@0800,1600 #6 cap Discontinued Gemfibrozil [Lopid] 600 mg PO BID@0800,1600 QUEtiapine FUMARATE 150 mg PO HS@1999 Insulin Aspart [NovoLOG Flexpen] 13 units SQ AC-TID Primidone [Mysoline] 125 mg PO HS@1999 HYDROcodone/APAP 10-325MG [[place] 10-325] 1 tab PO Q8H Levothyroxine Sodium [Synthroid] 112 mcg PO DAILY@0500 Discharge Medication List Acetaminophen Tab [Tylenol] 325 mg PO Q6H PRN 06/28/20 [History] Albuterol Nebulized [Ventolin Nebulized] 2.5 mg INHALATION RT-BID 06/28/20 [History] Aspirin 81 mg PO DAILY@0800 06/28/20 [History] Atorvastatin [Lipitor] 40 mg PO HS@199906/28/20 [History] Ergocalciferol [Vitamin D2 (1250 Mcg = 61504 Iu)] 1,250 mcg PO TU 06/28/20 [History] Escitalopram [Lexapro] 20 mg PO DAILY@0800 06/28/20 [History] Fluticasone/Salmeterol [Advair Hfa 115-21 Mcg Inhaler] 2 puff INHALATION RT- BID@0800,1600 06/28/20 [History] Ketoconazole 2% Cream [Nizoral 2%] 1 applic TOPICAL Q12H PRN 06/28/20 [History] Latanoprost/Pf [Latanoprost 0.005% Eye Drop] 1 drop BOTH EYES HS@199906/28/20 [History] Losartan [Cozaar] 50 mg PO DAILY@0806/28/20 [History] Rivaroxaban [Xarelto] 20 mg PO HS@199906/28/20 [History] Tamsulosin [Flomax] 0.4 mg PO BID@0800,1600 06/28/20 [History] rOPINIRole HCL [Requip] 0.5 mg PO HS@199906/28/20 [History] sitaGLIPtin PHOSPHATE [Januvia] 50 mg PO DAILY@0806/28/20 [History] Insulin Glargine [Lantus Vial] 96 unit SQ HS@199907/10/20 [History] Metoprolol Succinate (ER) [Toprol XL] 100 mg PO BID tab.er.24h 07/16/20 [Rx] Albuterol Nebulized [Ventolin Nebulized] 2.5 mg INHALATION RT-QID PRN 10/11/20 [History] Furosemide [Lasix] 40 mg PO BID@0400,1300 10/11/20 [History] Mag Hydrox/Al Hydrox/Simeth [Maalox] 15 ml PO ACHS 10/11/20 [History] Nitroglycerin Sl Tabs [Nitrostat] 0.4 mg SL Q5M PRN 10/11/20 [History] amLODIPine [Norvasc] 10 mg PO DAILY@0800 10/11/20 [History] lamoTRIgine [LaMICtal Xr] 50 mg PO DAILY@0500 10/11/20 [History] Ertapenem [INVanz] 1 gm IVPB Q24H #14 each 10/15/20 [Rx] HYDROcodone/APAP 5-325MG [[place] 5-325] 1 each PO Q6HR PRN #12 tab 10/15/20 [Rx] INSULIN ASPART (NovoLOG) [NovoLOG (formulary)] 8 unit SQ AC-TID ml 10/15/20 [Rx] Levothyroxine Sodium [Synthroid] 150 mcg PO DAILY@0500 tab 10/15/20 [Rx] Pregabalin [Lyrica] 100 mg PO BID@0800,1600 #6 cap 10/15/20 [Rx] QUEtiapine [SEROquel] 150 mg PO HS@2000 tab 10/15/20 [Rx] Sucralfate [Carafate] 1 gm PO AC-BID tab 10/15/20 [Rx] Follow up Appointment(s)/Referral(s): Damian Silva MD [Primary Care Provider] - 1 Week (at [facility]) Ambulatory/Diagnostic Orders: Complete Blood Count w/diff [LAB.AMB] Location: None Selected Comprehensive Metabolic Panel [LAB.AMB] Location: None Selected Discharge Disposition: TRANSFER TO SNF/ECF
[2020-10-15] MEDS: IPRATROPIUM-ALBUTEROL 3 ML NEB INHALATION SCH ×2 (07:50→12:26)
[2020-10-15] MEDS: SYMBICORT 160-4.5 MCG INHALER INHALATION SCH (07:50)
--- NOTE | 2020-10-15 09:21 | US ---
EXAMINATION TYPE: US kidneys/renal and bladder DATE OF EXAM: 10/15/2020 COMPARISON: 01/27/2017 CLINICAL HISTORY: uti and bacteremia. UTI, bacteremia EXAM MEASUREMENTS: Right Kidney: 11.7 x 5.3 x 5.7 cm Left Kidney: 9.8 x 6.1 x 5.0 cm technical limitations due to patient's body habitus, morbidly obese. patient scanned in chair, unab le to move into bed Right Kidney: no evidence of hydronephrosis as visualized Left Kidney: limited evaluation Bladder: unable to visualize due to patient position and body habitus. Wagoner Catheter. There is no evidence for hydronephrosis at this point in time. No nephrolithiasis is seen. No pooja s are identified. The urinary bladder is anechoic. Bilateral ureteral jets are seen. IMPRESSION: Limited evaluation of the left kidney although no distinct abnormality seen.
[2020-10-15] MEDS: HYDROcodone/APAP 5-325MG 1 EACH TAB PO PRN (10:11)
[2020-10-15] MEDS: amLODIPine 10 MG TAB PO SCH (10:16)
[2020-10-15] MEDS: ASPIRIN 81 MG PO SCH (10:18)
[2020-10-15] MEDS: ESCITALOPRAM 20 MG TAB PO SCH (10:18)
[2020-10-15] MEDS: LINAGLIPTIN 5 MG TABLET PO SCH (10:19)
[2020-10-15] MEDS: lamoTRIgine 25 MG TAB PO SCH (10:19)
[2020-10-15] MEDS: FUROSEMIDE 40 MG TAB PO SCH (10:20)
[2020-10-15] MEDS: METOPROLOL SUCCINATE (ER) 100 MG TAB.ER.24H PO SCH (10:20)
[2020-10-15] MEDS: TAMSULOSIN 0.4 MG CAP.ER.24H PO SCH (10:20)
[2020-10-15] MEDS: LOSARTAN 50 MG TAB PO SCH (10:20)
--- NOTE | 2020-10-15 13:43 | PN ---
PROGRESS NOTE DATE OF SERVICE: 10/15/2020. REASON FOR FOLLOWUP: ESBL urinary tract infection. INTERVAL HISTORY: Patient is afebrile. The patient is currently breathing comfortably. Denies having any chest pain, shortness of breath or cough. No abdominal pain. No diarrhea. PHYSICAL EXAMINATION: Blood pressure is 146/70 with a pulse of 71, temperature 98.3. She is 93% on 5 L nasal cannula. General description is an elderly female up in the chair in no distress. Respiratory system: Unlabored breathing. Clear to auscultation anteriorly. Heart S1, S2. Regular rate and rhythm. Abdomen soft, no tenderness. LABS: No new labs have been obtained today. Blood cultures repeat on 10/13 has been negative so far. DIAGNOSTIC IMPRESSION AND PLAN: Patient with ESBL E. coli urinary tract infection, with secondary bacteremia. Ultrasound this morning no chest abnormality. She did get a midline and plan is for 2 weeks of IV Invanz and close outpatient followup. MMODL / IJN: [id number] /
[2020-10-15 13:48] VITALS: BP 137/75; PULSE 78; RESP 22; TEMP 98.1
--- NOTE | 2020-10-15 17:32 | P.PN ---
Subjective Progress Note Date: 10/15/20 Principal diagnosis: Altered mental status, acute on chronic hypoxic and hypercapnic respiratory failure, UTI and sepsis On 10/15/2020 patient seen in follow-up in intensive care unit, she is awaiting a bed on general medical floor. She is breathing comfortably, she has had no acute events overnight, she is currently on 3 L of oxygen pulse ox is 95%, no fever or chills, blood pressure stable, she remains on Invanz for ESBL E. coli urinary tract infection, follow blood cultures have been drawn and are pending at this time, patient is awaiting PICC line placement today for infusion of antibiotics in the postoperative period. Follow blood cultures have been negative. No fever or chills, blood pressure has been stable. Objective - Vital Signs Vital signs: Vital Signs Temp 98.1 F 10/15/20 08:00 Pulse 78 10/15/20 08:00 Resp 22 10/15/20 08:00 BP 137/75 10/15/20 08:00 Pulse Ox 95 10/15/20 08:00 Intake & Output 10/14/20 10/15/20 10/15/20 18:59 06:59 18:59 Intake Total 250 Output Total 1400 1050 Balance -1400 -800 Intake: IV 50 Ertapenem 1 gm In Sodium 50 Chloride 0.9% 50 ml @ 100 mls/hr IVPB Q24H [facility] Rx# :[id number] Oral 200 Output: Urine 1400 1050 Other: Voiding Method Indwelling Catheter Indwelling Catheter Indwelling Catheter - Exam GENERAL EXAM: Alert, very pleasant, 69-year-old white female, sitting up in a chair, 3 L with pulse ox of 95% comfortable in no apparent distress. HEAD: Normocephalic/atraumatic. EYES: Normal reaction of pupils, equal size. Conjunctiva pink, sclera white. NOSE: Clear with pink turbinates. THROAT: No erythema or exudates. NECK: No masses, no JVD, no thyroid enlargement, no adenopathy. CHEST: No chest wall deformity. Symmetrical expansion. LUNGS: Equal air entry with no crackles, wheeze, rhonchi or dullness. CVS: Regular rate and rhythm, normal S1 and S2, no gallops, no murmurs, no rubs ABDOMEN: Soft, nontender. No hepatosplenomegaly, normal bowel sounds, no guarding or rigidity. EXTREMITIES: No clubbing, no edema, no cyanosis, 2+ pulses and upper and lower extremities. MUSCULOSKELETAL: Muscle strength and tone normal. SPINE: No scoliosis or deformity SKIN: No rashes CENTRAL NERVOUS SYSTEM: Alert and oriented -3. No focal deficits, tone is normal in all 4 extremities. PSYCHIATRIC: Alert and oriented -3. Appropriate affect. Intact judgment and insight. - Labs CBC & Chem 7: 10/14/20 03:13 10/14/20 03:13 Labs: Abnormal Lab Results - Last 24 Hours (Table) 10/14/20 10/15/20 Range/Units 19:51 06:01 POC Glucose (mg/dL) 170 H 116 H (75-99) mg/dL Microbiology - Last 24 Hours (Table) 10/13/20 12:41 Blood Culture - Preliminary Blood No Growth after 48 hours 10/13/20 12:54 Blood Culture - Preliminary Blood No Growth after 48 hours Assessment and Plan Plan: 1 Altered mental status, secondary to acute on chronic hypoxemic and hypercapnic respiratory failure, likely multifactorial, in part related to COPD, CHF, possible pneumonia, possible underlying sepsis, obstructive sleep apnea syndrome, and Pickwickian syndrome. Her logical the patient is much improved. The patient remains on 5 L of oxygen by nasal cannula. No signs of any CO2 narcosis at this point in time the patient is following commands and answering questions appropriately. The chest x-ray still showing pulmonary vascular congestion and some cardiomegaly. Findings are still compatible with CHF and fluid. Noncardiac pulmonary edema cannot be completely excluded. 2 sepsis secondary to UTI secondary to E. coli. Currently on ertapenem as the p atient has a ESBL producing E. coli. 3 Profound hypothyroidism, ruled out myxedema coma at a time of admission the patient is currently on thyroid replacement mental status is improved. 4 History of COPD. 5 History of coronary artery disease. 6 History of CHF. 7 History of CVA. 8 History of dementia. 9 History of diabetes mellitus. 10 History of deep venous thrombosis. 11 History of hyperlipidemia. 12 History of hypertension. 13 Prior history of myocardial infarction. 14 Stage III chronic kidney disease. 15 Peripheral artery disease. 16 Status post right [id number] amputation. 17 Morbid obesity. 18 Multiple other medical problems and comorbidities. Plan: Patient has remained stable overnight, No fever or chills No specific complaints Follow blood cultures are negative PICC line is scheduled for today Patient will be going home on Invanz 1 g for 2 more weeks She stable for discharge home today I performed a history & physical examination of the patient and discussed their management with my nurse practitioner, Jada Cooley. I reviewed the nurse practitioner's note and agree with the documented findings and plan of care. Lung sounds are positive for diminished breath sounds throughout the lung hammer. The findings and the impression was discussed with the patient. I attest to the documentation by the nurse practitioner. Time with Patient: Less than 30
== END 2020-10-15 11:30 | DRG 871 ==
LOC: EC 05:42 → 2SICU 06:47 → EDBD 06:47 → 2SICU 10-12 04:43
PROVIDERS: ADMIT Internal Medicine; ATTEND Internal Medicine
PROC: 5A09457 Assistance with Respiratory Ventilation, 24-96 Consecutive Hours, Continuous Positive Airway Pressure (ICD-10-PCS; principal; 2020-10-11)
PROC: 05HF33Z Insertion of Infusion Device into Left Cephalic Vein, Percutaneous Approach (ICD-10-PCS; 2020-10-15 09:20)
DX: A41.51 Sepsis due to Escherichia coli [E. coli] (principal); J96.21 Acute and chronic respiratory failure with hypoxia; J96.22 Acute and chronic respiratory failure with hypercapnia; N17.0 Acute kidney failure with tubular necrosis; G93.41 Metabolic encephalopathy; I13.0 Hypertensive heart and chronic kidney disease with heart failure and stage 1 through stage 4 chronic kidney disease, or unspecified chronic kidney disease; J44.1 Chronic obstructive pulmonary disease with (acute) exacerbation; J44.0 Chronic obstructive pulmonary disease with (acute) lower respiratory infection; N39.0 Urinary tract infection, site not specified; Z16.12 Extended spectrum beta lactamase (ESBL) resistance; J98.11 Atelectasis; E66.2 Morbid (severe) obesity with alveolar hypoventilation; F05 Delirium due to known physiological condition; I50.22 Chronic systolic (congestive) heart failure; Z20.822 Contact with and (suspected) exposure to COVID-19; G89.4 Chronic pain syndrome; M54.9 Dorsalgia, unspecified; Z79.01 Long term (current) use of anticoagulants; Z89.611 Acquired absence of right leg above knee; I87.8 Other specified disorders of veins; E03.9 Hypothyroidism, unspecified; I25.10 Atherosclerotic heart disease of native coronary artery without angina pectoris; Z86.73 Personal history of transient ischemic attack (TIA), and cerebral infarction without residual deficits; F03.90 Unspecified dementia, unspecified severity, without behavioral disturbance, psychotic disturbance, mood disturbance, and anxiety; Z86.718 Personal history of other venous thrombosis and embolism; E78.5 Hyperlipidemia, unspecified; I25.2 Old myocardial infarction; N18.30 Chronic kidney disease, stage 3 unspecified; E11.22 Type 2 diabetes mellitus with diabetic chronic kidney disease; E11.51 Type 2 diabetes mellitus with diabetic peripheral angiopathy without gangrene; E11.42 Type 2 diabetes mellitus with diabetic polyneuropathy; F41.9 Anxiety disorder, unspecified; F31.9 Bipolar disorder, unspecified; G25.81 Restless legs syndrome; Z66 Do not resuscitate; G25.0 Essential tremor; M47.816 Spondylosis without myelopathy or radiculopathy, lumbar region; E55.9 Vitamin D deficiency, unspecified; K21.9 Gastro-esophageal reflux disease without esophagitis; M54.5 Low back pain; E07.9 Disorder of thyroid, unspecified; H57.9 Unspecified disorder of eye and adnexa; K76.9 Liver disease, unspecified; E86.0 Dehydration; K76.0 Fatty (change of) liver, not elsewhere classified; R16.1 Splenomegaly, not elsewhere classified; S80.822A Blister (nonthermal), left lower leg, initial encounter; M47.896 Other spondylosis, lumbar region; R32 Unspecified urinary incontinence; I77.9 Disorder of arteries and arterioles, unspecified; D63.1 Anemia in chronic kidney disease; H40.9 Unspecified glaucoma; Z79.4 Long term (current) use of insulin; Z79.899 Other long term (current) drug therapy; Z86.74 Personal history of sudden cardiac arrest; Z90.81 Acquired absence of spleen; Z90.710 Acquired absence of both cervix and uterus; Z87.891 Personal history of nicotine dependence; Z95.5 Presence of coronary angioplasty implant and graft; Z96.653 Presence of artificial knee joint, bilateral; Z79.82 Long term (current) use of aspirin; Z79.51 Long term (current) use of inhaled steroids; Z79.890 Hormone replacement therapy; Z91.048 Other nonmedicinal substance allergy status; Z88.1 Allergy status to other antibiotic agents
CPT/HCPCS: 36410; 36415; 71045; 76770; 76937; 80053; 81001; 82140; 82550; 83605; 83615; 83735; 83880; 84100; 84132; 84443; 84484; 85025; 85610; 85730; 86140; 87040; 87077; 87086; 87186; 87635; 93005; 94640; 94660; 96361; 96365; 96367; 96375; 99291